=== PATIENT | female | born 1970 | race Caucasian/White ===

== ENCOUNTER 2018-10-21 21:22 | Observation (INO) ==
[2018-10-21] MEDS ORDERED: SODIUM CHLORIDE 0.9% 500 ML IV SCH (22:00)
[2018-10-21 22:15] LABS: Hematocrit (blood only) 43.7 % (37-47); Hemoglobin 15.1 g/dL (12.0-16.0); Mean Corpuscular Hgb Conc 34.6 g/dL (32-36); Mean Platelet Volume 11.1 fL (7.4-10.4); Platelet Count 424 K/uL (130-400); RDW Coefficient of Variation 14.1 % (11.5-14.5); RDW Standard Deviation 49.2 fL (36.4-46.3); Red Blood Count 4.55 M/uL (4.2-5.4); White Blood Count 15.28 K/uL (4.8-10.8)
--- NOTE | 2018-10-21 22:15 | Emergency Department Note ---
Entered by Brandon Bazan acting as a scribe for Shiv Fulton DO History of Present Illness General Chief complaint: Cardiac Assessment Stated complaint: HEART NOT POUNDING RIGHT Source: patient History of Present Illness Provider complaint: Fluttering Onset (ago): hour(s) 1 Location: chest Pain Consistency: + constant Relieved By: + none Exacerbated By: + none Associated symptoms: + denies other symptoms (problems eating/drinking); no chest pain and no shortness of breath Treatments prior to arrival: none The patient is a 48 year old female who presents to the Emergency Room in need of a cardiac assessment. The patient reports that she gets intermittent fluttering that lasts for 15 seconds and that this has been going on for years, ever since her past heart attack. The fluttering usually subsides, but it did not stop tonight which prompted her to come to the ED. She adds that she has a heart murmur. The patient states that the fluttering started about 1 hour ago. The patient denies chest pain, shortness of breath, and problems eating/drinking. The patient is not currently on a blood thinner and states that she does not use tobacco/alcohol. She adds that she has a past surgical history of a hysterectomy due to cervical cancer. Home Medications Home Medications Medication Instructions Recorded Confirmed Type aspirin [Aspir-81] 81 mg PO DAILY 10/22/18 10/22/18 History ibuprofen [Advil] 600 mg PO DIRECTED PRN 10/22/18 10/22/18 History metoprolol succinate 100 mg PO BID 10/22/18 10/22/18 History omeprazole 20 mg PO DAILY 10/22/18 10/22/18 History rosuvastatin [Crestor] 40 mg PO HS 10/22/18 10/22/18 History Allergies Allergy/AdvReac Type Severity Reaction Status Date / Time Penicillins Allergy Severe SOB, HIVES Verified 10/22/18 01:19 fentanyl Allergy Intermediate ITCHY HIVES Verified 10/22/18 01:19 morphine Allergy Intermediate ITCHY HIVES Verified 10/22/18 01:19 adhesive Allergy Mild LOCAL Verified 10/22/18 01:19 HIVE/RASH NITRO AdvReac Intermediate profuse Uncoded 10/22/18 01:19 vomiting increases heart rate Past Med/Surg History Medical History CAD (coronary artery disease) Social History Preferred Language: Kazakh Beliefs That Will Affect Care: None Current Living Situation: Spouse Other Information That Helps Us Care for You: No Feels Safe at Home: Yes Safety Concerns: Feels Safe At This Time Smoking Status: Never smoker Hx Alcohol Use: No Hx Substance Use: No Review of Systems See HPI for pertinent positives & negatives. and A total of 10 systems reviewed and were otherwise negative Physical Exam Vital Signs Vital Signs - 24 hr 10/21/18 21:41 10/21/18 23:03 10/21/18 23:14 Temperature 36.9 C Temperature Source Oral Sepsis Recent Fever Within 48 Hours No Sepsis New/Unexplained Change in Mental Status No Sepsis Action Taken by Nursing No Action Required Pulse Rate 172 H 100 H Pulse Rate [Right Finger] 97 H Pulse Rhythm [Right Finger] Regular Pulse Strength [Right Finger] Normal Respiratory Rate 20 98 H Respiratory Effort / Characteristics Non-Labored Spontaneous Non-Labored Spontaneous Respiratory Depth Normal Normal Respiratory Pattern Regular Blood Pressure 212/114 H 169/101 H Blood Pressure [Left Arm] Blood Pressure [Right Arm] 169/101 H Blood Pressure Mean 146 Blood Pressure Mean [Left Arm] Blood Pressure Mean [Right Arm] 123 Blood Pressure Position Sitting Blood Pressure Position [Left Arm] Blood Pressure Position [Right Arm] Pulse Oximetry 98 98 Oxygen Delivery Method Room Air Room Air 10/21/18 23:38 10/21/18 23:52 10/22/18 00:17 Temperature Temperature Source Sepsis Recent Fever Within 48 Hours Sepsis New/Unexplained Change in Mental Status Sepsis Action Taken by Nursing Pulse Rate 99 H 92 H Pulse Rate [Right Finger] 92 H Pulse Rhythm [Right Finger] Regular Pulse Strength [Right Finger] Normal Respiratory Rate 18 Respiratory Effort / Characteristics Non-Labored Spontaneous Respiratory Depth Normal Respiratory Pattern Blood Pressure 161/91 H 162/101 H Blood Pressure [Left Arm] Blood Pressure [Right Arm] 141/96 H Blood Pressure Mean Blood Pressure Mean [Left Arm] Blood Pressure Mean [Right Arm] 111 Blood Pressure Position Blood Pressure Position [Left Arm] Blood Pressure Position [Right Arm] Pulse Oximetry 98 Oxygen Delivery Method Room Air 10/22/18 01:00 10/22/18 02:25 10/22/18 03:00 Temperature 37.1 C Temperature Source Oral Sepsis Recent Fever Within 48 Hours Sepsis New/Unexplained Change in Mental Status Sepsis Action Taken by Nursing Pulse Rate Pulse Rate [Right Finger] 93 H 78 88 Pulse Rhythm [Right Finger] Regular Regular Regular Pulse Strength [Right Finger] Normal Normal Normal Respiratory Rate 18 18 18 Respiratory Effort / Characteristics Non-Labored Spontaneous Non-Labored Non-Labored Spontaneous Respiratory Depth Normal Normal Normal Respiratory Pattern Regular Regular Blood Pressure Blood Pressure [Left Arm] Blood Pressure [Right Arm] 156/81 H 181/107 H 161/101 H Blood Pressure Mean Blood Pressure Mean [Left Arm] Blood Pressure Mean [Right Arm] 106 131 121 Blood Pressure Position Blood Pressure Position [Left Arm] Blood Pressure Position [Right Arm] Pulse Oximetry 97 98 97 Oxygen Delivery Method Room Air Room Air Room Air 10/22/18 03:25 10/22/18 04:18 10/22/18 07:30 Temperature 37.1 C 36.7 C 36.8 C Temperature Source Oral Oral Oral Sepsis Recent Fever Within 48 Hours Sepsis New/Unexplained Change in Mental Status Sepsis Action Taken by Nursing Pulse Rate Pulse Rate [Right Finger] 92 H 90 85 Pulse Rhythm [Right Finger] Pulse Strength [Right Finger] Respiratory Rate 18 16 16 Respiratory Effort / Characteristics Non-Labored Spontaneous Respiratory Depth Normal Normal Respiratory Pattern Regular Blood Pressure Blood Pressure [Left Arm] Blood Pressure [Right Arm] 161/101 H 137/83 115/75 Blood Pressure Mean Blood Pressure Mean [Left Arm] Blood Pressure Mean [Right Arm] 121 101 88 Blood Pressure Position Blood Pressure Position [Left Arm] Blood Pressure Position [Right Arm] Lying Lying Pulse Oximetry 97 96 97 Oxygen Delivery Method Room Air Room Air 10/22/18 07:45 10/22/18 11:21 10/22/18 13:11 Temperature 36.8 C 36.8 C Temperature Source Oral Sepsis Recent Fever Within 48 Hours Sepsis New/Unexplained Change in Mental Status Sepsis Action Taken by Nursing Pulse Rate 84 Pulse Rate [Right Finger] 86 86 Pulse Rhythm [Right Finger] Pulse Strength [Right Finger] Respiratory Rate 18 18 Respiratory Effort / Characteristics Respiratory Depth Respiratory Pattern Blood Pressure Blood Pressure [Left Arm] 131/81 131/81 Blood Pressure [Right Arm] 115/75 Blood Pressure Mean Blood Pressure Mean [Left Arm] 97 Blood Pressure Mean [Right Arm] Blood Pressure Position Blood Pressure Position [Left Arm] Lying Blood Pressure Position [Right Arm] Pulse Oximetry 96 96 Oxygen Delivery Method Room Air GENERAL: Patient is awake alert in no acute distress patient is resting comfortably and showing no signs of anxiety EYES: The conjunctivae are clear. The pupils are round and reactive. EARS, NOSE, MOUTH AND THROAT: The nose is without any evidence of any deformity. Mucous membranes are moist tongue is midline NECK: The neck is nontender and supple. RESPIRATORY: Normal respiratory effort is noted there is no evidence of wheezing rhonchi or rales CARDIOVASCULAR: Tachycardic rate with regular rhythm was noted. A systolic murmur was noted on auscultation. GASTROINTESTINAL: The abdomen is soft. Bowel sounds are present in all quadr ants. Abdomen is nontender MUSCULOSKELETAL/EXTREMITIES: There is no evidence of gross deformity full range of motion is noted in the hips and shoulders SKIN: There is no obvious evidence of any rash. There are no petechiae, pallor or cyanosis noted. NEUROLOGIC: Patient is awake alert and oriented x3 strength is symmetric patellar reflexes are 2+ bilaterally Course 2206: Past medical records reviewed. The patient was evaluated in room D2B, and a complete history and physical examination were performed. 2318: I reviewed the patient's case with Dr. Razakelton Hospitalist. He will evaluate the patient for further management. Administered Medications Discontinued Medications Aspirin (Ecotrin Ectab) 81 mg PO DAILY [facility] Stop: 11/21/18 08:59 Last Admin: 10/22/18 09:44 Dose: 81 mg Documented by: [id number] Heparin Sodium/Dextrose (Heparin Sodium/Dextrose) Confirm Administered Dose 25,000 units IV .STK-MED ONE Stop: 10/22/18 02:11 Last Admin: 10/22/18 03:17 Dose: Not Given Documented by: [id number] Sodium Chloride (Nss) 500 mls @ 999 mls/hr IV .Q31M [facility] Stop: 10/21/18 22:30 Last Infusion: 10/21/18 23:04 Dose: 0 mls/hr Documented by: [id number] Admin: 10/21/18 22:07 Dose: 999 mls/hr Documented by: [id number] Heparin Sodium/Dextrose (Heparin Sodium/Dextrose) 25,000 units in 500 mls @ 24 mls/hr IV .[id number] [facility]; Protocol Stop: 11/21/18 02:14 Last Titration: 10/22/18 10:24 Dose: 0 units/hr, 0 mls/hr Documented by: [id number] Cosigned by: [id number] Admin: 10/22/18 02:17 Dose: 1,200 units/hr, 24 mls/hr Documented by: [id number] Cosigned by: [id number] Lactated Ringer's (Lr) 1,000 mls @ 60 mls/hr IV .[id number] ONE Stop: 10/22/18 19:54 Last Admin: 10/22/18 03:26 Dose: 60 mls/hr Documented by: [id number] Metoprolol Succinate (Toprol Xl) 25 mg PO NOW STA Stop: 10/22/18 01:55 Last Admin: 10/22/18 02:23 Dose: 25 mg Documented by: [id number] Metoprolol Succinate (Toprol Xl) 125 mg PO BID ROSELIA Stop: 11/21/18 08:59 Last Admin: 10/22/18 09:44 Dose: 125 mg Documented by: [id number] Metoprolol Tartrate (Lopressor) 5 mg IV Q5M PRN PRN Reason: Tachycardia Stop: 11/20/18 23:06 Last Admin: 10/21/18 23:52 Dose: 5 mg Documented by: [id number] Admin: 10/21/18 23:38 Dose: 5 mg Documented by: [id number] Admin: 10/21/18 23:14 Dose: 5 mg Documented by: [id number] Metoprolol Tartrate (Lopressor) 25 mg PO NOW STA Stop: 10/22/18 01:52 Last Admin: 10/22/18 02:24 Dose: 25 mg Documented by: [id number] Pantoprazole Sodium (Protonix) 40 mg PO DAILY ROSELIA Stop: 11/21/18 08:59 Last Admin: 10/22/18 09:49 Dose: Not Given Documented by: [id number] Perflutren Lipid Microsphere (Definity) 2 ml IV ONCE ONE Stop: 10/22/18 08:48 Last Admin: 10/22/18 08:48 Dose: 2 ml Documented by: [id number] Potassium Chloride (Klor-Con M20) 60 meq PO NOW STA Stop: 10/21/18 23:23 Last Admin: 10/21/18 23:38 Dose: 60 meq Documented by: [id number] Medical Decision Making Differential Diagnosis Differential diagnosis: Etiologies such as premature contractions, electrolyte abnormality, cardiac dysrhythmia, thyroid dysfunction, pulmonary embolism, infection, gastrointestinal, as well as others were entertained. Medical Records Attestation: I reviewed the patient's medical records. Home Medications Current Medication List: was personally reviewed by me Laboratory Data Attestation: I reviewed the patient's lab results. Result diagrams: 10/22/18 08:02 10/22/18 08:02 Lab Results 10/21/18 10/21/18 10/21/18 Range/Units 21:55 22:00 22:00 WBC (4.8-10.8) K/uL RBC (4.2-5.4) M/uL Hgb (12.0-16.0) g/dL Hct (37-47) % MCV (80-100) fL MCH (25-34) pg MCHC (32-36) g/dL RDW Std Deviation (36.4-46.3) fL RDW Coeff of Prosper (11.5-14.5) % Plt Count (130-400) K/uL MPV (7.4-10.4) fL Immature Gran % (Auto) % Neut % (Auto) % Lymph % (Auto) % [place] % (Auto) % Eos % (Auto) % Baso % (Auto) % Immature Gran # (Auto) (0.00-0.02) K/uL Neut # (Auto) (1.4-6.5) K/uL Lymph # (Auto) (1.2-3.4) K/uL [place] # (Auto) (0.11-0.59) K/uL Eos # (Auto) (0-0.5) K/uL Baso # (Auto) (0-0.2) K/uL PT 10.3 (9.0-12.0) Seconds INR 1.0 (0.9-1.1) APTT 26.2 (21.0-31.0) Seconds PTT Ratio 1.0 Sodium 140 (136-145) mmol/L Potassium 3.4 L (3.5-5.1) mmol/L Chloride 105 (98-107) mmol/L Carbon Dioxide 27 (21-32) mmol/L Anion Gap 9.0 (3-11) BUN 12 (7-18) mg/dl Creatinine 0.84 (0.6-1.2) mg/dl Est Cr Clr Drug Dosing 86.9 ml/min Est GFR ( Amer) 95.3 Est GFR (Non-Af Amer) 82.2 BUN/Creatinine Ratio 13.7 (10-20) Glucose 131 H (70-99) mg/dl Estimat Average Glucose mg/dl Hemoglobin A1c (4.5-5.6) % Lactate (0.4-2.0) mmol/L Calcium 9.4 (8.5-10.1) mg/dl Magnesium 2.0 (1.8-2.4) mg/dl Total Bilirubin 0.5 (0.2-1) mg/dl AST 34 (15-37) U/L ALT 55 (12-78) U/L Alkaline Phosphatase 134 H (45-117) U/L Troponin I < 0.015 (0-0.045) ng/ml Total Protein 7.8 (6.4-8.2) gm/dl Albumin 3.9 (3.4-5.0) gm/dl Globulin 3.9 (2.5-4.0) gm/dl Albumin/Globulin Ratio 1.0 (0.9-2) Procalcitonin (0-0.5) ng/ml TSH 9.340 H (0.300-4.500) uIu/ml Free T4 1.12 (0.8-1.6) ng/dl Total T3 (0.60-1.81) ng/ml Urine Color Yellow Urine Appearance Clear (Clear) Urine pH 6.0 (4.5-7.5) Ur Specific [place] 1.008 (1.000-1.030) Urine Protein Negative (Negative) Urine Glucose (UA) Negative (Negative) Urine Ketones Negative (Negative) Urine Blood Negative (Negative) Urine Nitrite Negative (Negative) Urine Bilirubin Negative (Negative) Urine Urobilinogen Negative (Negative) Ur Leukocyte Esterase Negative (Negative) 10/21/18 10/21/18 10/21/18 Range/Units 22:00 22:00 22:00 WBC 15.28 H (4.8-10.8) K/uL RBC 4.55 (4.2-5.4) M/uL Hgb 15.1 (12.0-16.0) g/dL Hct 43.7 (37-47) % MCV 96.0 (80-100) fL MCH 33.2 (25-34) pg MCHC 34.6 (32-36) g/dL RDW Std Deviation 49.2 H (36.4-46.3) fL RDW Coeff of Prosper 14.1 (11.5-14.5) % Plt Count 424 H (130-400) K/uL MPV 11.1 H (7.4-10.4) fL Immature Gran % (Auto) 0.2 % Neut % (Auto) 38.6 % Lymph % (Auto) 45.5 % [place] % (Auto) 12.6 % Eos % (Auto) 2.6 % Baso % (Auto) 0.5 % Immature Gran # (Auto) 0.03 H (0.00-0.02) K/uL Neut # (Auto) 5.88 (1.4-6.5) K/uL Lymph # (Auto) 6.96 H (1.2-3.4) K/uL [place] # (Auto) 1.93 H (0.11-0.59) K/uL Eos # (Auto) 0.40 (0-0.5) K/uL Baso # (Auto) 0.08 (0-0.2) K/uL PT (9.0-12.0) Seconds INR (0.9-1.1) APTT (21.0-31.0) Seconds PTT Ratio Sodium (136-145) mmol/L Potassium (3.5-5.1) mmol/L Chloride (98-107) mmol/L Carbon Dioxide (21-32) mmol/L Anion Gap (3-11) BUN (7-18) mg/dl Creatinine (0.6-1.2) mg/dl Est Cr Clr Drug Dosing ml/min Est GFR ( Amer) Est GFR (Non-Af Amer) BUN/Creatinine Ratio (10-20) Glucose (70-99) mg/dl Estimat Average Glucose mg/dl Hemoglobin A1c (4.5-5.6) % Lactate (0.4-2.0) mmol/L Calcium (8.5-10.1) mg/dl Magnesium Cancelled (1.8-2.4) mg/dl Total Bilirubin (0.2-1) mg/dl AST (15-37) U/L ALT (12-78) U/L Alkaline Phosphatase (45-117) U/L Troponin I (0-0.045) ng/ml Total Protein (6.4-8.2) gm/dl Albumin (3.4-5.0) gm/dl Globulin (2.5-4.0) gm/dl Albumin/Globulin Ratio (0.9-2) Procalcitonin < 0.05 (0-0.5) ng/ml TSH Cancelled (0.300-4.500) uIu/ml Free T4 (0.8-1.6) ng/dl Total T3 (0.60-1.81) ng/ml Urine Color Urine Appearance (Clear) Urine pH (4.5-7.5) Ur Specific [place] (1.000-1.030) Urine Protein (Negative) Urine Glucose (UA) (Negative) Urine Ketones (Negative) Urine Blood (Negative) Urine Nitrite (Negative) Urine Bilirubin (Negative) Urine Urobilinogen (Negative) Ur Leukocyte Esterase (Negative) 10/21/18 10/21/18 10/21/18 Range/Units 22:00 22:00 23:59 WBC (4.8-10.8) K/uL RBC (4.2-5.4) M/uL Hgb (12.0-16.0) g/dL Hct (37-47) % MCV (80-100) fL MCH (25-34) pg MCHC (32-36) g/dL RDW Std Deviation (36.4-46.3) fL RDW Coeff of Prosper (11.5-14.5) % Plt Count (130-400) K/uL MPV (7.4-10.4) fL Immature Gran % (Auto) % Neut % (Auto) % Lymph % (Auto) % [place] % (Auto) % Eos % (Auto) % Baso % (Auto) % Immature Gran # (Auto) (0.00-0.02) K/uL Neut # (Auto) (1.4-6.5) K/uL Lymph # (Auto) (1.2-3.4) K/uL [place] # (Auto) (0.11-0.59) K/uL Eos # (Auto) (0-0.5) K/uL Baso # (Auto) (0-0.2) K/uL PT (9.0-12.0) Seconds INR (0.9-1.1) APTT (21.0-31.0) Seconds PTT Ratio Sodium (136-145) mmol/L Potassium (3.5-5.1) mmol/L Chloride (98-107) mmol/L Carbon Dioxide (21-32) mmol/L Anion Gap (3-11) BUN (7-18) mg/dl Creatinine (0.6-1.2) mg/dl Est Cr Clr Drug Dosing ml/min Est GFR ( Amer) Est GFR (Non-Af Amer) BUN/Creatinine Ratio (10-20) Glucose (70-99) mg/dl Estimat Average Glucose 137 mg/dl Hemoglobin A1c 6.4 H (4.5-5.6) % Lactate 1.8 (0.4-2.0) mmol/L Calcium (8.5-10.1) mg/dl Magnesium (1.8-2.4) mg/dl Total Bilirubin (0.2-1) mg/dl AST (15-37) U/L ALT (12-78) U/L Alkaline Phosphatase (45-117) U/L Troponin I (0-0.045) ng/ml Total Protein (6.4-8.2) gm/dl Albumin (3.4-5.0) gm/dl Globulin (2.5-4.0) gm/dl Albumin/Globulin Ratio (0.9-2) Procalcitonin (0-0.5) ng/ml TSH (0.300-4.500) uIu/ml Free T4 (0.8-1.6) ng/dl Total T3 0.91 (0.60-1.81) ng/ml Urine Color Urine Appearance (Clear) Urine pH (4.5-7.5) Ur Specific [place] (1.000-1.030) Urine Protein (Negative) Urine Glucose (UA) (Negative) Urine Ketones (Negative) Urine Blood (Negative) Urine Nitrite (Negative) Urine Bilirubin (Negative) Urine Urobilinogen (Negative) Ur Leukocyte Esterase (Negative) 10/22/18 10/22/18 10/22/18 Range/Units 08:02 08:02 08:02 WBC 12.52 H (4.8-10.8) K/uL RBC 4.51 (4.2-5.4) M/uL Hgb 14.6 (12.0-16.0) g/dL Hct 43.4 (37-47) % MCV 96.2 (80-100) fL MCH 32.4 (25-34) pg MCHC 33.6 (32-36) g/dL RDW Std Deviation 49.9 H (36.4-46.3) fL RDW Coeff of Prosper 14.2 (11.5-14.5) % Plt Count 423 H (130-400) K/uL MPV 11.0 H (7.4-10.4) fL Immature Gran % (Auto) 0.2 % Neut % (Auto) 47.8 % Lymph % (Auto) 36.1 % [place] % (Auto) 13.1 % Eos % (Auto) 2.2 % Baso % (Auto) 0.6 % Immature Gran # (Auto) 0.03 H (0.00-0.02) K/uL Neut # (Auto) 5.99 (1.4-6.5) K/uL Lymph # (Auto) 4.52 H (1.2-3.4) K/uL [place] # (Auto) 1.64 H (0.11-0.59) K/uL Eos # (Auto) 0.27 (0-0.5) K/uL Baso # (Auto) 0.07 (0-0.2) K/uL PT (9.0-12.0) Seconds INR (0.9-1.1) APTT 52.2 H* (21.0-31.0) Seconds PTT Ratio 1.9 Sodium 141 (136-145) mmol/L Potassium 4.1 D (3.5-5.1) mmol/L Chloride 108 H (98-107) mmol/L Carbon Dioxide 27 (21-32) mmol/L Anion Gap 6.0 (3-11) BUN 10 (7-18) mg/dl Creatinine 0.67 (0.6-1.2) mg/dl Est Cr Clr Drug Dosing 108.6 ml/min Est GFR ( Amer) 120.5 Est GFR (Non-Af Amer) 103.9 BUN/Creatinine Ratio 15.1 (10-20) Glucose 100 H (70-99) mg/dl Estimat Average Glucose mg/dl Hemoglobin A1c (4.5-5.6) % Lactate (0.4-2.0) mmol/L Calcium 9.3 (8.5-10.1) mg/dl Magnesium (1.8-2.4) mg/dl Total Bilirubin (0.2-1) mg/dl AST (15-37) U/L ALT (12-78) U/L Alkaline Phosphatase (45-117) U/L Troponin I (0-0.045) ng/ml Total Protein (6.4-8.2) gm/dl Albumin (3.4-5.0) gm/dl Globulin (2.5-4.0) gm/dl Albumin/Globulin Ratio (0.9-2) Procalcitonin (0-0.5) ng/ml TSH (0.300-4.500) uIu/ml Free T4 (0.8-1.6) ng/dl Total T3 (0.60-1.81) ng/ml Urine Color Urine Appearance (Clear) Urine pH (4.5-7.5) Ur Specific [place] (1.000-1.030) Urine Protein (Negative) Urine Glucose (UA) (Negative) Urine Ketones (Negative) Urine Blood (Negative) Urine Nitrite (Negative) Urine Bilirubin (Negative) Urine Urobilinogen (Negative) Ur Leukocyte Esterase (Negative) Imaging Data Radiologist's Impression: Radiology results as stated below per my review and the radiologist's interpretation: XR chest 1V portable CLINICAL HISTORY: cardiac assessment COMPARISON STUDY: Chest radiograph August 21, 2008. FINDINGS: There are median sternotomy wires, mediastinal surgical clips and left upper quadrant abdominal surgical clips. No pneumothorax or pleural effusion is noted. There is no consolidation or evidence for pulmonary edema. Cardiomediastinal silhouette is stable. Appearance of the chest is unchanged. IMPRESSION: No acute cardiopulmonary findings. Electronically signed by: Blaine Bradley M.D. 10/21/2018 10:26 PM ECG Data Attestation: I personally reviewed and interpreted this ECG as follows: Indication: other (a fib) Rate (beats per minute): 153 Rhythm: atrial fibrillation (with rapid ventricular response ) Findings: + other (diffuse ST depressions noted); no PAC and no PVC Comparison ECG Date: from (06/15/13) Change: the following changes noted (all changes) Additional Comments: Repeat EKG: Sinus tachycardia, rate of 104 bpm, no ectopy, persistence of lateral T depression noted, changes are similar to 06/15/13 Blood Pressure Blood Pressure Findings: Elevated blood pressure Blood Pressure Disposition: further management by hospitalist RAMU Helms The patient is a 48-year-old female who presented to the emergency department for an evaluation of palpitations. The patient was found to be in rapid atrial fibrillation with diffuse ST segment depressions. The patient was found to be in normal sinus rhythm upon my evaluation. Repeat EKG did reveal normal sinus rhythm. The patient appears to have significant ST segment abnormalities with the increased rate. I discussed the patient's laboratory and radiographic studies with her. She was treated with IV fluids as well as IV Lopressor. She continued to be in normal sinus rhythm. I discussed her case with the on-call [facility] driving instructor group. At this time they have recommended that we strongly consider keeping the patient in the hospital for further management as well as possible echocardiogram. I discussed this case with the on-call [facility] hospitalist. They have agreed to evaluate the patient in the emergency department for further management and disposition. Impression & Plan Atrial fibrillation with rapid ventricular response, Heart palpitations Discharge Plan Visit Data *Final* Discharge Date/Time: 10/22/18 02:30 Chief Complaint: Cardiac Assessment Stated Complaint: HEART NOT POUNDING RIGHT ED Provider: Shiv Fulton Discharge Problem: Atrial fibrillation with rapid ventricular response, Heart palpitations Patient Disposition: Admitted As Inpatient Condition: Good Discharge Instructions Interventions: ED Discharge Assessment Last Done: 10/22/18 02:30 The scribe's documentation has been prepared under my direction and personally reviewed by me in its entirety. I confirm that the note above accurately reflects all work, treatment, procedures, and medical decision making performed by me.
[2018-10-21 22:25] LABS: Partial Thromboplastin Time 26.2 Seconds (21.0-31.0); Prothrombin Time 10.3 Seconds (9.0-12.0)
--- NOTE | 2018-10-21 22:27 | XRay Report ---
XR chest 1V portable CLINICAL HISTORY: cardiac assessment COMPARISON STUDY: Chest radiograph August 21, 2008. FINDINGS: There are median sternotomy wires, mediastinal surgical clips and left upper quadrant abdom inal surgical clips. No pneumothorax or pleural effusion is noted. There is no consolidation or evide nce for pulmonary edema. Cardiomediastinal silhouette is stable. Appearance of the chest is unchanged . IMPRESSION: No acute cardiopulmonary findings. Electronically signed by: Blaine Bradley M.D. 10/21/2018 10:26 PM
[2018-10-21 22:31] LABS: Alanine Aminotransferase 55 U/L (12-78); Albumin Level 3.9 gm/dl (3.4-5.0); Aspartate Aminotransferase 34 U/L (15-37); BUN Creatinine Ratio 13.7 (10-20); Blood Urea Nitrogen 12 mg/dl (7-18); Calcium 9.4 mg/dl (8.5-10.1); Carbon Dioxide 27 mmol/L (21-32); Chloride 105 mmol/L (98-107); Creatinine Clr Calc Pharmacy 86.9 ml/min; Est GFR (African American) 95.3; Est GFR (Non-African American) 82.2; Glucose 131 mg/dl (70-99); Potassium 3.4 mmol/L (3.5-5.1); Sodium 140 mmol/L (136-145)
[2018-10-21 22:39] LABS: Appearance Urine Clear (Clear); Bilirubin Urine Negative (Negative); Blood Urine Negative (Negative); Color Urine Yellow; Glucose Urine UA Negative (Negative); Ketones Urine Negative (Negative); Leukocyte Esterase Urine Negative (Negative); Nitrite Urine Negative (Negative); Protein Urine Negative (Negative); Specific Gravity Urine 1.008 (1.000-1.030); Urobilinogen Urine Negative (Negative)
[2018-10-21 22:42] LABS: Alkaline Phosphatase 134 U/L (45-117); Bilirubin,Total 0.5 mg/dl (0.2-1); Globulin 3.9 gm/dl (2.5-4.0); Total Protein 7.8 gm/dl (6.4-8.2); Troponin I < 0.015 ng/ml (0-0.045)
[2018-10-21 22:54] LABS: T4 Free Thyroxine 1.12 ng/dl (0.8-1.6)
[2018-10-21 23:11] LABS: Basophils # (auto) 0.08 K/uL (0-0.2); Basophils % (auto) 0.5 %; Eosinophils % (auto) 2.6 %; Immature Granulocytes # (auto) 0.03 K/uL (0.00-0.02); Immature Granulocytes % (auto) 0.2 %; Lymphocytes # (auto) 6.96 K/uL (1.2-3.4); Lymphocytes % (auto) 45.5 %; Monocytes # (auto) 1.93 K/uL (0.11-0.59); Monocytes % (auto) 12.6 %; Neutrophils # (auto) 5.88 K/uL (1.4-6.5); Neutrophils % (auto) 38.6 %
[2018-10-21] MEDS: METOPROLOL TARTRATE 1 MG/ML VIAL IV PRN ×3 (23:14→23:52)
[2018-10-21] MEDS ORDERED: POTASSIUM CHLORIDE 20 MEQ TABCR PO STA (23:22)
[2018-10-22] MEDS ORDERED: METOPROLOL TARTRATE 50 MG TAB PO STA (01:51)
--- NOTE | 2018-10-22 01:52 | History & Physical Report ---
Date of Service October 22, 2018 Assessment & Plan (1) Paroxysmal A-fib: New onset ? Duration unknown given intermittent palpitation episodes over the last 10 years Possibly related to uncontrolled BP from stress, recent antibiotic /steroid Rx for pneumonia, hypokalemia, anxiety Patient currently NSR. CAD status post CABG hx aortic stenosis/aortic regurgitation as per records Hodgkin's lymphoma status post splenectomy, chemotherapy, radiation Hyperglycemia likely steroid-induced rule out DM past tobacco abuse. OBS Medical telemetry Increase maintenance Toprol XL from 100 mg twice daily to 125 mg BID for now . Replace potassium Anxiolytic as needed TTE, Cardiology consult RE PAF IV heparin for thromboembolic prophylaxis for PAF of undetermined duration until patient seen by Cardiology Check hemoglobin A1c DVT prophylaxis. Heparin Full code History of Present Illness Chief Complaint: Palpitations Primary Care Provider: Devonte De Leon MD History obtained from patient and records. Medical history significant for CAD status post CABG, hypertension, hyperlipidemia, aortic stenosis/aortic regurgitation as per records, Hodgkin's lymphoma status post splenectomy, chemotherapy/radiation, past tobacco abuse. Patient seen at PCPs office 3 weeks ago for cough productive of yellow phlegm and chest congestion. Azithromycin and prednisone course prescribed for RLL pneumonia on CXR. Symptoms improved although patient worried about possible effect of steroid on her blood pressure and pulse. 10 years history of intermittent palpitations, short lived, usually lasting 15 seconds and then would go away. Occurrence every 3-4 months. Last episode was last month. Previous outpatient Holter monitor 2010 predominantly sinus rhythm as per records. Last night patient noted persistent chest fluttering symptoms lasting almost an hour. No chest pain, no S OB. Headache from sinus congestion as per patient Patient compliant with home medications. Usual stress at home. At the ER, patient noted to be in rapid A. fib, cardiac rate noted to be 170s. SBP noted to be 210s. Patient converted to NSR after IVF and IV Lopressor administration. 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 Allergies Allergy/AdvReac Type Severity Reaction Status Date / Time Penicillins Allergy Severe SOB, HIVES Verified 10/22/18 01:19 fentanyl Allergy Intermediate ITCHY HIVES Verified 10/22/18 01:19 morphine Allergy Intermediate ITCHY HIVES Verified 03/12/19 01:19 adhesive Allergy Mild LOCAL Verified 10/22/18 01:19 HIVE/RASH NITRO AdvReac Intermediate profuse Uncoded 10/22/18 01:19 vomiting increases heart rate Home Medications Home Medications Medication Instructions Recorded Confirmed Type aspirin [Aspir-81] 81 mg PO DAILY 10/22/18 10/22/18 History ibuprofen [Advil] 600 mg PO DIRECTED PRN 10/22/18 10/22/18 History metoprolol succinate 100 mg PO BID 10/22/18 10/22/18 History omeprazole 20 mg PO DAILY 10/22/18 10/22/18 History rosuvastatin [Crestor] 40 mg PO HS 10/22/18 10/22/18 History Past Med/Surg History Medical History CAD (coronary artery disease) Social History Preferred Language: Swedish Beliefs That Will Affect Care: None Current Living Situation: Spouse Other Information That Helps Us Care for You: No Feels Safe at Home: Yes Safety Concerns: Feels Safe At This Time Smoking Status: Never smoker Hx Alcohol Use: No Hx Substance Use: No Review of Systems As per HPI, all 10 systems reviewed, all other ROS negative Physical Exam Vital Signs (Past 24 Hours): Last Vital Signs Temp 36.9 C 10/21/18 21:41 Pulse 93 H 10/22/18 01:00 Resp 18 10/22/18 01:00 BP 156/81 H 10/22/18 01:00 Pulse Ox 97 10/22/18 01:00 Physical Exam: GENERAL: Comfortable, obese, slightly anxious, no respiratory distress SKIN: Normal color, warm HEENT: Bespectacled, pink palpebral conjunctivae, no ptosis, dry buccal mucosa NECK : Supple, short, no tenderness CHEST : CTA, no tenderness HEART : RRR, systolic murmur ABDOMEN: Some distention, nontender EXTREMITIES : No LE swelling/tenderness, no other conspicuous deformities noted NEUROLOGIC : Coherent, no facial asymmetry, no other gross focality Results & Data Laboratory Results Laboratory Results WBC 15.28 K/uL (4.8-10.8) H 10/21/18 22:00 RBC 4.55 M/uL (4.2-5.4) 10/21/18 22:00 Hgb 15.1 g/dL (12.0-16.0) 10/21/18 22:00 Hct 43.7 % (37-47) 10/21/18 22:00 MCV 96.0 fL (80-100) 10/21/18 22:00 MCH 33.2 pg (25-34) 10/21/18 22:00 MCHC 34.6 g/dL (32-36) 10/21/18 22:00 RDW Std Deviation 49.2 fL (36.4-46.3) H 10/21/18 22:00 RDW Coeff of [place]per 14.1 % (11.5-14.5) 10/21/18 22:00 Plt Count 424 K/uL (130-400) H 10/21/18 22:00 MPV 11.1 fL (7.4-10.4) H 10/21/18 22:00 Immature Gran % (Auto) 0.2 % 10/21/18 22:00 Neut % (Auto) 38.6 % 10/21/18 22:00 Lymph % (Auto) 45.5 % 10/21/18 22:00 Stewart % (Auto) 12.6 % 10/21/18 22:00 Eos % (Auto) 2.6 % 10/21/18 22:00 Baso % (Auto) 0.5 % 10/21/18 22:00 Immature Gran # (Auto) 0.03 K/uL (0.00-0.02) H 10/21/18 22:00 Neut # (Auto) 5.88 K/uL (1.4-6.5) 10/21/18 22:00 Lymph # (Auto) 6.96 K/uL (1.2-3.4) H 10/21/18 22:00 Stewart # (Auto) 1.93 K/uL (0.11-0.59) H 10/21/18 22:00 Eos # (Auto) 0.40 K/uL (0-0.5) 10/21/18 22:00 Baso # (Auto) 0.08 K/uL (0-0.2) 10/21/18 22:00 PT 10.3 Seconds (9.0-12.0) 10/21/18 22:00 INR 1.0 (0.9-1.1) 10/21/18 22:00 APTT 26.2 Seconds (21.0-31.0) 10/21/18 22:00 PTT Ratio 1.0 10/21/18 22:00 Sodium 140 mmol/L (136-145) 10/21/18 22:00 Potassium 3.4 mmol/L (3.5-5.1) L 10/21/18 22:00 Chloride 105 mmol/L (98-107) 10/21/18 22:00 Carbon Dioxide 27 mmol/L (21-32) 10/21/18 22:00 Anion Gap 9.0 (3-11) 10/21/18 22:00 BUN 12 mg/dl (7-18) 10/21/18 22:00 Creatinine 0.84 mg/dl (0.6-1.2) 10/21/18 22:00 Est Cr Clr Drug Dosing 86.9 ml/min 10/21/18 22:00 Est GFR ( Amer) 95.3 10/21/18 22:00 Est GFR (Non-Af Amer) 82.2 10/21/18 22:00 BUN/Creatinine Ratio 13.7 (10-20) 10/21/18 22:00 Glucose 131 mg/dl (70-99) H 10/21/18 22:00 Lactate 1.8 mmol/L (0.4-2.0) 10/21/18 23:59 Calcium 9.4 mg/dl (8.5-10.1) 10/21/18 22:00 Magnesium 2.0 mg/dl (1.8-2.4) 10/21/18 22:00 Total Bilirubin 0.5 mg/dl (0.2-1) 10/21/18 22:00 AST 34 U/L (15-37) 10/21/18 22:00 ALT 55 U/L (12-78) 10/21/18 22:00 Alkaline Phosphatase 134 U/L (45-117) H 10/21/18 22:00 Troponin I < 0.015 ng/ml (0-0.045) 10/21/18 22:00 Total Protein 7.8 gm/dl (6.4-8.2) 10/21/18 22:00 Albumin 3.9 gm/dl (3.4-5.0) 10/21/18 22:00 Globulin 3.9 gm/dl (2.5-4.0) 10/21/18 22:00 Albumin/Globulin Ratio 1.0 (0.9-2) 10/21/18 22:00 Procalcitonin < 0.05 ng/ml (0-0.5) 10/21/18 22:00 TSH 9.340 uIu/ml (0.300-4.500) H 10/21/18 22:00 Free T4 1.12 ng/dl (0.8-1.6) 10/21/18 22:00 Total T3 0.91 ng/ml (0.60-1.81) 10/21/18 22:00 Urine Color Yellow 10/21/18 21:55 Urine Appearance Clear (Clear) 10/21/18 21:55 Urine pH 6.0 (4.5-7.5) 10/21/18 21:55 Ur Specific [place] 1.008 (1.000-1.030) 10/21/18 21:55 Urine Protein Negative (Negative) 10/21/18 21:55 Urine Glucose (UA) Negative (Negative) 10/21/18 21:55 Urine Ketones Negative (Negative) 10/21/18 21:55 Urine Blood Negative (Negative) 10/21/18 21:55 Urine Nitrite Negative (Negative) 10/21/18 21:55 Urine Bilirubin Negative (Negative) 10/21/18 21:55 Urine Urobilinogen Negative (Negative) 10/21/18 21:55 Ur Leukocyte Esterase Negative (Negative) 10/21/18 21:55 Diagnostic Findings Chest x-ray showed no acute pathology EKG as per my interpretation : Rate 150, A. fib, LAD, LAFB, ST depression lateral leads
[2018-10-22] MEDS ORDERED: METOPROLOL SUCC 50MG EXT REL TAB PO STA (01:54)
[2018-10-22] MEDS ORDERED: HEPARIN 25000 UNIT/500 ML D5W IV ONE (02:10)
[2018-10-22] MEDS ORDERED: Heparin IV Standard *NO* Bolus IV ONE (02:15)
[2018-10-22] MEDS ORDERED: HEPARIN STANDARD DEXTROSE 25,000 UNITS/500 ML IV SCH (02:15)
[2018-10-22] MEDS ORDERED: TRAMADOL HCL 50 MG TABLET PO PRN (03:07)
[2018-10-22] MEDS ORDERED: PROCHLORPERAZINE 5 MG in SYRINGE 4 ML IV PRN (03:07)
[2018-10-22] MEDS ORDERED: ACETAMINOPHEN 325 MG TAB PO PRN (03:07)
[2018-10-22] MEDS ORDERED: LORazepam 0.5 MG/1 ML VIAL IV PRN (03:07)
[2018-10-22] MEDS ORDERED: LACTATED RINGER'S 1,000 ML IV ONE (03:15)
[2018-10-22 07:32] LABS: Estimated Average Glucose 137 mg/dl; Hemoglobin A1C 6.4 % (4.5-5.6)
[2018-10-22 08:25] LABS: Basophils # (auto) 0.07 K/uL (0-0.2); Basophils % (auto) 0.6 %; Eosinophils # (auto) 0.27 K/uL (0-0.5); Eosinophils % (auto) 2.2 %; Hematocrit (blood only) 43.4 % (37-47); Hemoglobin 14.6 g/dL (12.0-16.0); Immature Granulocytes # (auto) 0.03 K/uL (0.00-0.02); Immature Granulocytes % (auto) 0.2 %; Lymphocytes # (auto) 4.52 K/uL (1.2-3.4); Lymphocytes % (auto) 36.1 %; Mean Corpuscular Hgb Conc 33.6 g/dL (32-36); Mean Corpuscular Volume 96.2 fL (80-100); Monocytes # (auto) 1.64 K/uL (0.11-0.59); Monocytes % (auto) 13.1 %; Neutrophils # (auto) 5.99 K/uL (1.4-6.5); Neutrophils % (auto) 47.8 %; Platelet Count 423 K/uL (130-400); RDW Coefficient of Variation 14.2 % (11.5-14.5); RDW Standard Deviation 49.9 fL (36.4-46.3); Red Blood Count 4.51 M/uL (4.2-5.4); White Blood Count 12.52 K/uL (4.8-10.8)
[2018-10-22 08:43] LABS: Partial Thromboplastin Ratio 1.9
[2018-10-22] MEDS ORDERED: PERFLUTREN LIPID MICROSPHERE (DEFINITY) IV ONE (08:47)
[2018-10-22 08:49] LABS: BUN Creatinine Ratio 15.1 (10-20); Calcium 9.3 mg/dl (8.5-10.1); Creatinine Clr Calc Pharmacy 108.6 ml/min; Est GFR (African American) 120.5; Est GFR (Non-African American) 103.9; Potassium 4.1 mmol/L (3.5-5.1)
[2018-10-22] MEDS ORDERED: ASPIRIN 81 MG ECTAB PO SCH (09:00)
[2018-10-22] MEDS ORDERED: METOPROLOL SUCC 50MG EXT REL TAB PO SCH (09:00)
[2018-10-22] MEDS ORDERED: PANTOprazole 40 MG TAB PO SCH (09:00)
[2018-10-22 09:02] LABS: Partial Thromboplastin Time 52.2 Seconds (21.0-31.0)
--- NOTE | 2018-10-22 12:11 | Hospitalist Progress Note ---
Date of Service October 22, 2018 Assessment & Plan (1) Paroxysmal A-fib: Admitted with atrial fibrillation with rapid clinical response Reverted to sinus rhythm Denies any symptoms this morning Appreciate cardiology input and recommendation ECHO; normal left ventricular cavity size, no wall motion abnormality, EF of 55- 60%, grade 2 diastolic dysfunction and mild calcific aortic valve without stenosis Can be discharged home as per cyber systems administrator (2) Coronary artery disease: Denies any symptoms of chest pain and/or palpitation (3) Hodgkin disease: No acute disease process Status post splenectomy (4) Migraine: Denies any Subjective She is a 48-year-old female with significant past medical history of CAD status post CABG, history of course continues to be status post splenectomy and paroxysmal A. fib was admitted with atrial fibrillation with rapid ventricular response yesterday. 10/22 The patient was seen and examined in the telemetry unit She denies any symptoms except some weakness She has been in sinus rhythm with controlled rate Physical Exam Vital Signs (Past 24 Hours): Last Vital Signs Temp 36.8 C 10/22/18 11:21 Pulse 86 10/22/18 11:21 Resp 18 10/22/18 11:21 BP 131/81 10/22/18 11:21 Pulse Ox 96 10/22/18 11:21 Physical Exam: No apparent distress at rest Constitutional: WD/WN, vitals as above Eyes: PERRL, conjunctivae normal, anicteric sclerae ENMT: external ear and nose normal, oropharynx normal Neck: trachea midline, no thyromegaly Respiratory: normal respiratory effort, lungs clear to auscultation Cardiovascular: Rate/Rhythm: regular rate and regular rhythm Heart Sounds: normal S1, normal S2 and + murmur (2/6 ESM over precordium) Gastrointestinal (Abdomen): normal bowel sounds, soft, nontender, no hepatosplenomegaly Neurologic: PERRL, EOMI, accommodation nl, no face palsy, no dysarthria Results & Data Laboratory Results Short CBC 10/21/18 10/22/18 Range/Units 22:00 08:02 WBC 15.28 H 12.52 H (4.8-10.8) K/uL Hgb 15.1 14.6 (12.0-16.0) g/dL Hct 43.7 43.4 (37-47) % Plt Count 424 H 423 H (130-400) K/uL BMP 10/21/18 10/22/18 22:00 08:02 Sodium 140 141 Potassium 3.4 L 4.1 D Chloride 105 108 H Carbon Dioxide 27 27 BUN 12 10 Creatinine 0.84 0.67 Glucose 131 H 100 H Calcium 9.4 9.3 Cardiac Enzymes 10/21/18 Range/Units 22:00 Troponin I < 0.015 (0-0.045) ng/ml Liver Function 10/21/18 Range/Units 22:00 Total Bilirubin 0.5 (0.2-1) mg/dl AST 34 (15-37) U/L ALT 55 (12-78) U/L Alkaline Phosphatase 134 H (45-117) U/L Albumin 3.9 (3.4-5.0) gm/dl Urine 10/21/18 Range/Units 21:55 Urine Color Yellow Urine Appearance Clear (Clear) Urine pH 6.0 (4.5-7.5) Ur Specific [place] 1.008 (1.000-1.030) Urine Protein Negative (Negative) Urine Glucose (UA) Negative (Negative) Medications Administered Current Inpatient Medications Acetaminophen (Tylenol) 650 mg PO Q4H PRN PRN Reason: Pain or Fever Stop: 11/21/18 03:06 Aspirin (Ecotrin Ectab) 81 mg PO DAILY [facility] Stop: 11/21/18 08:59 Last Admin: 10/22/18 09:44 Dose: 81 mg Documented by: Lactated Ringer's (Lr) 1,000 mls @ 60 mls/hr IV .[id number] ONE Stop: 10/22/18 19:54 Last Admin: 10/22/18 03:26 Dose: 60 mls/hr Documented by: Lorazepam (Ativan) 0.5 mg in 1 mls @ 1 mls/min IV Q4H PRN PRN Reason: Anxiety/Agitation Stop: 11/21/18 03:06 Prochlorperazine 5 mg/ Syringe 5 mls @ 5 mls/min IV Q6H PRN PRN Reason: Nausea And Vomiting Stop: 11/21/18 03:06 Metoprolol Succinate (Toprol Xl) 125 mg PO BID [facility] Stop: 11/21/18 08:59 Last Admin: 10/22/18 09:44 Dose: 125 mg Documented by: Pantoprazole Sodium (Protonix) 40 mg PO DAILY [facility] Stop: 11/21/18 08:59 Last Admin: 10/22/18 09:49 Dose: Not Given Documented by: Rosuvastatin Calcium (Crestor) 40 mg PO HS [facility] Stop: 11/21/18 20:59 Tramadol HCl (Ultram) 25 - 50 mg PO Q4H PRN PRN Reason: Pain Stop: 11/21/18 03:06
--- NOTE | 2018-10-22 13:58 | Consultation Report ---
DATE OF CONSULTATION: 10/22/2018 CONSULTATION REQUESTED BY: Dr. Fulton. REASON FOR CONSULTATION: Paroxysmal atrial fibrillation. HISTORY OF PRESENT ILLNESS: Ms. Unger is a very pleasant 48-year-old woman who follows very closely with Dr. Tse of our cardiology clinic. She presented to [facility] in the evening of 10/21/2018 with a complaint of palpitations. The patient states that she has had fleeting palpitations for several years now; however, they are normally very fleeting in nature. This evening, though she was at home in her normal state of health when she again felt her heart racing. She states it felt as though her heart was beating out of her chest very, very rapidly and she became quite concerned and short of breath with this. She is already taking her normal medicines. She gave a time to resolve on its own. Unfortunately, it did not, so she came into the Emergency Department. Upon arrival, she was found to be in atrial fibrillation with rapid ventricular response, but she spontaneously converted on her own thereafter. Her evaluation was otherwise unremarkable; however, given her extensive cardiac history, I recommended admission to telemetry overnight for observation. Overnight, the patient has remained in sinus rhythm and states that she feels well. She has not had any recurrence of her palpitations and denies any chest pain, shortness of breath, lightheadedness, dizziness, or syncope. Again, she has not had any changes to her medical regimen as of late. She remains vigilant about taking her medications and she has not had any excess caffeine or alcohol. Review of telemetry monitoring overnight shows that she has remained in normal sinus rhythm. PAST SURGICAL HISTORY: 1. Coronary artery disease, status post CABG x3 with a IRIZARRY to the LAD, vein graft to the diagonal, and vein graft to OM in 2005. 2. Bone marrow biopsy. 3. Total abdominal hysterectomy. 4. Total splenectomy. 5. Tonsillectomy. MEDICAL ILLNESSES: 1. Hodgkin's lymphoma, status post chemo and radiation. 2. Accelerated atherosclerotic disease likely due to a combination of strong family history and radiation to the chest. 3. Aortic stenosis and regurgitation. 4. History of uterine cancer. FAMILY HISTORY: Noncontributory. SOCIAL HISTORY: Denies any alcohol, tobacco or recreational drug use. She is . She lives at home with her . 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 REVIEW OF SYSTEMS: As per HPI, all other review of systems reviewed and negative at this time. ALLERGIES: 1. MORPHINE AND FENTANYL, BOTH OF WHICH CAUSED HER TO ITCH. 2. PENICILLIN. MEDICATIONS AN OUTPATIENT: 1. Aspirin 81 mg daily. 2. Metoprolol succinate 100 mg b.i.d. 3. Crestor 40 mg daily. 4. Prilosec daily. PHYSICAL EXAMINATION: VITALS: Temperature 36.8, pulse 86, respiratory rate 12, blood pressure 131/81. GENERAL: Awake, alert, oriented x3, no acute distress. HEENT: Normocephalic, atraumatic. Pupils equal, round, and reactive to light and accommodation. Extraocular muscles intact. Anicteric sclerae. Moist mucous membranes. NECK: No JVD, no bruit. CARDIOVASCULAR: Regular. Positive S4. Normal S1 and S2. No S3. Slight 3/6 mid to late systolic ejection murmur greatest at the right sternal border second intercostal space with radiation to bilateral carotids. No rubs. PULMONARY: Clear to auscultation bilaterally. No rales, rhonchi, or wheezing. ABDOMEN: Bowel sounds x4, soft. No rebound, guarding, tenderness. No organomegaly. EXTREMITIES: No clubbing, cyanosis or edema. +2 pedal pulses bilaterally. SKIN: Warm and dry. TEST RESULTS: Initial EKG in the Emergency Department performed at 2146 shows atrial fibrillation with rapid ventricular response. Repeat EKG at 2159 shows normal sinus rhythm. A 2D echocardiogram was read as no significant change compared to previous study of 04/29/2018. Normal LV chamber size and wall thickness, normal LV systolic function, EF 55-60%, no segmental left ventricular wall motion abnormalities were noted, grade 2 diastolic dysfunction. There is moderate degree of posterior mitral annular calcification with extension of the calcification to include the posterior mitral valve leaflet, anterior mitral valve leaflet is mildly calcified. No significant mitral stenosis or regurgitation. Moderately calcified trileaflet aortic valve, mild regurgitation with borderline stenosis by Doppler. IMPRESSION: 1. Newly discovered paroxysmal atrial fibrillation, currently in normal sinus rhythm. 2. Coronary artery disease, stable. 3. Dyslipidemia, controlled. 4. History of Hodgkin's lymphoma, status post chemo and radiation. RECOMMENDATIONS: It was my pleasure to see Mrs. Unger in consultation today. The pathophysiology of atrial fibrillation along with the possible treatments were discussed with the patient at great lengths, and after lengthy discussion, the patient would prefer remain on metoprolol and aspirin for now and to be discharged home. For completeness sake, I will have her wear an outpatient ZIO patch monitor for a few days to make sure that she is not having any asymptomatic bouts of atrial fibrillation and she is already scheduled to see Dr. Tse on the of this month and will keep that scheduled appointment. Otherwise, no other changes will be made and it is okay to discharge the patient to home from a cardiac standpoint.
[2018-10-22] MEDS ORDERED: ROSUVASTATIN CALCIUM 20 MG TAB PO SCH (21:00)
--- NOTE | 2018-10-23 06:09 | Discharge Summary ---
Date of Service October 24, 2018 Admission HPI Per Admitting Provider History obtained from patient and records. Medical history significant for CAD status post CABG, hypertension, hyperlipidemia, aortic stenosis/aortic regurgitation as per records, Hodgkin's lymphoma status post splenectomy, chemotherapy/radiation, past tobacco abuse. Patient seen at PCPs office 3 weeks ago for cough productive of yellow phlegm and chest congestion. Azithromycin and prednisone course prescribed for RLL pneumonia on CXR. Symptoms improved although patient worried about possible effect of steroid on her blood pressure and pulse. 10 years history of intermittent palpitations, short lived, usually lasting 15 seconds and then would go away. Occurrence every 3-4 months. Last episode was last month. Previous outpatient Holter monitor 2009 predominantly sinus rhythm as per records. Last night patient noted persistent chest fluttering symptoms lasting almost an hour. No chest pain, no S OB. Headache from sinus congestion as per patient Patient compliant with home medications. Usual stress at home. At the ER, patient noted to be in rapid A. fib, cardiac rate noted to be 170s. SBP noted to be 210s. Patient converted to NSR after IVF and IV Lopressor administration. 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
--- NOTE | 2018-10-23 09:05 | Discharge Summary ---
Date of Service October 23, 2018 Admission HPI Per Admitting Provider History obtained from patient and records. Medical history significant for CAD status post CABG, hypertension, hyperlipidemia, aortic stenosis/aortic regurgitation as per records, Hodgkin's lymphoma status post splenectomy, chemotherapy/radiation, past tobacco abuse. Patient seen at PCPs office 3 weeks ago for cough productive of yellow phlegm and chest congestion. Azithromycin and prednisone course prescribed for RLL pneumonia on CXR. Symptoms improved although patient worried about possible effect of steroid on her blood pressure and pulse. 10 years history of intermittent palpitations, short lived, usually lasting 15 seconds and then would go away. Occurrence every 3-4 months. Last episode was last month. Previous outpatient Holter monitor 2009 predominantly sinus rhythm as per records. Last night patient noted persistent chest fluttering symptoms lasting almost an hour. No chest pain, no S OB. Headache from sinus congestion as per patient Patient compliant with home medications. Usual stress at home. At the ER, patient noted to be in rapid A. fib, cardiac rate noted to be 170s. SBP noted to be 210s. Patient converted to NSR after IVF and IV Lopressor administration. Principal Diagnosis Atrial fibrillation with RVR-reverted to sinus rhythm Discharge Exam Constitutional WD/WN, vitals as above Eyes PERRL, conjunctivae normal, anicteric sclerae ENMT external ear and nose normal, oropharynx normal Neck trachea midline, no thyromegaly Respiratory normal respiratory effort, lungs clear to auscultation Cardiovascular Rate/Rhythm: regular rate and regular rhythm Heart Sounds: normal S1, normal S2 and + murmur (2/6 ESM over precordium) Gastrointestinal (Abdomen) normal bowel sounds, soft, nontender, no hepatosplenomegaly Neurologic PERRL, EOMI, accommodation nl, no face palsy, no dysarthria Discharge Data Allergies Allergy/AdvReac Type Severity Reaction Status Date / Time Penicillins Allergy Severe SOB, HIVES Verified 10/22/18 01:19 fentanyl Allergy Intermediate ITCHY HIVES Verified 10/22/18 01:19 morphine Allergy Intermediate ITCHY HIVES Verified 10/22/18 01:19 adhesive Allergy Mild LOCAL Verified 10/22/18 01:19 HIVE/RASH NITRO AdvReac Intermediate profuse Uncoded 10/22/18 01:19 vomiting increases heart rate Consultations 10/21/18 23:12 ED Decision to Admit Stat 10/22/18 03:07 Consult Cardiology Routine Hospital Course (1) Paroxysmal A-fib: New onset ? Duration unknown given intermittent palpitation episodes over the last 10 years Possibly related to uncontrolled BP from stress, recent antibiotic /steroid Rx for pneumonia, hypokalemia, anxiety Patient currently NSR. CAD status post CABG hx aortic stenosis/aortic regurgitation as per records Hodgkin's lymphoma status post splenectomy, chemotherapy, radiation Hyperglycemia likely steroid-induced rule out DM past tobacco abuse. OBS Medical telemetry Increase maintenance Toprol XL from 100 mg twice daily to 125 mg BID for now . Replace potassium Anxiolytic as needed TTE, Cardiology consult RE PAF IV heparin for thromboembolic prophylaxis for PAF of undetermined duration until patient seen by Cardiology Check hemoglobin A1c DVT prophylaxis. Heparin Full code Total Time Total Time Spent Total Time Spent (In Minutes): 35 minutes Total Time Includes: Examination of the Patient, Discharge Planning, Medication Reconciliation and Communication With Other Providers Discharge Plan Discharge Items Patient Disposition: Home - Self-Care Reason For Visit: PAF Discharge Diagnosis: Atrial fibrillation with RVR-reverted to sinus rhythm Condition: Good Discharge Goals: Decrease discomfort, Improve function and Increase independence Activity: Resume your previous activity Non-emergency contact: Primary Care Provider Call non-emergency contact if: you have any medication questions and your symptoms worsen Follow-up/Referrals: Devonte De Leon MD [Primary Care Provider] - 10/25/18 12:35 pm (Please keep appointment with the medical research tech) Diet: Heart Healthy Addtl Provider Instructions: Please get the Holter monitor on the way home from Dr. Ivory office Prescriptions: Continued metoprolol succinate 200 mg Tablet Extended Release 24 Hr 100 mg PO BID RF: 0 aspirin [Aspir-81] 81 mg Tablet,Delayed Release (Dr/Ec) 81 mg PO DAILY RF: 0 ibuprofen [Advil] 200 mg Tablet 600 mg PO DIRECTED PRN (Reason: Pain) RF: 0 omeprazole 20 mg Capsule,Delayed Release(Dr/Ec) 20 mg PO DAILY RF: 0 rosuvastatin [Crestor] 40 mg Tablet 40 mg PO HS RF: 0 Stand-Alone Forms: Mung[facility]/Other Patient Handouts: Prediabetes, Diabetes Meal Planning Discharge Orders: Discharge Order (Routine); Ordered 10/22/18 Ordered By: Eugenio Lynch Admission Data Admit Date/Time: 10/22/18 01:54 Attending Provider: Eugenio Lynch Admit Provider: Hilario Aparicio Primary Care Provider: Devonte De Leon Other Providers: Hilario Aparicio ; Wilfred Ivory ; Kwesi Tse ; Matthias Helm ; Talha Mendez ; Robin Ortiz ; Asim Prado ; Anastasia Walker ; Isadora Conti Service: Telemetry Medical Other Interventions: Discharge Summary Assessment (RN) Last Done: 10/22/18 13:11 DC Date/Time DO NOT enter until pt leaves facility: 10/22/18 13:42
== END 2018-10-22 13:42 | disposition home or self-care (01) ==
LOC: 2N 21:22 → ED 21:22 → SUATTDRO 10-22 01:54 → 2N 10-22 02:30

== ENCOUNTER 2020-02-29 21:49 | Observation (INO) ==
[2020-02-29 22:34] LABS: Hematocrit (blood only) 43.7 % (37-47); Hemoglobin 14.9 g/dL (12.0-16.0); Mean Corpuscular Hemoglobin 32.8 pg (25-34); Mean Corpuscular Hgb Conc 34.1 g/dL (32-36); Mean Corpuscular Volume 96.3 fL (80-100); Mean Platelet Volume 11.4 fL (7.4-10.4); Platelet Count 411 K/uL (130-400); RDW Coefficient of Variation 13.5 % (11.5-14.5); RDW Standard Deviation 47.8 fL (36.4-46.3); Red Blood Count 4.54 M/uL (4.2-5.4); White Blood Count 18.53 K/uL (4.8-10.8)
[2020-02-29] MEDS ORDERED: cloNIDine HCL 0.1 MG TAB PO ONE (22:42)
[2020-02-29 22:48] LABS: Alanine Aminotransferase 41 U/L (12-78); Aspartate Aminotransferase 38 U/L (15-37); BUN Creatinine Ratio 12.4 (10-20); Blood Urea Nitrogen 13 mg/dl (7-18); Calcium 9.7 mg/dl (8.5-10.1); Carbon Dioxide 27 mmol/L (21-32); Chloride 106 mmol/L (98-107); Creatinine Clr Calc Pharmacy 65.6 ml/min; Est GFR (African American) 70.6; Est GFR (Non-African American) 60.9; Glucose 111 mg/dl (70-99); Potassium 3.8 mmol/L (3.5-5.1); Sodium 141 mmol/L (136-145)
[2020-02-29 22:50] LABS: Basophils # (auto) 0.09 K/uL (0-0.2); Basophils % (auto) 0.5 %; Eosinophils # (auto) 0.56 K/uL (0-0.5); Immature Granulocytes # (auto) 0.04 K/uL (0.00-0.02); Immature Granulocytes % (auto) 0.2 %; Lymphocytes # (auto) 8.03 K/uL (1.2-3.4); Lymphocytes % (auto) 43.3 %; Monocytes # (auto) 2.51 K/uL (0.11-0.59); Monocytes % (auto) 13.5 %; Neutrophils % (auto) 39.5 %; RBC Morphology Unremarkable
[2020-02-29 22:59] LABS: Alkaline Phosphatase 110 U/L (45-117); Bilirubin,Total 0.4 mg/dl (0.2-1); Troponin I < 0.015 ng/ml (0-0.045)
--- NOTE | 2020-03-01 00:10 | Emergency Department Note ---
History of Present Illness General Chief complaint: Hypertension Stated complaint: HYPERTENSION, 200/108 Time Seen by Provider: 02/29/20 21:57 Source: patient Mode of arrival: ambulatory Limitations: no limitations History of Present Illness This patient is a 49-year-old female who presents to the emergency department for evaluation of hypertension. The patient reports that over the past 1 week, she has been having episodes where she feels flushed and clammy and when she checks her blood pressure it has been elevated. She has had these episodes in the past, but states they are usually very brief and infrequent. She states that she has had 3 of these episodes in the past week and they have lasted longer than normal. She states that she becomes very flushed and clammy. She does not have chest pain with these episodes, but does report she had some chest pressure the week before the symptoms started. She states that these episodes have been lasting at least 1 hour. She reports that she developed symptoms tonight 2 hours prior to arrival. When she checked her blood pressure it was very elevated. She took her metoprolol and has had no improvement. Patient reports a posterior headache at this time and rates her discomfort a 5/10. The patient does report that she was recently started on levothyroxine and has taken this for the past 3 days. Patient reports a history of triple bypass at age 36. She has a history of Hodgkin's lymphoma and cervical cancer. She had one episode of atrial fibrillation in the past. She does not take any anticoagulants. She does have a strong family history of cardiac disease, although her prior UT was contributed to her radiation. Patient follows locally with Dr. Tse. She had a stress test last year and believes she has had an echocardiogram within the past year. Home Medications Home Medications Medication Instructions Recorded Confirmed Type aspirin [Aspir-81] 81 mg PO DAILY 10/22/18 02/29/20 History ibuprofen [Advil] 600 mg PO DIRECTED PRN 10/22/18 02/29/20 History metoprolol succinate 100 mg PO BID 10/22/18 02/29/20 History omeprazole 20 mg PO DAILY 10/22/18 02/29/20 History rosuvastatin [Crestor] 40 mg PO HS 10/22/18 02/29/20 History levothyroxine 25 mcg PO DAILY 02/29/20 02/29/20 History Allergies Allergy/AdvReac Type Severity Reaction Status Date / Time Penicillins Allergy Severe SOB, HIVES Verified 02/29/20 23:13 fentanyl Allergy Intermediate ITCHY HIVES Verified 02/29/20 23:13 morphine Allergy Intermediate ITCHY HIVES Verified 02/29/20 23:13 adhesive Allergy Mild LOCAL Verified 02/29/20 23:13 HIVE/RASH NITRO AdvReac Intermediate profuse Uncoded 02/29/20 23:13 vomiting increases heart rate Past Med/Surg History Medical History (Updated 03/01/20 @ 08:11 by Yary Trevino PA-C) CAD (coronary artery disease) Hodgkin disease (Resolved) Migraine (Acute) Paroxysmal A-fib Surgical History History of hysterectomy (Resolved) History of splenectomy (Resolved) Hx of CABG (Resolved) Social History Preferred Language: Palestinian Communication Ability: 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 Beliefs That Will Affect Care: None Current Living Situation: Spouse Other Information That Helps Us Care for You: No Feels Safe at Home: Yes Safety Concerns: Feels Safe At This Time Smoking Status: Former smoker Tobacco Type: cigarettes ; Do You Dip or Chew Tobacco: No ; Smoking End Date: 1998 ; Second Hand Exposure: No ; Tobacco Cessation Education Requested by Patient: No Hx Alcohol Use: No Hx Substance Use: No Review of Systems A total of 10 systems reviewed and were otherwise negative Physical Exam Vital Signs Vital Signs - 24 hr 02/29/20 21:51 02/29/20 22:02 02/29/20 22:05 Temperature 36.8 C Temperature Source Oral Pulse Rate 105 H 112 H 104 H Pulse Rate from SpO2 Sensor 104 H Respiratory Rate 20 16 20 Respiratory Effort / Characteristics Non-Labored Spontaneous Respiratory Depth Normal Blood Pressure 198/103 H 183/107 H Blood Pressure Mean 134 119 Pulse Oximetry 100 97 Oxygen Delivery Method Room Air Room Air Room Air Sepsis New/Unexplained Change in Mental Status N/A Sepsis Action Taken by Nursing No Action Required 02/29/20 22:10 02/29/20 22:20 02/29/20 22:30 Temperature Temperature Source Pulse Rate 91 H 89 90 Pulse Rate from SpO2 Sensor 92 H 88 90 Respiratory Rate 16 14 13 Respiratory Effort / Characteristics Respiratory Depth Blood Pressure Blood Pressure Mean Pulse Oximetry 98 98 98 Oxygen Delivery Method Room Air Room Air Room Air Sepsis New/Unexplained Change in Mental Status Sepsis Action Taken by Nursing 02/29/20 22:40 02/29/20 22:42 02/29/20 22:50 Temperature Temperature Source Pulse Rate 84 89 94 H Pulse Rate from SpO2 Sensor 83 89 95 H Respiratory Rate 13 12 12 Respiratory Effort / Characteristics Respiratory Depth Blood Pressure 170/100 H Blood Pressure Mean 127 Pulse Oximetry 96 97 98 Oxygen Delivery Method Room Air Room Air Room Air Sepsis New/Unexplained Change in Mental Status Sepsis Action Taken by Nursing 02/29/20 23:00 02/29/20 23:47 03/01/20 00:03 Temperature Temperature Source Pulse Rate 91 H 95 H 86 Pulse Rate from SpO2 Sensor 91 H 95 H 86 Respiratory Rate 12 20 13 Respiratory Effort / Characteristics Respiratory Depth Blood Pressure 186/88 H 155/85 H Blood Pressure Mean 119 100 Pulse Oximetry 99 99 97 Oxygen Delivery Method Room Air Sepsis New/Unexplained Change in Mental Status Sepsis Action Taken by Nursing 03/01/20 00:22 Temperature Temperature Source Pulse Rate 87 Pulse Rate from SpO2 Sensor 87 Respiratory Rate 14 Respiratory Effort / Characteristics Respiratory Depth Blood Pressure 154/88 H Blood Pressure Mean 114 Pulse Oximetry 98 Oxygen Delivery Method Sepsis New/Unexplained Change in Mental Status Sepsis Action Taken by Nursing VITALS: Vitals are noted on the nurse's note and reviewed by myself. GENERAL: This is a 49-year-old female, somewhat anxious., well-developed well- nourished. SKIN: The skin was without rashes. EARS: External auditory canals clear, tympanic membranes pearly alejo without erythema or effusion bilaterally. EYES: Pupils equal round and reactive to light and accommodation. NOSE: Patent, turbinates without inflammation or discharge. MOUTH: Mucous membranes moist. Tonsils are not enlarged. Pharynx without erythema or exudate. NECK: Supple without nuchal rigidity. No lymphadenopathy. HEART: Regular rate and rhythm without murmurs gallops or rubs. LUNGS: Clear to auscultation bilaterally without wheezes, rales or rhonchi. ABDOMEN: Positive bowel sounds x 4. Soft, nontender to palpation. MUSCULOSKELETAL: Full range of motion throughout. Strength 5/5 throughout. NEURO: Patient was alert and oriented to person place and time. No focal neurological deficits. Course Consultations Consultation #1: Dr. Markus Lopez hospitalist Administered Medications Lactated Ringer's (Lr) 1,000 mls @ 50 mls/hr IV .Q20H ONE Stop: 03/01/20 21:54 Last Admin: 03/01/20 02:25 Dose: 50 mls/hr Documented by: [id number] Levothyroxine Sodium (Synthroid) 25 mcg PO DAILYBB ROSELIA Stop: 03/31/20 06:29 Last Admin: 03/01/20 06:23 Dose: 25 mcg Documented by: [id number] Discontinued Medications Clonidine HCl (Catapres) 0.2 mg PO NOW ONE Stop: 02/29/20 22:43 Last Admin: 02/29/20 23:11 Dose: 0.2 mg Documented by: [id number] Lisinopril (Zestril) 2.5 mg PO ONE ONE Stop: 03/01/20 01:15 Last Admin: 03/01/20 01:34 Dose: 2.5 mg Documented by: [id number] Potassium Chloride (Klor-Con M20) 20 meq PO NOW STA Stop: 03/01/20 01:56 Last Admin: 03/01/20 02:25 Dose: 20 meq Documented by: [id number] Medical Decision Making Differential Diagnosis Differential diagnosis includes acute coronary syndrome, pulmonary embolism, pneumothorax, pericarditis, myocarditis, endocarditis, anxiety, musculoskeletal pain, GERD, costochondritis, pneumonia, among others. Medical Records Attestation: I reviewed the patient's medical records. Home Medications Current Medication List: was personally reviewed by me Laboratory Data Attestation: I reviewed the patient's lab results. Result diagrams: 03/01/20 05:52 03/01/20 05:52 Lab Results 02/29/20 02/29/20 02/29/20 Range/Units 22:08 22:08 22:08 WBC 18.53 H (4.8-10.8) K/uL RBC 4.54 (4.2-5.4) M/uL Hgb 14.9 (12.0-16.0) g/dL Hct 43.7 (37-47) % MCV 96.3 (80-100) fL MCH 32.8 (25-34) pg MCHC 34.1 (32-36) g/dL RDW Std Deviation 47.8 H (36.4-46.3) fL RDW Coeff of Prosper 13.5 (11.5-14.5) % Plt Count 411 H (130-400) K/uL MPV 11.4 H (7.4-10.4) fL Immature Gran % (Auto) 0.2 % Neut % (Auto) 39.5 % Lymph % (Auto) 43.3 % [place] % (Auto) 13.5 % Eos % (Auto) 3.0 % Baso % (Auto) 0.5 % Neut # (Auto) 7.30 H (1.4-6.5) K/uL Lymph # (Auto) 8.03 H (1.2-3.4) K/uL [place] # (Auto) 2.51 H (0.11-0.59) K/uL Eos # (Auto) 0.56 H (0-0.5) K/uL Baso # (Auto) 0.09 (0-0.2) K/uL Immature Gran # (Auto) 0.04 H (0.00-0.02) K/uL RBC Morphology Unremarkable APTT (21.0-31.0) Seconds PTT Ratio D-Dimer (0-500) ug/L FEU Sodium 141 (136-145) mmol/L Potassium 3.8 (3.5-5.1) mmol/L Chloride 106 (98-107) mmol/L Carbon Dioxide 27 (21-32) mmol/L Anion Gap 8.0 (3-11) BUN 13 (7-18) mg/dl Creatinine 1.07 (0.6-1.2) mg/dl Est Cr Clr Drug Dosing 65.6 ml/min Est GFR ( Amer) 70.6 Est GFR (Non-Af Amer) 60.9 BUN/Creatinine Ratio 12.4 (10-20) Glucose 111 H (70-99) mg/dl Calcium 9.7 (8.5-10.1) mg/dl Magnesium 2.1 (1.8-2.4) mg/dl Total Bilirubin 0.4 (0.2-1) mg/dl AST 38 H (15-37) U/L ALT 41 (12-78) U/L Alkaline Phosphatase 110 (45-117) U/L Troponin I < 0.015 (0-0.045) ng/ml Total Protein 8.0 (6.4-8.2) gm/dl Albumin 4.0 (3.4-5.0) gm/dl Globulin 4.0 (2.5-4.0) gm/dl Albumin/Globulin Ratio 1.0 (0.9-2) Procalcitonin 0.06 (0-0.5) ng/ml TSH 11.600 H (0.300-4.500) uIu/ml Specimen Hemolysis 02/29/20 02/29/20 Range/Units 22:08 22:08 WBC (4.8-10.8) K/uL RBC (4.2-5.4) M/uL Hgb (12.0-16.0) g/dL Hct (37-47) % MCV (80-100) fL MCH (25-34) pg MCHC (32-36) g/dL RDW Std Deviation (36.4-46.3) fL RDW Coeff of Prosper (11.5-14.5) % Plt Count (130-400) K/uL MPV (7.4-10.4) fL Immature Gran % (Auto) % Neut % (Auto) % Lymph % (Auto) % [place] % (Auto) % Eos % (Auto) % Baso % (Auto) % Neut # (Auto) (1.4-6.5) K/uL Lymph # (Auto) (1.2-3.4) K/uL [place] # (Auto) (0.11-0.59) K/uL Eos # (Auto) (0-0.5) K/uL Baso # (Auto) (0-0.2) K/uL Immature Gran # (Auto) (0.00-0.02) K/uL RBC Morphology APTT 29.7 (21.0-31.0) Seconds PTT Ratio 1.1 D-Dimer 370 (0-500) ug/L FEU Sodium (136-145) mmol/L Potassium (3.5-5.1) mmol/L Chloride (98-107) mmol/L Carbon Dioxide (21-32) mmol/L Anion Gap (3-11) BUN (7-18) mg/dl Creatinine (0.6-1.2) mg/dl Est Cr Clr Drug Dosing ml/min Est GFR ( Amer) Est GFR (Non-Af Amer) BUN/Creatinine Ratio (10-20) Glucose (70-99) mg/dl Calcium (8.5-10.1) mg/dl Magnesium (1.8-2.4) mg/dl Total Bilirubin (0.2-1) mg/dl AST (15-37) U/L ALT (12-78) U/L Alkaline Phosphatase (45-117) U/L Troponin I (0-0.045) ng/ml Total Protein (6.4-8.2) gm/dl Albumin (3.4-5.0) gm/dl Globulin (2.5-4.0) gm/dl Albumin/Globulin Ratio (0.9-2) Procalcitonin (0-0.5) ng/ml TSH (0.300-4.500) uIu/ml Specimen Hemolysis Imaging Data Attestation: I personally reviewed and interpreted this imaging study as follows: My Impression: CHEST 1 VIEW: Median sternotomy wires noted. No pulmonary consolidation or pneumothorax. No evidence of failure. Radiologist's Impression: CT HEAD: No acute findings. Negative head CT. Radiologist: Bartolo Walker MD ECG Data Attestation: I personally reviewed and interpreted this ECG as follows: Indication: + chest pain Rate (beats per minute): 97 Rhythm: + normal sinus ECG Intervals/blocks: + Normal QRS ECG [place]: + Left axis deviation ECG ST segments: + Nonspecific ST abnormalities Change: no significant change Blood Pressure Blood Pressure Findings: Normal blood pressure Blood Pressure Disposition: did not require urgent referral MDM Narrative The patient is a 49-year-old female with past medical history of UT and three- vessel CABG who presents today complaining of episodes of diaphoresis, flushing and hypertension. Patient does report that she had unusual symptoms with her previous UT and remembers having fatigue and flushing. Labs revealed a leukocytosis of 18,000, which is elevated, however patient does appear to have an elevated white blood cell count at baseline. TSH elevated 11.6. Troponin is not elevated. Chest x-ray unremarkable. CT scan of the head was performed and was unremarkable. Patient treated with clonidine with mild improvement of her blood pressure. Patient was still feeling symptomatic. Given the patient's extensive history and symptoms at this time, I do feel she would benefit from further evaluation by the hospitalist. Patient was agreeable with the plan of care. Continuous monitoring engineer: Order was placed for continuous monitoring engineer. Patient was placed on the monitoring engineer. Patient was noted to be in normal sinus rhythm at an initial rate of 112 bpm. Impression & Plan Hypertensive urgency Discharge Plan Visit Data *Final* Discharge Date/Time: 03/01/20 01:46 Chief Complaint: Hypertension Stated Complaint: HYPERTENSION, 200/108 ED Provider: Jason Nayak ED Midlevel Provider: Yary Trevino Discharge Problem: Hypertensive urgency Patient Disposition: Admitted As Inpatient Discharge Instructions Interventions: ED Discharge Assessment Last Done: 03/01/20 01:46
[2020-03-01 00:20] LABS: Magnesium 2.1 mg/dl (1.8-2.4)
[2020-03-01 01:09] LABS: Partial Thromboplastin Ratio 1.1; Partial Thromboplastin Time 29.7 Seconds (21.0-31.0)
[2020-03-01] MEDS ORDERED: lisinopriL 5 MG TAB PO ONE (01:14)
--- NOTE | 2020-03-01 01:15 | History & Physical Report ---
Date of Service March 01, 2020 Assessment & Plan (1) Heart palpitations: Multifactorial : Uncontrolled BP Anxiety ? Menopause symptoms contributory Rule out recurrent AF hx CAD status post CABG hx aortic stenosis/aortic regurgitation as per records Hodgkin's lymphoma status post splenectomy, chemotherapy, radiation hx cervical cancer status post surgery Hypothyroidism, recently started on thyroid replacement therapy Hyperglycemia possible prediabetes, hemoglobin A1c of 6.4 last October 2018 past tobacco abuse. OBS PCU Initiate lisinopril Continue current Toprol-XL BID Rx Anxiolytic PRN Initiate SSRI if patient agreeable for possible menopause symptoms Cardiology consult RE palpitations, uncontrolled HTN Update hemoglobin A1c DVT prophylaxis. DVT prophylaxis with Lovenox subcu Full code Text document was generated using [employer] voice recognition software. It may contain grammatical or spelling errors. Kindly contact undersigned for clarification of any documentation item in question. History of Present Illness Chief Complaint: Palpitations Primary Care Provider: Devonte De Leon MD History obtained from patient and records. Medical history significant for CAD status post CABG, PAF, hypertension, hyperlipidemia, aortic stenosis/aortic regurgitation as per records, Hodgkin's lymphoma status post splenectomy/chemotherapy/radiation, cervical cancer status post surgery, hypothyroidism, past tobacco abuse. Last confinement October 2018 for PAF. Spontaneous conversion to NSR. 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 The last week, patient had intermittent episodes (about 3 as per patient) of palpitations with shortness of breath, achy headache, clamminess lasting for about an hour, occurring even at rest. Blood pressure during episodes 170s. Patient compliant with medications. Denies unusual stress/inordinate caffeine intake. No cough/flulike symptoms/abdominal pain, dysuria symptoms. Patient initiated levothyroxine Rx for hypothyroidism a few days ago. Last night patient had recurrence of episode. SBP at home noted to be 200s. Patient brought by to ER. Patient currently comfortable. Medical History as above [facility] Gynecology visit last December 2019. Worsening menopause symptoms increased anxiety, sleeplessness, night sweats and hot flashes symptoms as per provider note. Consideration for SSRI Rx (patient not interested in hormonal treatment) as per note. 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 Allergies Allergy/AdvReac Type Severity Reaction Status Date / Time Penicillins Allergy Severe SOB, HIVES Verified 02/29/20 23:13 fentanyl Allergy Intermediate ITCHY HIVES Verified 02/29/20 23:13 morphine Allergy Intermediate ITCHY HIVES Verified 02/29/20 23:13 adhesive Allergy Mild LOCAL Verified 02/29/20 23:13 HIVE/RASH NITRO AdvReac Intermediate profuse Uncoded 02/29/20 23:13 vomiting increases heart rate Home Medications Home Medications Medication Instructions Recorded Confirmed Type aspirin [Aspir-81] 81 mg PO DAILY 10/22/18 02/29/20 History ibuprofen [Advil] 600 mg PO DIRECTED PRN 10/22/18 02/29/20 History metoprolol succinate 100 mg PO BID 10/22/18 02/29/20 History omeprazole 20 mg PO DAILY 10/22/18 02/29/20 History rosuvastatin [Crestor] 40 mg PO HS 10/22/18 02/29/20 History levothyroxine 25 mcg PO DAILY 02/29/20 02/29/20 History Past Med/Surg History Surgical History History of hysterectomy (Resolved) History of splenectomy (Resolved) Hx of CABG (Resolved) Social History Preferred Language: Indonesian Communication Ability: Effective 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 Beliefs That Will Affect Care: None Current Living Situation: Spouse Other Information That Helps Us Care for You: No Feels Safe at Home: Yes Safety Concerns: Feels Safe At This Time Smoking Status: Former smoker Tobacco Type: cigarettes ; Do You Dip or Chew Tobacco: No ; Smoking End Date: 1998 ; Second Hand Exposure: No ; Tobacco Cessation Education Requested by Patient: No Hx Alcohol Use: No Hx Substance Use: No Review of Systems Review of Systems: As per HPI, all 10 systems reviewed, all other ROS negative Physical Exam Physical Exam: GENERAL: Comfortable, slightly anxious, obese, no respiratory distress SKIN: Normal color, warm HEENT: Bespectacled, [place] palpebral conjunctivae, no ptosis, dry buccal mucosa NECK : Supple, no tenderness CHEST : CTA, no tenderness HEART : RRR, systolic murmur ABDOMEN: Some distention, nontender EXTREMITIES : Minimal LE swelling, no LE tenderness, no other conspicuous deformities noted NEUROLOGIC : Coherent, no facial asymmetry, no other gross focality Results & Data Results & Data ([facility]) Vital Signs (Past 12 Hours) Vital Signs Temp Pulse Resp BP Pulse Ox 03/01/20 00:22 87 14 154/88 H 98 03/01/20 00:03 86 13 155/85 H 97 02/29/20 23:47 95 H 20 186/88 H 99 02/29/20 23:00 91 H 12 99 02/29/20 22:50 94 H 12 98 02/29/20 22:42 89 12 170/100 H 97 02/29/20 22:40 84 13 96 02/29/20 22:30 90 13 98 02/29/20 22:20 89 14 98 02/29/20 22:10 91 H 16 98 02/29/20 22:05 104 H 20 183/107 H 97 02/29/20 22:02 112 H 16 02/29/20 21:51 36.8 C 105 H 20 198/103 H 100 Laboratory Results Laboratory Results WBC 18.53 K/uL (4.8-10.8) H 02/29/20 22:08 RBC 4.54 M/uL (4.2-5.4) 02/29/20 22:08 Hgb 14.9 g/dL (12.0-16.0) 02/29/20 22:08 Hct 43.7 % (37-47) 02/29/20 22:08 MCV 96.3 fL (80-100) 02/29/20 22:08 MCH 32.8 pg (25-34) 02/29/20 22:08 MCHC 34.1 g/dL (32-36) 02/29/20 22:08 RDW Std Deviation 47.8 fL (36.4-46.3) H 02/29/20 22:08 RDW Coeff of Prosper 13.5 % (11.5-14.5) 02/29/20 22:08 Plt Count 411 K/uL (130-400) H 02/29/20 22:08 MPV 11.4 fL (7.4-10.4) H 02/29/20 22:08 Immature Gran % (Auto) 0.2 % 02/29/20 22:08 Neut % (Auto) 39.5 % 02/29/20 22:08 Lymph % (Auto) 43.3 % 02/29/20 22:08 [place] % (Auto) 13.5 % 02/29/20 22:08 Eos % (Auto) 3.0 % 02/29/20 22:08 Baso % (Auto) 0.5 % 02/29/20 22:08 Neut # (Auto) 7.30 K/uL (1.4-6.5) H 02/29/20 22:08 Lymph # (Auto) 8.03 K/uL (1.2-3.4) H 02/29/20 22:08 [place] # (Auto) 2.51 K/uL (0.11-0.59) H 02/29/20 22:08 Eos # (Auto) 0.56 K/uL (0-0.5) H 02/29/20 22:08 Baso # (Auto) 0.09 K/uL (0-0.2) 02/29/20 22:08 Immature Gran # (Auto) 0.04 K/uL (0.00-0.02) H 02/29/20 22:08 RBC Morphology Unremarkable 02/29/20 22:08 APTT 29.7 Seconds (21.0-31.0) 02/29/20 22:08 PTT Ratio 1.1 02/29/20 22:08 Sodium 141 mmol/L (136-145) 02/29/20 22:08 Potassium 3.8 mmol/L (3.5-5.1) 02/29/20 22:08 Chloride 106 mmol/L (98-107) 02/29/20 22:08 Carbon Dioxide 27 mmol/L (21-32) 02/29/20 22:08 Anion Gap 8.0 (3-11) 02/29/20 22:08 BUN 13 mg/dl (7-18) 02/29/20 22:08 Creatinine 1.07 mg/dl (0.6-1.2) 02/29/20 22:08 Est Cr Clr Drug Dosing 65.6 ml/min 02/29/20 22:08 Est GFR ( Amer) 70.6 02/29/20 22:08 Est GFR (Non-Af Amer) 60.9 02/29/20 22:08 BUN/Creatinine Ratio 12.4 (10-20) 02/29/20 22:08 Glucose 111 mg/dl (70-99) H 02/29/20 22:08 Calcium 9.7 mg/dl (8.5-10.1) 02/29/20 22:08 Magnesium 2.1 mg/dl (1.8-2.4) 02/29/20 22:08 Total Bilirubin 0.4 mg/dl (0.2-1) 02/29/20 22:08 AST 38 U/L (15-37) H 02/29/20 22:08 ALT 41 U/L (12-78) 02/29/20 22:08 Alkaline Phosphatase 110 U/L (45-117) 02/29/20 22:08 Troponin I < 0.015 ng/ml (0-0.045) 02/29/20 22:08 Total Protein 8.0 gm/dl (6.4-8.2) 02/29/20 22:08 Albumin 4.0 gm/dl (3.4-5.0) 02/29/20 22:08 Globulin 4.0 gm/dl (2.5-4.0) 02/29/20 22:08 Albumin/Globulin Ratio 1.0 (0.9-2) 02/29/20 22:08 Procalcitonin 0.06 ng/ml (0-0.5) 02/29/20 22:08 TSH 11.600 uIu/ml (0.300-4.500) H 02/29/20 22:08 Specimen Hemolysis 02/29/20 22:[address] head initial read Negative head CT Chest x-ray as per my interpretation sternal wires, no congestion EKG as per my interpretation : Rate 95, NSR, LAD, LAFB, ST depression lateral leads
[2020-03-01 01:43] LABS: D Dimer 370 ug/L FEU (0-500)
[2020-03-01] MEDS ORDERED: TRAMADOL HCL 50 MG TABLET PO PRN (01:55)
[2020-03-01] MEDS ORDERED: PROMETHAZINE HCL 12.5 MG in SODIUM CHLORIDE 0.9% 50 ML IV PRN (01:55)
[2020-03-01] MEDS ORDERED: POTASSIUM CHLORIDE 20 MEQ TABCR PO STA (01:55)
[2020-03-01] MEDS ORDERED: LACTATED RINGER'S 1,000 ML IV ONE (01:55)
[2020-03-01] MEDS ORDERED: LORazepam 0.5 MG/1 ML VIAL IV PRN (01:55)
[2020-03-01] MEDS ORDERED: NITROGLYCERIN SL 0.4 MG/TAB TAB SL PRN (01:55)
[2020-03-01] MEDS ORDERED: ACETAMINOPHEN 325 MG TAB PO PRN (01:55)
[2020-03-01] MEDS: LEVOTHYROXINE SODIUM 25 MCG TABLET PO SCH ×2 (05:58→06:23)
[2020-03-01 06:35] LABS: Hematocrit (blood only) 44.7 % (37-47); Hemoglobin 14.5 g/dL (12.0-16.0); Mean Corpuscular Hemoglobin 31.3 pg (25-34); Mean Corpuscular Hgb Conc 32.4 g/dL (32-36); Mean Corpuscular Volume 96.3 fL (80-100); Platelet Count 408 K/uL (130-400); RDW Coefficient of Variation 13.8 % (11.5-14.5); RDW Standard Deviation 48.6 fL (36.4-46.3); Red Blood Count 4.64 M/uL (4.2-5.4); White Blood Count 13.69 K/uL (4.8-10.8)
--- NOTE | 2020-03-01 06:48 | CT Scan Report ---
CT head/brain wo con CLINICAL HISTORY: 49 years-old Female with headache, hypertension. Acute headache with hypertension TECHNIQUE: Multiple axial CT images of the head were obtained without contrast. A dose lowering tech nique was utilized adhering to the principles of ALARA. CT DOSE: 537.48 mGy.cm COMPARISON: Head CT 06/15/2013 FINDINGS: No acute intracranial hemorrhage, midline shift, intracranial mass, hydrocephalus, territorial ischem ia or abnormal extra-axial collection. The calvarium is intact. 8 mm cutaneous lesion of the left parietal scalp near the vertex. The parana sarah sinuses, mastoid air cells, and middle ear cavities are clear. IMPRESSION: No acute intracranial abnormality. ACT 112: Negative or not required by law. The above report was generated using voice recognition software. It may contain grammatical, syntax o r spelling errors. Electronically signed by: Jan Mora M.D. 03/01/2020 6:47 AM
[2020-03-01 07:15] LABS: BUN Creatinine Ratio 19.8 (10-20); Calcium 9.1 mg/dl (8.5-10.1); Creatinine Clr Calc Pharmacy 101.5 ml/min; Est GFR (African American) 118.5; Est GFR (Non-African American) 102.2; Potassium 3.9 mmol/L (3.5-5.1)
--- NOTE | 2020-03-01 07:37 | XRay Report ---
XR chest 1V portable CLINICAL HISTORY: hypertension COMPARISON STUDY: Chest radiograph August 21, 2008. FINDINGS: Lung volumes are normal. Lungs are clear. There is no pneumothorax or pleural effusion. Car diac size is normal. Mediastinal contours are normal. There is no evidence for pulmonary edema. Note is made of median sternotomy wires and mediastinal surgical clips. IMPRESSION: No acute cardiopulmonary findings. ACT 112: Negative or not required by law. Electronically signed by: Blaine Bradley M.D. 03/01/2020 7:36 AM
[2020-03-01 07:54] LABS: Basophils # (auto) 0.07 K/uL (0-0.2); Basophils % (auto) 0.5 %; Eosinophils # (auto) 0.32 K/uL (0-0.5); Eosinophils % (auto) 2.3 %; Howell-Jolly Bodies Occasional; Immature Granulocytes # (auto) 0.02 K/uL (0.00-0.02); Immature Granulocytes % (auto) 0.1 %; Lymphocytes # (auto) 5.57 K/uL (1.2-3.4); Lymphocytes % (auto) 40.7 %; Monocytes # (auto) 1.77 K/uL (0.11-0.59); Monocytes % (auto) 12.9 %; Neutrophils # (auto) 5.94 K/uL (1.4-6.5); Neutrophils % (auto) 43.5 %
[2020-03-01] MEDS: PANTOprazole 40 MG TAB PO SCH (08:19)
[2020-03-01] MEDS: ENOXAPARIN INJ 40 MG/0.4 ML SYR SQ SCH (08:19)
[2020-03-01] MEDS: METOPROLOL SUCC 50MG EXT REL TAB PO SCH ×2 (08:20→20:02)
[2020-03-01] MEDS: ASPIRIN 81 MG ECTAB PO SCH (08:20)
[2020-03-01 09:16] LABS: Estimated Average Glucose 123 mg/dl; Hemoglobin A1C 5.9 % (4.5-5.6)
--- NOTE | 2020-03-01 12:43 | Hospitalist Progress Note ---
Date of Service March 01, 2020 Assessment & Plan (1) Heart palpitations: Possible related to anxiety, hormonal changes like menopause EKG on admission showed NSR Troponin on admission negative Telemonitor showed no arrhythmia Last Echo showed normal LV chamber size and wall thickness. Normal LV systolic function without regional wall motion abnormalities. Calculated LV ejection Fraction = 64%. Grade 2 diastolic dysfunction. Moderately calcified, trileaflet aortic valve with mild aortic stenosis and mild aortic regurgitation. Moderate mitral annular calcifications with mildly calcified mitral leaflets without stenosis or regurgitation. Will need a repeat ECHO Cardiology consulted - waiting for input Continue monitor in tele Hypertension BP 193/103 on admission Starting on Lisinopril 2.5 mg daily BP stable Continue monitor BP Hypothyroidism TSH 11 Recently started on Levothyroxine couple days ago Check TSH in 4 to 6 weeks CAD s/p CABG Continue aspirin, statin and metoprolol Denies any symptoms Hx Paroxysmal A FIB On NSR and rate control with metoprolol Continue aspirin Hodgkin's lymphoma status post splenectomy, chemotherapy, radiation H cervical cancer status post surgery stable Hyperglycemia Hemoglobin A1c of 5.9 on 03/01/20 Continue diet and exercise Anxiety Will consider to add SSRI Psych consulted DVT px on Lovenox Code Status FULL CODE Admission and Anticipated Discharge Date Admission Date: March 01, 2020 Subjective Pt was seen and examined Lying in bed with no distress with at bedside Pt said that she feels ok She said that she has not had the episode of flushing and clammy since being in the hospital Pt said that she used to have the flushing and clammy feeling about once every other months, but now she is having them more often She said that she had hot flashes, but those episodes don't feel hot flashes Pt said that she has history of anxiety Currently denies any chest pain, palpitation, dizziness, SOB and palpitation Physical Exam Physical Exam: General- No acute distress Head- atraumatic Eyes- PERRL, EOMI, ENT- oropharynx clear Neck- supple, no JVD Lungs- clear to auscultation Heart- regular rhythm; +murmur Abdomen- normal bowel sounds, soft, nontender Extremities- no calf tenderness Neuro- alert, oriented x 3; PERRL, EOMI; no facial palsy; no dysarthria Skin- warm & dry Results & Data Results & Data ([facility]) Vital Signs (Past 12 Hours) Vital Signs Temp Pulse Pulse Resp BP BP Pulse Ox 03/01/20 11:58 36.7 C 77 20 117/62 98 03/01/20 09:00 75 03/01/20 07:33 36.7 C 78 20 116/61 99 03/01/20 04:12 36.5 C 75 16 124/54 L 97 03/01/20 02:50 87 03/01/20 02:03 37.1 C 76 18 163/91 H 97 03/01/20 01:34 86 16 128/80 97
--- NOTE | 2020-03-01 13:13 | Cardiology Consultation ---
Date of Consultation March 01, 2020 Assessment & Plan (1) Heart palpitations: (2) Paroxysmal A-fib: (3) Coronary artery disease: (4) Nausea: (5) Hypothyroid: (6) Anxiety: I had a lengthy discussion with the patient and her at the bedside today. At this point her symptoms do not appear to be primarily cardiac and she was counseled that I believe her symptoms are more likely secondary to a combination of anxiety and hypothyroidism. We will check an echocardiogram to evaluate for any new abnormalities, however, I will not make any changes to her medical regimen at this time. I do believe she would significantly benefit from medical therapy for her anxiety and I will ask our psychiatry colleagues to evaluate her. She states that she is now accepting of the fact that she may need an SSRI. We will continue to monitor on telemetry overnight but likely DC in the a.m. History of Present Illness Reason for Consultation: Palpitations Requesting Physician: Dr. Gifford Attending Physician: Jerrell Gifford MD History of Present Illness It was my pleasure to see Mrs. Unger in consultation today March 04, 2020. She is a very pleasant yet cardiovascular complex 49-year-old woman who normally follows with Dr. Tse of our cardiology practice. She presented to the emergency room on 02/29/2020 with complaints of increasing frequency of palpitations and elevated blood pressure. She states that for the last several weeks she is just not been feeling well. She states that she has had several episodes that significantly concern her. These episodes consist of feeling very warm and flushed, she becomes diaphoretic and develops an overall anxious feeling. During this time her heart will also race or pounding her chest. She states that the heart rate though is steady and in no way similar to her previous episodes of atrial fibrillation. She checks her blood pressure frequently at home as well and during these episodes she checks it and it steadily rises. Yesterday she had another episode at which point she describes as more severe than previous episodes and checked her blood pressure was significant elevated. Upon arrival to the emergency room she was very hypertensive but in sinus rhythm. She was admitted to telemetry with the a ddition of lisinopril for blood pressure control. She states that she still feels very anxious. She believes she is going through menopause and has discussed possible initiation of SSRI with her director learning services. However, she is very reluctant to start any medications whatsoever and she has not pursued this. She was recently diagnosed as hypothyroid as well and upon cardiology's recommendations she is started levothyroxine but it only half the recommended dose as an outpatient. She has been compliant with her metoprolol. Past cardiac history as per her most recent outpatient cardiology note: 1. Paroxysmal atrial fibrillation, no recent occurrence.[id number] score. Her score is 3 for risk factors of female sex, history of hypertension, and history of vascular disease. Patient prefers ongoing ASA therapy over anticoagulation at this time. She is aware of stroke risks. 2. Coronary heart disease, non ST segment elevation myocardial infarction 2005 with subsequent findings of severe multivessel coronary heart disease including 70% ostial left main, 100% proximal RCA, 80% mid circumflex, 70% ostial diagonal with subsequent CABG x3 including IRIZARRY to LAD, SVG to obtuse marginal and SVG to diagonal. Negative nuclear stress testing. 3. Aortic valve disease-mild aortic valve stenosis, moderate aortic valve regurgitation 4. Mitral annular calcification Allergies Allergy/AdvReac Type Severity Reaction Status Date / Time Penicillins Allergy Severe SOB, HIVES Verified 02/29/20 23:13 fentanyl Allergy Intermediate ITCHY HIVES Verified 02/29/20 23:13 morphine Allergy Intermediate ITCHY HIVES Verified 02/29/20 23:13 adhesive Allergy Mild LOCAL Verified 02/29/20 23:13 HIVE/RASH NITRO AdvReac Intermediate profuse Uncoded 02/29/20 23:13 vomiting increases heart rate Home Medications Home Medications Medication Instructions Recorded Confirmed Type aspirin [Aspir-81] 81 mg PO DAILY 10/22/18 02/29/20 History ibuprofen [Advil] 600 mg PO DIRECTED PRN 10/22/18 02/29/20 History metoprolol succinate 100 mg PO BID 10/22/18 02/29/20 History omeprazole 20 mg PO DAILY 10/22/18 02/29/20 History rosuvastatin [Crestor] 40 mg PO HS 10/22/18 02/29/20 History levothyroxine 25 mcg PO DAILY 02/29/20 02/29/20 History Patient History Medical History CAD (coronary artery disease) Hodgkin disease (Resolved) Migraine (Acute) Paroxysmal A-fib Surgical History History of hysterectomy (Resolved) History of splenectomy (Resolved) Hx of CABG (Resolved) Social History Preferred Language: Albanian Communication Ability: Effective Recreation Technician Required: No Beliefs That Will Affect Care: None Current Living Situation: Spouse Other Information That Helps Us Care for You: No Feels Safe at Home: Yes Safety Concerns: Feels Safe At This Time Smoking Status: Former smoker Tobacco Type: cigarettes ; Do You Dip or Chew Tobacco: No ; Smoking End Date: 1998 ; Second Hand Exposure: No ; Tobacco Cessation Education Requested by Patient: No Hx Alcohol Use: No Hx Substance Use: No Review of Systems Review of Systems: All systems reviewed & are unremarkable except as noted in HPI & below Physical Exam Physical Exam: General: Awake, alert and oriented x 3. No acute distress but rather anxious. HEENT: Normocephalic, atraumatic. Pupils equal, round and reactive to light and accommodation. Extraocular muscles are intact. Anicteric sclera. Moist mucous membranes. Neck: No JVD. No bruit. Cardiovascular: Regular. Positive S-4. Normal S-1 and S-2. No S-3. 3/6 mid to late systolic ejection murmur, greatest at the right sternal border, second intercostal space with radiation to the bilateral carotids. No rubs. Pulmonary: Clear to auscultation bilaterally. No rales, rhonchi, or wheezing. Abdomen: Bowel sounds x 4, soft. No rebound, guarding or tenderness. No organomegaly. Extremities: No clubbing, cyanosis or edema. +2 pedal pulses bilaterally. Skin: Warm and dry. Results & Data ([facility]) Vital Signs (Past 12 Hours) Vital Signs Temp Pulse Pulse Resp BP BP Pulse Ox 03/01/20 11:58 36.7 C 77 20 117/62 98 03/01/20 09:00 75 03/01/20 07:33 36.7 C 78 20 116/61 99 03/01/20 04:12 36.5 C 75 16 124/54 L 97 03/01/20 02:50 87 03/01/20 02:03 37.1 C 76 18 163/91 H 97 03/01/20 01:34 86 16 128/80 97
--- NOTE | 2020-03-01 15:05 | Electrocardiogram Report ---
Test Reason : Blood Pressure : / mmHG Vent. Rate : 097 BPM Atrial Rate : 097 BPM P-R Int : 182 ms QRS Dur : 090 ms QT Int : 374 ms P-R-T Axes : 059 -46 074 degrees QTc Int : 474 ms Normal sinus rhythm Left axis deviation Nonspecific ST abnormality Abnormal ECG When compared with ECG of 21-OCT-2018 22:06, No significant change was found Confirmed by Shiv Kim ([id number]) on 03/01/2020 3:05:14 PM Referred By: REFERRED SELF Confirmed By:Shiv Kim
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
[2020-03-01] MEDS ORDERED: SERTRALINE HCL 50 MG TABLET PO ONE (17:11)
[2020-03-01] MEDS ORDERED: ROSUVASTATIN CALCIUM 20 MG TAB PO SCH (21:00)
[2020-03-02] MEDS: LEVOTHYROXINE SODIUM 25 MCG TABLET PO SCH (06:10)
[2020-03-02] MEDS: ASPIRIN 81 MG ECTAB PO SCH (08:23)
[2020-03-02] MEDS: METOPROLOL SUCC 50MG EXT REL TAB PO SCH (08:24)
[2020-03-02] MEDS: ENOXAPARIN INJ 40 MG/0.4 ML SYR SQ SCH (08:25)
[2020-03-02] MEDS: PANTOprazole 40 MG TAB PO SCH (08:25)
[2020-03-02] MEDS ORDERED: SERTRALINE HCL 50 MG TABLET PO SCH (09:00)
--- NOTE | 2020-03-02 14:02 | Cardiology Progress Note ---
Date of Service March 02, 2020 Assessment & Plan (1) Heart palpitations: (2) Paroxysmal A-fib: (3) Coronary artery disease: (4) Nausea: (5) Hypothyroid: (6) Anxiety: I had a lengthy discussion with the patient and her at the bedside today. At this point her symptoms do not appear to be primarily cardiac and she was counseled that I believe her symptoms are more likely secondary to a combination of anxiety and hypothyroidism. Her cardiac work-up has been unremarkable and I appreciate input from our psychiatric colleagues. We will discontinue lisinopril and discharge home on previous dose of metoprolol. Okay to discharge to home from a cardiac standpoint. Subjective Patient seen and examined, chart reviewed. at bedside. Patient states that she is feeling okay today. No recurrences of palpitations and has been seen by psychiatry and agrees to starting a trial of Zoloft. Telemetry reviewed: Normal sinus rhythm without arrhythmias or significant ectopy. Review of Systems Review of Systems: All systems reviewed & are unremarkable except as noted in HPI & below Physical Exam Physical Exam: General: Awake, alert and oriented x 3. No acute distress. HEENT: Normocephalic, atraumatic. Pupils equal, round and reactive to light and accommodation. Extraocular muscles are intact. Anicteric sclera. Moist mucous membranes. Neck: No JVD. No bruit. Cardiovascular: Regular. Positive S-4. Normal S-1 and S-2. No S-3. No murmurs or rubs. Pulmonary: Clear to auscultation B/L. No rales, rhonchi or wheezing Abdomen: Bowel sounds x 4, soft. No rebound, guarding or tenderness. No organomegaly. Extremities: No clubbing, cyanosis or edema. +2 pedal pulses bilaterally. Skin: Warm and dry. Results & Data Vital Signs (Past 12 Hours) Vital Signs Temp Pulse Resp BP BP Pulse Ox 03/02/20 11:38 36.6 C 71 19 136/77 98 03/02/20 07:43 36.7 C 81 20 134/83 97 03/02/20 04:52 36.8 C 71 16 122/64 95
--- NOTE | 2020-03-02 14:51 | Hospitalist Progress Note ---
Date of Service March 02, 2020 Assessment & Plan (1) Heart palpitations: Possible related to anxiety, hormonal changes like menopause EKG on admission showed NSR Troponin on admission negative Telemonitor showed no arrhythmia Last Echo showed normal LV chamber size and wall thickness. Normal LV systolic function without regional wall motion abnormalities. Calculated LV ejection Fraction = 64%. Grade 2 diastolic dysfunction. Moderately calcified, trileaflet aortic valve with mild aortic stenosis and mild aortic regurgitation. Moderate mitral annular calcifications with mildly calcified mitral leaflets without stenosis or regurgitation. ECHO showed no LV wall motion abnormality. EF 60 to 65% Cardiology on board Ok from cardiology standpoint to discharge home today Hypertension Possible related to hospital setting BP 193/103 on admission Lisinopril 2.5 mg was started, but discontinued by cardio because pt does not want to start it yet BP stable Continue monitor BP outpatient Hypothyroidism TSH 11 Recently started on Levothyroxine couple days ago Check TSH in 4 to 6 weeks CAD s/p CABG Continue aspirin, statin and metoprolol Denies any symptoms Hx Paroxysmal A FIB On NSR and rate control with metoprolol Continue aspirin Hodgkin's lymphoma status post splenectomy, chemotherapy, radiation H cervical cancer status post surgery stable Hyperglycemia Hemoglobin A1c of 5.9 on 03/01/20 Continue diet and exercise Anxiety Starting on Zoloft 25mg, then increased to 50mg Psych consulted Follow up with psych outpatient DVT px on Lovenox Code Status FULL CODE Admission and Anticipated Discharge Date Admission Date: March 01, 2020 Subjective Pt was seen and examined Lying in bed with no distress Pt said that she feels ok Tolerated the Zoloft that was started yesterday Denies any chest pain, palpitation and SOB Physical Exam Physical Exam: General- No acute distress Head- atraumatic Eyes- PERRL, EOMI, ENT- oropharynx clear Neck- supple, no JVD Lungs- clear to auscultation Heart- regular rhythm; +murmur Abdomen- normal bowel sounds, soft, nontender Extremities- no calf tenderness Neuro- alert, oriented x 3; PERRL, EOMI; no facial palsy; no dysarthria Skin- warm & dry Results & Data Results & Data ([facility]) Vital Signs (Past 12 Hours) Vital Signs Temp Pulse Resp BP BP Pulse Ox 03/02/20 11:38 36.6 C 71 19 136/77 98 03/02/20 07:43 36.7 C 81 20 134/83 97 03/02/20 04:52 36.8 C 71 16 122/64 95
--- NOTE | 2020-03-05 19:35 | Discharge Summary ---
Date of Service March 02, 2020 Admission HPI Per Admitting Provider History obtained from patient and records. Medical history significant for CAD status post CABG, PAF, hypertension, hyperlipidemia, aortic stenosis/aortic regurgitation as per records, Hodgkin's lymphoma status post splenectomy/chemotherapy/radiation, cervical cancer status post surgery, hypothyroidism, past tobacco abuse. Last confinement October 2018 for PAF. Spontaneous conversion to NSR. 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 The last week, patient had intermittent episodes (about 3 as per patient) of palpitations with shortness of breath, achy headache, clamminess lasting for about an hour, occurring even at rest. Blood pressure during episodes 170s. Patient compliant with medications. Denies unusual stress/inordinate caffeine intake. No cough/flulike symptoms/abdominal pain, dysuria symptoms. Patient initiated levothyroxine Rx for hypothyroidism a few days ago. Last night patient had recurrence of episode. SBP at home noted to be 200s. Patient brought by to ER. Patient currently comfortable. Medical History as above [facility] Gynecology visit last December 2019. Worsening menopause symptoms increased anxiety, sleeplessness, night sweats and hot flashes symptoms as per provider note. Consideration for SSRI Rx (patient not interested in hormonal treatment) as per note. 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 Admission Exam Per Admitting Provider GENERAL: Comfortable, slightly anxious, obese, no respiratory distress SKIN: Normal color, warm HEENT: Bespectacled, [place] palpebral conjunctivae, no ptosis, dry buccal mucosa NECK : Supple, no tenderness CHEST : CTA, no tenderness HEART : RRR, systolic murmur ABDOMEN: Some distention, nontender EXTREMITIES : Minimal LE swelling, no LE tenderness, no other conspicuous deformities noted NEUROLOGIC : Coherent, no facial asymmetry, no other gross focality Principal Diagnosis Heart palpitations: Hypertension Hypothyroidism CAD s/p CABG Hx Paroxysmal A FIB Hodgkin's lymphoma status post splenectomy, chemotherapy, radiation H cervical cancer status post surgery Hyperglycemia Anxiety Discharge Exam General- No acute distress Head- atraumatic Eyes- PERRL, EOMI, ENT- oropharynx clear Neck- supple, no JVD Lungs- clear to auscultation Heart- regular rhythm; +murmur Abdomen- normal bowel sounds, soft, nontender Extremities- no calf tenderness Neuro- alert, oriented x 3; PERRL, EOMI; no facial palsy; no dysarthria Skin- warm & dry Discharge Data Allergies Allergy/AdvReac Type Severity Reaction Status Date / Time Penicillins Allergy Severe SOB, HIVES Verified 02/29/20 23:13 fentanyl Allergy Intermediate ITCHY HIVES Verified 02/29/20 23:13 morphine Allergy Intermediate ITCHY HIVES Verified 02/29/20 23:13 adhesive Allergy Mild LOCAL Verified 02/29/20 23:13 HIVE/RASH NITRO AdvReac Intermediate profuse Uncoded 02/29/20 23:13 vomiting increases heart rate Consultations 03/01/20 00:12 ED Decision to Admit Stat 03/01/20 01:55 Consult Cardiology Routine 03/01/20 11:00 Consult Psychiatry Routine Ordered Studies 02/29/20 22:21 CT head/brain wo con Urgent XR chest 1V portable CLINICAL HISTORY: hypertension COMPARISON STUDY: Chest radiograph August 21, 2008. FINDINGS: Lung volumes are normal. Lungs are clear. There is no pneumothorax or pleural effusion. Cardiac size is normal. Mediastinal contours are normal. There is no evidence for pulmonary edema. Note is made of median sternotomy wires and mediastinal surgical clips. IMPRESSION: No acute cardiopulmonary findings. ACT 112: Negative or not required by law. Electronically signed by: Blaine Bradley M.D. 03/01/2020 7:36 AM Dictated: 03/01/20734 Transcribed: 03/01/20734 CT head/brain wo con CLINICAL HISTORY: 49 years-old Female with headache, hypertension. Acute headache with hypertension TECHNIQUE: Multiple axial CT images of the head were obtained without contrast. A dose lowering technique was utilized adhering to the principles of ALARA. CT DOSE: 537.48 mGy.cm COMPARISON: Head CT 06/15/2013 FINDINGS: No acute intracranial hemorrhage, midline shift, intracranial mass, hydrocephalus, territorial ischemia or abnormal extra-axial collection. The calvarium is intact. 8 mm cutaneous lesion of the left parietal scalp near the vertex. The paranasal sinuses, mastoid air cells, and middle ear cavities are clear. IMPRESSION: No acute intracranial abnormality. ACT 112: Negative or not required by law. The above report was generated using voice recognition software. It may contain grammatical, syntax or spelling errors. Electronically signed by: Jan Mora M.D. 03/01/2020 6:47 AM Dictated: 03/01/20644 Transcribed: 03/01/20644 Hospital Course (1) Heart palpitations: Possible related to anxiety, hormonal changes like menopause EKG on admission showed NSR Troponin on admission negative Telemonitor showed no arrhythmia Last Echo showed normal LV chamber size and wall thickness. Normal LV systolic function without regional wall motion abnormalities. Calculated LV ejection Fraction = 64%. Grade 2 diastolic dysfunction. Moderately calcified, trileaflet aortic valve with mild aortic stenosis and mild aortic regurgitation. Moderate mitral annular calcifications with mildly calcified mitral leaflets without stenosis or regurgitation. ECHO showed no LV wall motion abnormality. EF 60 to 65% Cardiology on board Ok from cardiology standpoint to discharge home today Hypertension Possible related to hospital setting BP 193/103 on admission Lisinopril 2.5 mg was started, but discontinued by cardio because pt does not want to start it yet BP stable Continue monitor BP outpatient Hypothyroidism TSH 11 Recently started on Levothyroxine couple days ago Check TSH in 4 to 6 weeks CAD s/p CABG Continue aspirin, statin and metoprolol Denies any symptoms Hx Paroxysmal A FIB On NSR and rate control with metoprolol Continue aspirin Hodgkin's lymphoma status post splenectomy, chemotherapy, radiation H cervical cancer status post surgery stable Hyperglycemia Hemoglobin A1c of 5.9 on 03/01/20 Continue diet and exercise Anxiety Starting on Zoloft 25mg, then increased to 50mg Psych consulted Follow up with psych outpatient DVT px on Lovenox Code Status FULL CODE Total Time Total Time Spent Total Time Spent (In Minutes): 35 minutes Total Time Includes: Examination of the Patient, Discharge Planning, Medication Reconciliation, Communication With Other Providers and Other Discharge Plan Discharge Items Patient Disposition: Home - Self-Care Reason For Visit: PALPITATIONS Discharge Diagnosis: Heart palpitations: Hypertension Hypothyroidism Anxiety Activity: Resume your previous activity Non-emergency contact: Primary Care Provider and Radio Repairer Domestic Call non-emergency contact if: you have any medication questions Follow-up/Referrals: Devonte De Leon MD [Primary Care Provider] - Diet: Heart Healthy Addtl Attending Provider Instructions: Follow up with your primary care provider Dr. De Leon on 03/08 @ 11:20 AM Follow up with psychiatrist (your provider will refer you) Continue monitor your blood pressure and bring your blood pressure log at your next appointment with your physician Check TSH in 4 weeks Your provider or psychiatrist will titrate the Zoloft if needs Pending Studies at Discharge: No Stand-Alone Forms: My [facility], Smoking Cessation Medications and DC Order Prescriptions: New sertraline 50 mg Tablet 50 mg PO QAM Qty: 30 RF: 0 Continued levothyroxine 25 mcg tablet 25 mcg PO DAILY RF: 0 metoprolol succinate 200 mg Tablet Extended Release 24 Hr 100 mg PO BID RF: 0 aspirin [Aspir-81] 81 mg Tablet,Delayed Release (Dr/Ec) 81 mg PO DAILY RF: 0 ibuprofen [Advil] 200 mg Tablet 600 mg PO DIRECTED PRN (Reason: Pain) RF: 0 omeprazole 20 mg Capsule,Delayed Release(Dr/Ec) 20 mg PO DAILY RF: 0 rosuvastatin [Crestor] 40 mg Tablet 40 mg PO HS RF: 0 Discharge Orders: Discharge Order (Routine); Ordered 03/02/20 Ordered By: Jerrell Gifford Admission Data Admit Date/Time: 03/01/20 01:31 Attending Provider: Jerrell Gifford Admit Provider: Hilario Aparicio Primary Care Provider: Devonte De Leon Other Providers: Wilfred Ivory Other Interventions: Discharge Summary Assessment (RN) Last Done: 03/02/20 16:13 PSY Interdisciplinary Discharge Planning Last Done: 03/02/20 11:41 DC Date/Time DO NOT enter until pt leaves facility: 03/02/20 15:50
== END 2020-03-02 15:50 | disposition home or self-care (01) ==
LOC: ED 21:49 → 2E 21:49

== ENCOUNTER 2020-05-22 09:35 | Inpatient (IN) ==
[2020-05-22] MEDS ORDERED: OPTIRAY 320 125ml IV ONE (09:57)
--- NOTE | 2020-05-22 09:57 | Emergency Department Note ---
Impression & Plan Scotoma, Carotid artery disease, Elevated troponin ED Provider Note NAME: HOLLY ALFONSO AGE: 50 SEX: F : 1970 ARRIVES VIA: Walk-In INFORMANT: Patient, ED PROVIDER(S): Shiv Fulton DO CHIEF COMPLAINT: Visual problems HPI: The patient is a 50-year-old female who presented to the emergency department at the request of her primary care physician for an evaluation of visual problems. The patient states that last evening around 9 PM she started noticing visual difficulty in her right eye. She notices a "darkening" of the peripheral vision in her right eye. When she closes her eye this becomes more of a white spot. She denies having any headache nausea or vomiting. She does have a history of migraine in the past but experiences no headache at this time. She denies having any fevers. She has no head injury. The patient states that she has never had a stroke before but does have a history of coronary artery d isease as well as paroxysmal atrial fibrillation. The patient states that she called her primary care physician this morning and was referred to the emergency department for a stroke work-up. The patient states she is never had any problems with retinal bleeding in the past. She only takes aspirin. She does not take any other oral anticoagulants. The patient states her symptoms have been fixed essentially since last evening and do not appear to be worsening or improving. ROS: See above HPI for pertinent positives & negatives. A total of 10 systems reviewed and were otherwise negative. PAST MEDICAL HISTORY: See Below PAST SURGICAL HISTORY: See Below FAMILY HISTORY: See Below SOCIAL HISTORY: See Below HOME MEDICATIONS: See Below ALLERGIES: See Below VITALS: See Below PHYSICAL EXAMINATION: GENERAL: Patient is awake alert in no acute distress patient is resting comfortably and showing no signs of anxiety EYES: The conjunctivae are clear. The pupils are round and reactive. EARS, NOSE, MOUTH AND THROAT: The nose is without any evidence of any deformity. NECK: The neck is nontender and supple. RESPIRATORY: Normal respiratory effort is noted there is no evidence of wheezing rhonchi or rales CARDIOVASCULAR: Regular rate and rhythm was noted to auscultation. Systolic murmur was suggested. GASTROINTESTINAL: The abdomen is soft. Abdomen is nontender. MUSCULOSKELETAL/EXTREMITIES: There is no evidence of gross deformity full range of motion is noted in the hips and shoulders. SKIN: There is no obvious evidence of any rash. There are no petechiae, pallor or cyanosis noted. NEUROLOGIC: Patient is awake alert and oriented x3 strength is symmetric p atellar reflexes are 2+ bilaterally MEDICAL DECISION MAKING: The patient is a 50-year-old female who presented to the emergency department for an evaluation of decreased vision in the right eye. She describes a darkened area in her peripheral vision on the right eye. This could be consistent with a scotoma of central nervous system origin. She has a history of paroxysmal atrial fibrillation but does not take oral anticoagulation at this time. She called her family doctor and was referred to the emergency department for possible central nervous system abnormality. I discussed the patient's laboratory and radiographic studies with her. She was found to have signs of carotid artery disease which may be related to the patient's symptoms today but also the vertebral artery which may be occluded versus hypoplastic. She was given aspirin in the emergency department. She was also found to have an elevated troponin but at this time I feel her EKG is not significantly changed from previous. I discussed the patient's condition with the on-call [facility]. She may require further inpatient management and work-up to evaluate the cause of her symptoms. Triage Nursing notes reviewed. Prior medical records reviewed Vital Signs: reviewed and remarkable for no significant abnormalities Differential diagnosis: Infection, dehydration, metabolic abnormality, hypo/hyperglycemia, electrolyte disturbance, anemia, hypoxia, cardiac sources, intracerebral event, toxicologic, neurologic, as well as other pathologies. ER treatment provided: See below Diagnostics interpreted by me: ECG: EKG was obtained in the emergency department. My interpretation is normal sinus rhythm at 85 bpm. There is no ectopy. There is no acute ST segment abnormalities noted. High lateral T wave abnormalities were noted. This was compared to a tracing from February 182019. No significant changes were noted. Cardiac Monitoring: An order was placed for continuous cardiac monitoring. The monitor shows a rate of 82 bpm with sinus rhythm. Laboratory studies: As stated above and show below. Imaging studies: See below Consultation(s): 1130: I discussed this case with Ludy who is on-call for the [facility]. They will evaluate the patient in the emergency department for further management and disposition. Past Med/Surg History Medical History CAD (coronary artery disease) Hodgkin disease Migraine Paroxysmal A-fib Surgical History History of hysterectomy History of splenectomy Hx of CABG Social History Smoking Status: Former smoker Tobacco Type: Cigarettes Second Hand Exposure: No; Hx Alcohol Use: No Hx Substance Use: No Preferred Language: Amharic Communication Ability: Effective Advertisement Distributor Required: No Current Living Situation: Spouse Feels Safe at Home: Yes Assistive Devices: Glasses Allergies Allergies Allergy/AdvReac Type Severity Reaction Status Date / Time Penicillins Allergy Severe SOB, HIVES Verified 05/22/20 09:55 fentanyl Allergy Intermediate ITCHY HIVES Verified 05/22/20 09:55 morphine Allergy Intermediate ITCHY HIVES Verified 05/22/20 09:55 adhesive Allergy Mild LOCAL Verified 05/22/20 09:55 HIVE/RASH NITRO AdvReac Intermediate profuse Uncoded 05/22/20 09:55 vomiting increases heart rate Home Meds Home Medications Medication Instructions Recorded Confirmed ibuprofen [Advil] 600 mg PO DIRECTED PRN 10/22/18 05/22/20 metoprolol succinate 100 mg PO BID 10/22/18 05/22/20 omeprazole 20 mg PO DAILY 10/22/18 05/22/20 rosuvastatin [Crestor] 40 mg PO HS 10/22/18 05/22/20 levothyroxine 25 mcg PO DAILY 02/29/20 05/22/20 aspirin [Aspirin Low-Strength] 81 mg PO DAILY 05/22/20 05/22/20 sertraline 25 mg PO QAM 05/22/20 05/22/20 Results & Data (ED) Vital Signs Vital Signs - 24 hr 05/22/20 09:46 05/22/20 09:49 05/22/20 09:55 Temperature 36.4 C L Temperature Source Oral Pulse Rate 84 100 H 89 Pulse Rate from SpO2 Sensor 84 89 Respiratory Rate 9 L 84 H 10 L Respiratory Effort / Characteristics Non-Labored Respiratory Depth Normal Blood Pressure 184/107 H 184/107 H Blood Pressure Mean 113 132 Pulse Oximetry 98 20 L 99 Oxygen Delivery Method Room Air Sepsis Recent Fever Within 48 Hours No Sepsis New/Unexplained Change in Mental Status N/A Sepsis Action Taken by Nursing No Action Required 05/22/20 10:00 05/22/20 10:47 05/22/20 11:00 Temperature Temperature Source Pulse Rate 86 81 80 Pulse Rate from SpO2 Sensor 85 82 80 Respiratory Rate 13 9 L 11 L Respiratory Effort / Characteristics Respiratory Depth Blood Pressure 168/106 H 150/84 H 139/72 Blood Pressure Mean 131 105 92 Pulse Oximetry 98 96 93 Oxygen Delivery Method Sepsis Recent Fever Within 48 Hours Sepsis New/Unexplained Change in Mental Status Sepsis Action Taken by [facility] Medications Current Medication List: was personally reviewed by me Laboratory Data Attestation: I reviewed the patient's lab results. Result diagrams: 05/22/20 10:25 05/22/20 10:25 Lab Results 05/22/20 05/22/20 05/22/20 Range/Units 10:23 10:25 10:25 WBC 13.99 H (4.8-10.8) K/uL RBC 4.93 (4.2-5.4) M/uL Hgb 15.3 (12.0-16.0) g/dL POC Hgb 16.0 (12.0-16.0) g/dl Hct 47.8 H (37-47) % POC Hct 47 (37-47) % MCV 97.0 (80-100) fL MCH 31.0 (25-34) pg MCHC 32.0 (32-36) g/dL RDW Std Deviation 48.7 H (36.4-46.3) fL RDW Coeff of Prosper 13.8 (11.5-14.5) % Plt Count 403 H (130-400) K/uL MPV 10.9 H (7.4-10.4) fL Immature Gran % (Auto) 0.1 % Neut % (Auto) 53.1 % Lymph % (Auto) 31.6 % [place] % (Auto) 11.4 % Eos % (Auto) 3.2 % Baso % (Auto) 0.6 % Neut # (Auto) 7.43 H (1.4-6.5) K/uL Lymph # (Auto) 4.42 H (1.2-3.4) K/uL [place] # (Auto) 1.59 H (0.11-0.59) K/uL Eos # (Auto) 0.45 (0-0.5) K/uL Baso # (Auto) 0.08 (0-0.2) K/uL Immature Gran # (Auto) 0.02 (0.00-0.02) K/uL PT 10.6 (9.0-12.0) Seconds INR 1.0 (0.9-1.1) APTT 27.4 (21.0-31.0) Seconds PTT Ratio 1.0 POC Sodium 143 (135-144) mmol/L Sodium (136-145) mmol/L POC Potassium 4.0 (3.3-5.0) mmol/L Potassium (3.5-5.1) mmol/L POC Chloride 104 (101-112) mmol/L Chloride (98-107) mmol/L Carbon Dioxide (21-32) mmol/L POC Total CO2 27 (24-31) mmol/L Anion Gap (3-11) POC Anion Gap 17.0 (16-25) mmol/L POC BUN 12 (7-18) mg/dl BUN (7-18) mg/dl Creatinine (0.6-1.2) mg/dl POC Creatinine 0.6 (0.6-1.3) mg/dl Est Cr Clr Drug Dosing ml/min Est GFR ( Amer) Est GFR (Non-Af Amer) BUN/Creatinine Ratio (10-20) Glucose (70-99) mg/dl POC Glucose (other) 105 H (70-99) mg/dl Calcium (8.5-10.1) mg/dl POC Ioniz Calcium Ashly 1.31 (1.12-1.32) mmol/l Magnesium (1.8-2.4) mg/dl Total Bilirubin (0.2-1) mg/dl AST (15-37) U/L ALT (12-78) U/L Alkaline Phosphatase (45-117) U/L Troponin I (0-0.045) ng/ml Total Protein (6.4-8.2) gm/dl Albumin (3.4-5.0) gm/dl Globulin (2.5-4.0) gm/dl Albumin/Globulin Ratio (0.9-2) 10/10/20 Range/Units 10:25 WBC (4.8-10.8) K/uL RBC (4.2-5.4) M/uL Hgb (12.0-16.0) g/dL POC Hgb (12.0-16.0) g/dl Hct (37-47) % POC Hct (37-47) % MCV (80-100) fL MCH (25-34) pg MCHC (32-36) g/dL RDW Std Deviation (36.4-46.3) fL RDW Coeff of Prosper (11.5-14.5) % Plt Count (130-400) K/uL MPV (7.4-10.4) fL Immature Gran % (Auto) % Neut % (Auto) % Lymph % (Auto) % [place] % (Auto) % Eos % (Auto) % Baso % (Auto) % Neut # (Auto) (1.4-6.5) K/uL Lymph # (Auto) (1.2-3.4) K/uL [place] # (Auto) (0.11-0.59) K/uL Eos # (Auto) (0-0.5) K/uL Baso # (Auto) (0-0.2) K/uL Immature Gran # (Auto) (0.00-0.02) K/uL PT (9.0-12.0) Seconds INR (0.9-1.1) APTT (21.0-31.0) Seconds PTT Ratio POC Sodium (135-144) mmol/L Sodium 142 (136-145) mmol/L POC Potassium (3.3-5.0) mmol/L Potassium 3.9 (3.5-5.1) mmol/L POC Chloride (101-112) mmol/L Chloride 108 H (98-107) mmol/L Carbon Dioxide 30 (21-32) mmol/L POC Total CO2 (24-31) mmol/L Anion Gap 4.0 (3-11) POC Anion Gap (16-25) mmol/L POC BUN (7-18) mg/dl BUN 12 (7-18) mg/dl Creatinine 0.80 (0.6-1.2) mg/dl POC Creatinine (0.6-1.3) mg/dl Est Cr Clr Drug Dosing 87.0 ml/min Est GFR ( Amer) 99.6 Est GFR (Non-Af Amer) 86.0 BUN/Creatinine Ratio 15.3 (10-20) Glucose 102 H (70-99) mg/dl POC Glucose (other) (70-99) mg/dl Calcium 10.3 H (8.5-10.1) mg/dl POC Ioniz Calcium Ashly (1.12-1.32) mmol/l Magnesium 2.2 (1.8-2.4) mg/dl Total Bilirubin 0.5 (0.2-1) mg/dl AST 33 (15-37) U/L ALT 47 (12-78) U/L Alkaline Phosphatase 123 H (45-117) U/L Troponin I 0.100 H* (0-0.045) ng/ml Total Protein 8.1 (6.4-8.2) gm/dl Albumin 4.0 (3.4-5.0) gm/dl Globulin 4.1 H (2.5-4.0) gm/dl Albumin/Globulin Ratio 1.0 (0.9-2) Administered Medications Discontinued Medications Aspirin (Aspirin Chew 324 Mg) 324 mg PO NOW STA Stop: 05/22/20 11:12 Last Admin: 05/22/20 11:15 Dose: 324 mg Documented by: [id number] Ioversol (Optiray 320 125ml) 118 ml IV ONCE ONE Stop: 05/22/20 09:58 Last Admin: 05/22/20 09:58 Dose: 118 ml Documented by: [id number] Imaging Data Radiologist's Impression: Patient: HOLLY ALFONSO Admit Date: 05/22/20 MR#: [id number] Address1: [address] [place] [address] Acct ID:[id number] Address2: Date: 1970 [facility] Zip: [place] [address] Age: 50 Location: ED Sex: F Room/Bed: Att Phy: Diagnosis: VISION PROBLEMS Josephine Phy: Devonte De Leon MD(ERLIN) Service Date: 05/22/20 [facility] Phy: Interpreting Phy: Blaine Bradley MD Admit Phy: Ordering Phy: Shiv Fulton DO cc: ~ XR chest 1V portable CLINICAL HISTORY: Weakness. COMPARISON STUDY: Chest radiograph February 29, 2020. FINDINGS: There are median sternotomy wires and mediastinal surgical clips. There is no pneumothorax or pleural effusion. No consolidation is identified. There is mild reticulonodular interstitial thickening within the lungs. IMPRESSION: 1. No consolidation identified. 2. Nonspecific mild reticulonodular interstitial thickening within the lungs ACT 112: Negative or not required by law. Electronically signed by: Blaine Bradley M.D. 05/22/2020 11:35 AM Dictated: 05/22/20 1133 Transcribed: 05/22/20 1133 Patient: HOLLY ALFONSO Admit Date: 05/22/20 MR#: [id number] Address1: [place] [facility] Acct ID:[id number] Address2: Date: 1970 [facility] Zip: [place] [address] Age: 50 Location: ED Sex: F Room/Bed: Att Phy: Diagnosis: VISION PROBLEMS Josephine Phy: Devonte De Leon MD(ERLIN) Service Date: 05/22/20 Fam Phy: Interpreting Phy: Blaine Bradley MD Admit Phy: Ordering Phy: Shiv Fulton DO cc: ~ CT ANGIOGRAPHY OF THE NECK WITH CONTRAST CLINICAL HISTORY: Stroke evaluation. COMPARISON STUDY: No previous studies for comparison. Technique: CT angiography of the carotid and vertebral arteries was obtained using Optiray 320 IV and 3D reconstruction on an independent workstation. NASCET criteria was utilized. Automated exposure control was utilized for the study. A dose lowering technique was utilized adhering to the principles of ALARA. Findings: Paramediastinal opacity within visualized portions of the lung apices favors postradiation change. There is no cervical lymphadenopathy. There is no cervical spine fracture. Right vertebral artery is hypoplastic. There is moderate plaque within the proximal right internal carotid artery without significant stenosis. There is mild plaque within the proximal left internal c arotid artery without stenosis. There is no intraluminal thrombus. No dissection or aneurysm within the neck is noted. Left vertebral artery is dominant and patent. CTA of the head will be reported separately. IMPRESSION: 1. Moderate plaque within the proximal right internal carotid artery and mild plaque within the proximal left internal coronary artery without significant stenosis. 2. Hypoplastic right vertebral artery. Dominant, patent left vertebral artery. ACT 112: Negative or not required by law. Electronically signed by: Blaine Bradley M.D. 05/22/2020 10:48 AM Dictated: 05/22/20 1040 Transcribed: 05/22/20 1040 Patient: HOLLY ALFONSO Admit Date: 05/22/20 MR#: [id number] Address1: [address] [facility] Acct ID:[id number] Address2: Date: 1970 [facility] Zip: [place] [address] Age: 50 Location: ED Sex: F Room/Bed: Att Phy: Diagnosis: VISION PROBLEMS Josephine Phy: Devonte De Leon MD(ERLIN) Service Date: 05/22/20 [facility] Phy: Interpreting Phy: Blaine Bradley MD Admit Phy: Ordering Phy: Shiv Fulton DO cc: ~ CTA ANGIOGRAPHY OF THE HEAD CLINICAL HISTORY: Stroke evaluation COMPARISON STUDY: Head CT February 29, 2020. TECHNIQUE: Helical axial images of the head were obtained following uneventful intravenous administration of 118 cc of Optiray 320. Sagittal and coronal reconstructions were viewed as well as maximal intensity projections on an independent 3-D workstation. Automated exposure control was utilized for the study. A dose lowering technique was utilized adhering to the principles of ALARA. CT DOSE: 1052.94 mGy.cm FINDINGS: No acute intracranial hemorrhage, midline shift or mass effect is present. Ventricular system is normal. Basilar cisterns are patent. There are no extra axial collections. The bilateral M1, M2, A1 and A2 segments are patent. The right vertebral artery is hypoplastic. No flow is identified within the distal intracranial portion of the right vertebral artery. The basilar artery is patent. The bilateral posterior cerebral arteries are patent. No central vessel occlusion is noted. There is no intracranial aneurysm. No dissection within the intracranial vessels is noted. There is no significant plaque within the intracranial vessels. IMPRESSION: 1. No flow identified within the distal right vertebral artery which is hypoplastic. This finding is age-indeterminate but probably chronic. 2. No acute central vessel occlusion. ACT 112: Negative or not required by law. Electronically signed by: Blaine Bradley M.D. 05/22/2020 10:51 AM Dictated: 05/22/20 1048 Transcribed: 05/22/20 1048 Patient: HOLLY ALFONSO Admit Date: 05/22/20 MR#: [id number] Address[address]: [address] [place] Acct ID:[id number] Address2: Date: 1970 [facility] Zip: [place] [address] Age: 50 Location: ED Sex: F Room/Bed: Att Phy: Diagnosis: VISION PROBLEMS Josephine Phy: Devonte De Leon MD(ERLIN) Service Date: 05/22/20 [facility] Phy: Interpreting Phy: Blaine Bradley MD Admit Phy: Ordering Phy: Shiv Fulton, cc: ~ CT OF THE HEAD WITHOUT CONTRAST CLINICAL HISTORY: Stroke evaluation. COMPARISON STUDY: Head CT February 29, 2020. TECHNIQUE: Helical axial images of the head were obtained without IV contrast. Automated exposure control was utilized for the study. A dose lowering technique was utilized adhering to the principles of ALARA. FINDINGS: No acute intracranial hemorrhage, midline shift or mass effect is present. The ventricular system is unremarkable. The basilar cisterns are patent. No extra-axial collections are present. There are no findings to suggest acute dural sinus thrombosis or acute territorial infarct. No significant calvarial abnormalities are present. Visualized portions of the sinuses and mastoid air cells are clear. IMPRESSION: No acute intracranial findings. ACT 112: Negative or not required by law. Electronically signed by: Blaine Bradley M.D. 05/22/2020 10:40 AM Dictated: 05/22/20 [facility] Transcribed: 05/22/20 [facility] Blood Pressure Blood Pressure Findings: Normal blood pressure Discharge Plan Visit Data Chief Complaint: Visual Disturbance Stated Complaint: VISION PROBLEMS ED Provider: Shiv Fulton Discharge Problem: Scotoma, Carotid artery disease, Elevated troponin Patient Disposition: Being Evaluated by Hospitalist Condition: Good Forms Stand Alone Forms: My [facility] Prescriptions Prescriptions: No Action levothyroxine 25 mcg tablet 25 mcg PO DAILY RF: 0 aspirin [Aspirin Low-Strength] 81 mg Tablet,Chewable 81 mg PO DAILY RF: 0 sertraline 50 mg tablet 25 mg PO QAM RF: 0 metoprolol succinate 200 mg Tablet Extended Release 24 Hr 100 mg PO BID RF: 0 ibuprofen [Advil] 200 mg Tablet 600 mg PO DIRECTED PRN (Reason: Pain) RF: 0 omeprazole 20 mg Capsule,Delayed Release(Dr/Ec) 20 mg PO DAILY RF: 0 rosuvastatin [Crestor] 40 mg Tablet 40 mg PO HS RF: 0 Referrals Referrals: Devonte De Leon MD [Primary Care Provider] -
[2020-05-22 10:34] LABS: Basophils # (auto) 0.08 K/uL (0-0.2); Basophils % (auto) 0.6 %; Eosinophils # (auto) 0.45 K/uL (0-0.5); Eosinophils % (auto) 3.2 %; Hematocrit (blood only) 47.8 % (37-47); Hemoglobin 15.3 g/dL (12.0-16.0); Immature Granulocytes # (auto) 0.02 K/uL (0.00-0.02); Immature Granulocytes % (auto) 0.1 %; Lymphocytes # (auto) 4.42 K/uL (1.2-3.4); Lymphocytes % (auto) 31.6 %; Mean Platelet Volume 10.9 fL (7.4-10.4); Monocytes # (auto) 1.59 K/uL (0.11-0.59); Monocytes % (auto) 11.4 %; Neutrophils # (auto) 7.43 K/uL (1.4-6.5); Neutrophils % (auto) 53.1 %; Platelet Count 403 K/uL (130-400); RDW Coefficient of Variation 13.8 % (11.5-14.5); RDW Standard Deviation 48.7 fL (36.4-46.3); Red Blood Count 4.93 M/uL (4.2-5.4); White Blood Count 13.99 K/uL (4.8-10.8)
[2020-05-22 10:35] LABS: iSTAT Creatinine 0.6 mg/dl (0.6-1.3); iSTAT Ionized Calcium 1.31 mmol/l (1.12-1.32)
--- NOTE | 2020-05-22 10:41 | CT Scan Report ---
CT OF THE HEAD WITHOUT CONTRAST CLINICAL HISTORY: Stroke evaluation. COMPARISON STUDY: Head CT February 29, 2020. TECHNIQUE: Helical axial images of the head were obtained without IV contrast. Automated exposure con trol was utilized for the study. A dose lowering technique was utilized adhering to the principles o f ALARA. FINDINGS: No acute intracranial hemorrhage, midline shift or mass effect is present. The ventricular system is unremarkable. The basilar cisterns are patent. No extra-axial collections are present. Ther e are no findings to suggest acute dural sinus thrombosis or acute territorial infarct. No significan t calvarial abnormalities are present. Visualized portions of the sinuses and mastoid air cells are c lear. IMPRESSION: No acute intracranial findings. ACT 112: Negative or not required by law. Electronically signed by: Blaine Bradley M.D. 05/22/2020 10:40 AM
[2020-05-22 10:46] LABS: Partial Thromboplastin Time 27.4 Seconds (21.0-31.0); Prothrombin Time 10.6 Seconds (9.0-12.0)
--- NOTE | 2020-05-22 10:49 | CT Scan Report ---
CT ANGIOGRAPHY OF THE NECK WITH CONTRAST CLINICAL HISTORY: Stroke evaluation. COMPARISON STUDY: No previous studies for comparison. Technique: CT angiography of the carotid and vertebral arteries was obtained using [employer] 320 IV and 3D reconstruction on an independent workstation. NASCET criteria was utilized. Automated exposure c ontrol was utilized for the study. A dose lowering technique was utilized adhering to the principles of ALARA. Findings: Paramediastinal opacity within visualized portions of the lung apices favors postradiation change. There is no cervical lymphadenopathy. There is no cervical spine fracture. Right vertebral ar bo is hypoplastic. There is moderate plaque within the proximal right internal carotid artery witho ut significant stenosis. There is mild plaque within the proximal left internal carotid artery withou t stenosis. There is no intraluminal thrombus. No dissection or aneurysm within the neck is noted. Le ft vertebral artery is dominant and patent. CTA of the head will be reported separately. IMPRESSION: 1. Moderate plaque within the proximal right internal carotid artery and mild plaque within the proxi mal left internal coronary artery without significant stenosis. 2. Hypoplastic right vertebral artery. Dominant, patent left vertebral artery. ACT 112: Negative or not required by law. Electronically signed by: Blaine Bradley M.D. 05/22/2020 10:48 AM
[2020-05-22 10:51] LABS: BUN Creatinine Ratio 15.3 (10-20); Calcium 10.3 mg/dl (8.5-10.1); Est GFR (African American) 99.6; Magnesium 2.2 mg/dl (1.8-2.4); Potassium 3.9 mmol/L (3.5-5.1)
--- NOTE | 2020-05-22 10:52 | CT Scan Report ---
CTA ANGIOGRAPHY OF THE HEAD CLINICAL HISTORY: Stroke evaluation COMPARISON STUDY: Head CT February 29, 2020. TECHNIQUE: Helical axial images of the head were obtained following uneventful intravenous administr ation of 118 cc of Optiray 320. Sagittal and coronal reconstructions were viewed as well as maximal i ntensity projections on an independent 3-D workstation. Automated exposure control was utilized for the study. A dose lowering technique was utilized adhering to the principles of ALARA. CT DOSE: 1052.94 mGy.cm FINDINGS: No acute intracranial hemorrhage, midline shift or mass effect is present. Ventricular syst em is normal. Basilar cisterns are patent. There are no extra axial collections. The bilateral M1, M2 , A1 and A2 segments are patent. The right vertebral artery is hypoplastic. No flow is identified wit hin the distal intracranial portion of the right vertebral artery. The basilar artery is patent. The bilateral posterior cerebral arteries are patent. No central vessel occlusion is noted. There is no i ntracranial aneurysm. No dissection within the intracranial vessels is noted. There is no significant plaque within the intracranial vessels. IMPRESSION: 1. No flow identified within the distal right vertebral artery which is hypoplastic. This finding is age-indeterminate but probably chronic. 2. No acute central vessel occlusion. ACT 112: Negative or not required by law. Electronically signed by: Blaine Bradley M.D. 05/22/2020 10:51 AM
[2020-05-22 10:58] LABS: Bilirubin,Total 0.5 mg/dl (0.2-1); Globulin 4.1 gm/dl (2.5-4.0); Total Protein 8.1 gm/dl (6.4-8.2); Troponin I 0.1 ng/ml (0-0.045)
[2020-05-22] MEDS ORDERED: ASPIRIN CHEW 324 MG PO STA (11:11)
--- NOTE | 2020-05-22 11:36 | XRay Report ---
XR chest 1V portable CLINICAL HISTORY: Weakness. COMPARISON STUDY: Chest radiograph February 29, 2020. FINDINGS: There are median sternotomy wires and mediastinal surgical clips. There is no pneumothorax or pleural effusion. No consolidation is identified. There is mild reticulonodular interstitial thick ening within the lungs. IMPRESSION: 1. No consolidation identified. 2. Nonspecific mild reticulonodular interstitial thickening within the lungs ACT 112: Negative or not required by law. Electronically signed by: Blaine Bradley M.D. 05/22/2020 11:35 AM
--- NOTE | 2020-05-22 12:16 | Electrocardiogram Report ---
Test Reason : Blood Pressure : / mmHG Vent. Rate : 085 BPM Atrial Rate : 085 BPM P-R Int : 166 ms QRS Dur : 088 ms QT Int : 382 ms P-R-T Axes : 055 -43 076 degrees QTc Int : 454 ms Normal sinus rhythm Left axis deviation Nonspecific ST abnormality Abnormal ECG When compared with ECG of 29-FEB-2020 22:00, No significant change was found Confirmed by Shiv Kim ([id number]) on 05/22/2020 12:16:02 PM Referred By: REFERRED SELF Confirmed By:Shiv Kim
--- NOTE | 2020-05-22 12:16 | History & Physical Report ---
Date of Service May 22, 2020 Assessment & Plan (1) Visual changes: This is a 50-year-old female who has significant past medical history of CAD with history of CABG x3 in 2006, 1 document episode of PAF, mild aortic valve stenosis, HTN, history of Hodgkin's lymphoma, history of uterine CA who presents to ED secondary to right eye visual changes starting at 9 PM last evening. 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 Caraballo for hodgkins lymphoma, hx of uterine/cerivcal ca - they are monitoring monitor (4) Coronary artery disease: hx of cabg x 3 in 2005 no cp or ecg change mild elevation in trop, plan as above on ASA, statin, metoprolol as outpt Pt does have mild aortic valve stenosis per recent echo 02/2020, EF 60-65%, grade 1 diastolic dysfunction (5) Carotid artery disease: CTA neck reveal Moderate plaque within the proximal right internal carotid artery and mild plaque within the proximal left internal coronary artery without significant stenosis Already on high intensity statin, asa obtain fasting lipid panel neurology consulted (6) Paroxysmal A-fib: 1 time episode of PAF, no recurrence follows [facility] on ASA and metoprolol (7) HLD (hyperlipidemia): continue statin (8) Hypothyroid: continue levothyroxine (9) Anxiety: continue zoloft pt tearful 2/2 to current situation of hospitalization (10) GERD (gastroesophageal reflux disease): continue PPI (11) DVT prophylaxis: SCD/TEDS Disposition: admit to [facility] tele Follow up: PCP Dr. De Leon upon discharge Pt was seen and examined in collaboration with Dr. Reilly, please see addendum Starting 05/23/2020 pt will be under the care of Dr. Gonzalez History of Present Illness Chief Complaint: Right eye visual change starting at 9 PM last evening. Primary Care Provider: Devonte De Leon MD This is a 50-year-old female who has significant past medical history of CAD with history of CABG x3 in 2006, 1 document episode of PAF, mild aortic valve stenosis, HTN, history of Hodgkin's lymphoma, history of uterine CA who presents to ED secondary to right eye visual changes starting at 9 PM last evening. She states yesterday evening she was in her normal state of health when approximate ly 9 PM she developed sudden onset visual change to her right eye. She describes it as a black curtain on the top half and the lateral half of her right visual field. She denied any acute pain, redness, headache, diplopia, blurred vision, change in hearing, lightheadedness or dizziness associated with symptoms. She also denies any change in her overall visual acuity. She does have history of ocular migraine and thought maybe this was the start of that; however, it never progressed to that and she continues to have the same visual changes. Typically with her ocular migraine she will get a white halo-like appearance to her right eye. She otherwise denies any extremity weakness, dysarthria or difficulty swallowing. She denies any similar symptoms in the past. She denies any recent fever, chills, sweats, chest pain, palpitations, shortness of breath, shortness of breath with exertion, nausea, vomiting, abdominal pain, change in her bowel or urinary habits. She is overall very anxi ous and tearful over her current situation requiring hospital admission. Her is at bedside. In ED upon arrival patient was significantly hypertensive although very anxious. During my evaluation it was 140s over 80s. She was otherwise hemodynamically stable. Lab work notable for WBC 13.99k, H&H 16.0 and 47.8, platelet 403, BUN 12, creatinine 0.8, glucose 102, alkaline phosphatase 123, troponin 0.1, calcium 10.3. Head CT was unremarkable for acute abnormality. CTA of head neck revealed hypoplastic right vertebral artery as well as moderate plaque to the right internal carotid artery but no significant stenosis. CXR: Chest x-ray revealed nonspecific mild reticulonodular interstitial thickening within the lungs Allergies Allergy/AdvReac Type Severity Reaction Status Date / Time Penicillins Allergy Severe SOB, HIVES Verified 05/22/20 09:55 fentanyl Allergy Intermediate ITCHY HIVES Verified 05/22/20 09:55 morphine Allergy Intermediate ITCHY HIVES Verified 05/22/20 09:55 adhesive Allergy Mild LOCAL Verified 05/22/20 09:55 HIVE/RASH NITRO AdvReac Intermediate profuse Uncoded 05/22/20 09:55 vomiting increases heart rate Home Medications Home Medications Medication Instructions Recorded Confirmed Type ibuprofen [Advil] 600 mg PO DIRECTED PRN 10/22/18 05/22/20 History metoprolol succinate 100 mg PO BID 10/22/18 05/22/20 History omeprazole 20 mg PO DAILY 10/22/18 05/22/20 History rosuvastatin [Crestor] 40 mg PO HS 10/22/18 05/22/20 History levothyroxine 25 mcg PO DAILYBB 02/29/20 05/22/20 History aspirin [Aspirin Low-Strength] 81 mg PO DAILY 05/22/20 05/22/20 History sertraline 25 mg PO QPM 05/22/20 05/22/20 History Past Med/Surg History Medical History (Updated 05/22/20 @ 12:30 by Ludy Smith PA-C) CAD (coronary artery disease) GERD (gastroesophageal reflux disease) History of cervical cancer History of uterine cancer HLD (hyperlipidemia) Hodgkin disease IMPRESSION: 1. No consolidation identified. 2. Nonspecific mild reticulonodular interstitial thickening within the lungs Migraine Paroxysmal A-fib Surgical History (Updated 05/22/20 @ 12:28 by Ludy Smith PA-C) History of bone marrow biopsy History of hysterectomy History of pneumonectomy History of splenectomy History of tonsillectomy Hx of CABG x 3 2005 Family History Brother Coronary heart disease, Onset Age: 40 Father Coronary heart disease CABG Mother Breast cancer Hypertension Social History Smoking Status: Former smoker Tobacco Type: Cigarettes Second Hand Exposure: No; Hx Alcohol Use: No Hx Substance Use: No Preferred Language: Icelandic Communication Ability: Effective Supervisor Cellars Required: No Current Living Situation: Spouse Feels Safe at Home: Yes Assistive Devices: Glasses Review of Systems Review of Systems: All systems reviewed & are unremarkable except as noted in HPI & below Physical Exam Physical Exam: Constitutional: WD/WN, F, vitals as above, tearful, NAD, sitting up in bed, pleasant, conversing easily Head: Normocephalic, Atraumatic Eyes: PERRL, conjunctivae normal, no visual field deficit, anicteric sclerae ENMT: external ear and nose normal, oropharynx normal Neck: trachea midline, no thyromegaly normal visual inspection Respiratory: normal respiratory effort, lungs clear to auscultation, no wheeze, rales, rhonchi. Normal insp/exp effort, no accessory muscle use Cardiovascular: RRR, 2/6 JODY noted RUSB with radiation to cardiac apex, no edema Vessels: no JVD or carotid bruit Chest: normal inspection of chest Abdomen: normal bowel sounds, soft, nontender, no hepatosplenomegaly Musculoskeletal: no cyanosis or clubbing, extremities motor strength 5/5 Skin: no rashes, warm and dry normal turgor Neurologic: PERRL, EOMI, accommodation nl, no face palsy, no dysarthria CN's II-XI intact bilaterally and moves all extremities Psychiatric: A+Ox3, tearful, euthymic affect Lymphatic: no cervical or axillary lymphadenopathy : deferred Results & Data Results & Data ([facility]) Vital Signs (Past 12 Hours) Vital Signs Temp Pulse Resp BP Pulse Ox 05/22/20 11:00 80 11 L 139/72 93 05/22/20 10:47 81 9 L 150/84 H 96 05/22/20 10:00 86 13 168/106 H 98 05/22/20 09:55 89 10 L 99 05/22/20 09:49 36.4 C L 100 H 84 H 184/107 H 20 L 05/22/20 09:46 84 9 L 184/107 H 98 Laboratory Results Short CBC 05/22/20 Range/Units 10:25 WBC 13.99 H (4.8-10.8) K/uL Hgb 15.3 (12.0-16.0) g/dL Hct 47.8 H (37-47) % Plt Count 403 H (130-400) K/uL BMP 05/22/20 10:25 Sodium 142 Potassium 3.9 Chloride 108 H Carbon Dioxide 30 BUN 12 Creatinine 0.80 Glucose 102 H Calcium 10.3 H Cardiac Enzymes 05/22/20 Range/Units 10:25 Troponin I 0.100 H* (0-0.045) ng/ml Liver Function 05/22/20 Range/Units 10:25 Total Bilirubin 0.5 (0.2-1) mg/dl AST 33 (15-37) U/L ALT 47 (12-78) U/L Alkaline Phosphatase 123 H (45-117) U/L Albumin 4.0 (3.4-5.0) gm/dl Diagnostic Findings Echo 03/01/2020: Normal LVEF 66 5%, grade 1 diastolic dysfunction, tricuspid aortic valve with mild aortic stenosis. Moderate aortic regurg. Head CT: FINDINGS: No acute intracranial hemorrhage, midline shift or mass effect is present. The ventricular system is unremarkable. The basilar cisterns are patent. No extra-axial collections are present. There are no findings to suggest acute dural sinus thrombosis or acute territorial infarct. No significant calvarial abnormalities are present. Visualized portions of the sinuses and mastoid air cells are clear. IMPRESSION: No acute intracranial findings. Head CTA: IMPRESSION: 1. No flow identified within the distal right vertebral artery which is hypoplastic. This finding is age-indeterminate but probably chronic. 2. No acute central vessel occlusion. Neck CTA: IMPRESSION: 1. Moderate plaque within the proximal right internal carotid artery and mild plaque within the proximal left internal coronary artery without significant stenosis. 2. Hypoplastic right vertebral artery. Dominant, patent left vertebral artery. CXR: IMPRESSION: 1. No consolidation identified. 2. Nonspecific mild reticulonodular interstitial thickening within the lungs Medications Administered Discontinued Medications Aspirin (Aspirin Chew 324 Mg) 324 mg PO NOW STA Stop: 05/22/20 11:12 Last Admin: 05/22/20 11:15 Dose: 324 mg Documented by: [id number] Ioversol (Optiray 320 125ml) 118 ml IV ONCE ONE Stop: 05/22/20 09:58 Last Admin: 05/22/20 09:58 Dose: 118 ml Documented by: [id number] ECG Rate (beats per minute): 85 Rhythm: normal sinus Comparison ECG Date: from (02/29/20) Change: no significant change Code Status & VTE Plan Code Status Full code VTE Prophylaxis Plan VTE Prophylaxis will be ordered: Yes Supervising Physician Co-Signing Physician Notes Attending addendum: Patient seen and examined, care coordinated with Sherri Johnson PA-C. Is a 50-year-old female with past medical history of coronary artery disease, status post CABG, history of paroxysmal A. fib, hypertension hyperlipidemia Came to ER with symptoms of sudden onset of visual change on right, Around 9 PM last night patient experienced as if a curtain dropped down covering have of her right visual field, Denies of any headache, no eye pain, no weakness or paresthesia In the ER patient continues to have visual symptoms, CT head noncontrast no acute change, CTA of neck shows right carotid artery plaques Possible amaurosis fugax, High risk for acute CVA, patient's was on aspirin 81 mg daily started with Plavix, continue high intensity statin MRI of brain ordered, Neurology consult Allow permissive hypertension History of paroxysmal A. fib: On beta-ned, not on any anticoagulation except for aspirin 81 mg daily Monitoring telemetry, Added Plavix Ordered for echo, Patient will need zio patch for cardiac monitoring on discharge Mildly elevation of troponin: Possibly due to acute CVA, no complaint of chest pain, no shortness of breath no palpitation Cardiac monitoring, resting echo ordered CODE STATUS: Full code DVT prophylaxis: Subcu heparin Refer to further documentation by Ludy Johnson PA-C for discussion of other chronic issues Mary Reilly MD (1) Carotid artery disease Carotid artery disease type: unspecified Laterality: right Qualified Code(s): I77.9 - Disorder of arteries and arterioles, unspecified
[2020-05-22] MEDS ORDERED: LORazepam 0.5 MG/1 ML VIAL IV STA (12:57)
[2020-05-22] MEDS ORDERED: GADOBUTROL 65ML VIAL IV ONE (13:54)
--- NOTE | 2020-05-22 14:01 | Magnetic Resonance Report ---
MRI OF THE BRAIN WITHOUT AND WITH IV CONTRAST CLINICAL HISTORY: R eye hemianopsia COMPARISON STUDY: Head CT February 29, [address] and CTA of the head performed earlier today. TECHNIQUE: Utilizing a 1.5 Olivia magnet and dedicated coil, multiplanar, multiecho imaging of the br ain was performed pre and postcontrast administration. IV administration of 8.5 mL of Gadavist contr ast was uneventful. FINDINGS: There are no foci of restricted diffusion to suggest acute infarct. No acute intracranial h emorrhage, midline shift or mass effect is present. Brain volume is normal. Ventricular system is nor mal. Basilar cisterns are patent. Flow-voids for the major intracranial vessels are present. There is no intracranial mass or pathologic enhancement. A tubular branching enhancing focus within the right frontal lobe represents a developmental venous anomaly. A few punctate white matter T2 hyperintense foci are noted. No additional foci of parenchymal signal abnormality are present. There is no fluid w ithin the mastoid air cells or the sinuses. IMPRESSION: 1. No acute intracranial findings. 2. No intracranial mass or pathologic enhancement. 3. A few punctate white matter T2 are present as foci which are of doubtful significance. 4. Developmental venous anomaly within the right frontal lobe, a finding of no significance. ACT 112: Negative or not required by law. Electronically signed by: Blaine Bradley M.D. 05/22/2020 2:00 PM
[2020-05-22] MEDS ORDERED: SODIUM CHLORIDE 0.9% 1000ML 1,000 ML IV SCH (14:20)
[2020-05-22] MEDS ORDERED: ONDANSETRON INJ 2 MG/ML 2 ML VIAL IV PRN (14:20)
[2020-05-22] MEDS ORDERED: PHARMACIST DISCHARGE MED REC CONSULT PRN (14:20)
[2020-05-22] MEDS ORDERED: ACETAMINOPHEN 325 MG TAB PO PRN (14:20)
[2020-05-22] MEDS ORDERED: ALUMINUM/MAGNESIUM SUSP 30 ML UDC PO PRN (14:20)
[2020-05-22] MEDS ORDERED: MAGNESIUM HYDROXIDE SUSP 30 ML UDC PO PRN (14:20)
[2020-05-22] MEDS ORDERED: POLYETHYLENE (MIRALAX) 17 GM PACK PO PRN (14:20)
[2020-05-22] MEDS: CLOPIDOGREL BISULFATE 75 MG TAB PO SCH (15:41)
[2020-05-22] MEDS: SERTRALINE HCL 50 MG TABLET PO SCH (18:25)
--- NOTE | 2020-05-22 20:08 | Communication Note ---
Date of Service: May 22, 2020 Admission attending addendum: [facility] retina specialist Dr. Ravin Toney consulted, Case discussed over phone, Given patient's abrupt on onset of painless monocular/right sided vision loss, CTA of neck showing ipsilateral atherosclerotic plaque, Personal history of premature coronary artery disease, strong family history of coronary artery disease, Having central retinal artery occlusion versus venous artery occlusion highly likely In this scenario continue risk factor modification with aspirin Plavix, high intensity statin, checking hemoglobin A1c for underlying diabetes-at the current guideline, With history of paroxysmal A. fib, patient is currently in normal sinus rhythm Underlying A. fib/flutter needs to be ruled out-Zio patch on discharge Patient will be seen by Dr. Toney tomorrow for bedside ophthalmologic exam Will need to have a formal detail eye exam in the clinic once discharged Plan of care discussed with both control tower radio operator and neurology Mary Reilly MD
[2020-05-22] MEDS: ROSUVASTATIN CALCIUM 20 MG TAB PO SCH (20:52)
[2020-05-22] MEDS: METOPROLOL SUCC 50MG EXT REL TAB PO SCH (20:53)
[2020-05-23] MEDS: LEVOTHYROXINE SODIUM 25 MCG TABLET PO SCH (06:42)
[2020-05-23 07:28] LABS: Hematocrit (blood only) 43.5 % (37-47); Hemoglobin 14.2 g/dL (12.0-16.0); Mean Corpuscular Hemoglobin 31.6 pg (25-34); Mean Corpuscular Hgb Conc 32.6 g/dL (32-36); Mean Corpuscular Volume 96.9 fL (80-100); Mean Platelet Volume 10.8 fL (7.4-10.4); Platelet Count 370 K/uL (130-400); RDW Coefficient of Variation 13.8 % (11.5-14.5); Red Blood Count 4.49 M/uL (4.2-5.4); White Blood Count 12.11 K/uL (4.8-10.8)
[2020-05-23 08:00] LABS: BUN Creatinine Ratio 15.8 (10-20); Creatinine Clr Calc Pharmacy 93.8 ml/min; Est GFR (African American) 109.5; Est GFR (Non-African American) 94.5; Potassium 3.7 mmol/L (3.5-5.1)
[2020-05-23 08:07] LABS: Basophils # (auto) 0.07 K/uL (0-0.2); Basophils % (auto) 0.6 %; Eosinophils # (auto) 0.42 K/uL (0-0.5); Eosinophils % (auto) 3.5 %; Immature Granulocytes # (auto) 0.03 K/uL (0.00-0.02); Immature Granulocytes % (auto) 0.2 %; Lymphocytes # (auto) 5.08 K/uL (1.2-3.4); Lymphocytes % (auto) 41.9 %; Monocytes % (auto) 12.4 %; Neutrophils # (auto) 5.01 K/uL (1.4-6.5); Neutrophils % (auto) 41.4 %
[2020-05-23 08:10] LABS: Thyroid Stimulating Hormone 3.71 uIu/ml (0.300-4.500)
--- NOTE | 2020-05-23 08:11 | Ophthalmology Consultation ---
Date of Consultation May 23, 2020 Requested By: [facility] History of Present Illness: 50 year old female seen at bedside. Acute loss of partial peripheral vision OD Sunday evening. Denies jaw claudication/PLUMMER. Denies floaters/flashes. [place] like prior ocular migraine but did not go away. No change in deficit since. CC: acute loss of vision Vision: decreased peripheral Location (of CC): OD Quality/Severity: severe Duration: 2 days Timing: sudden Context: nonspecific Associated Signs/Symptoms: none Modifying Factors: none No other eye complaints. Mood and Affect: normal Past Ocular History: Right Eye: 1. glasses Left Eye: 1. glasses Medications: see EMR Relevant Past Medical History: see EMR [facility] sc Near Card OD: 20/25 OS: 20/25 IOP: 26 OD 28 OS by [place] VF: Superior and nasal deficite OD; full to count fingers OS Motility: full OU no RAPD OU External: The ocular adnexae are unremarkable. SLE: Lids/Lashes: wnl OU Conjunctiva/Sclera: quiet OU Cornea: clear OU Anterior Chamber: deep and quiet OU Iris: normal OU; no NVI OU Lens: trace NSC OU Dilated fundus exam OD: (pharm dilated with phenylephrine 2.5% and tropicamide 1%) vitreous: clear optic nerve: 0.2, no edema/pallor/NVD macula: wnl vessels: BRAO IT arcade w/ large HH plaque approx 1 DD from ON midperiphery: IT retinal whitening c/w BRAO periphery: no RT/RD Dilated fundus exam OS: vitreous: clear optic nerve: 0.2, no edema/pallor/NVD macula: wnl vessels: wnl midperiphery: wnl periphery: no RT/RD Assessment and Plan: 1. Branch Retinal Artery Occlusion OD -plaque in inferior temporal arcade -source of plaque carotid or cardiac -pt w/ CAD s/p CABG, also has cardiac valve dz -had carotid imaging 05/22/20 which showed moderate plaque right carotid -recommend cardiac imaging to r/o potential cardiac source Follow-Up: -4 weeks ophthalmology outpt clinic Ravin Toney DO Assessment & Plan (1) Branch retinal artery occlusion of right eye: Present on Admission?: Yes History of Present Illness Attending Physician: Naeem Gonzalez MD Allergies Allergy/AdvReac Type Severity Reaction Status Date / Time Penicillins Allergy Severe SOB, HIVES Verified 05/22/20 09:55 fentanyl Allergy Intermediate ITCHY HIVES Verified 05/22/20 09:55 morphine Allergy Intermediate ITCHY HIVES Verified 05/22/20 09:55 adhesive Allergy Mild LOCAL Verified 05/22/20 09:55 HIVE/RASH NITRO AdvReac Intermediate profuse Uncoded 05/22/20 09:55 vomiting increases heart rate Home Medications Home Medications Medication Instructions Recorded Confirmed Type ibuprofen [Advil] 600 mg PO DIRECTED PRN 10/22/18 05/22/20 History metoprolol succinate 100 mg PO BID 10/22/18 05/22/20 History omeprazole 20 mg PO DAILY 10/22/18 05/22/20 History rosuvastatin [Crestor] 40 mg PO HS 10/22/18 05/22/20 History levothyroxine 25 mcg PO DAILYBB 02/29/20 05/22/20 History aspirin [Aspirin Low-Strength] 81 mg PO DAILY 05/22/20 05/22/20 History sertraline 25 mg PO QPM 05/22/20 05/22/20 History Patient History Medical History (Updated 05/23/20 @ 08:42 by Samy Toney DO) CAD (coronary artery disease) GERD (gastroesophageal reflux disease) History of cervical cancer History of uterine cancer HLD (hyperlipidemia) Hodgkin disease IMPRESSION: 1. No consolidation identified. 2. Nonspecific mild reticulonodular interstitial thickening within the lungs Migraine Paroxysmal A-fib Surgical History (Updated 05/22/20 @ 12:28 by Ludy Smith PA-C) History of bone marrow biopsy History of hysterectomy History of pneumonectomy History of splenectomy History of tonsillectomy Hx of CABG x 3 2005 Family History Brother Coronary heart disease, Onset Age: 40 Father Coronary heart disease CABG Mother Breast cancer Hypertension Social History Smoking Status: Never smoker Tobacco Type: Cigarettes Second Hand Exposure: No; Hx Alcohol Use: No Hx Substance Use: No Preferred Language: Pashto Communication Ability: Effective Director Microbiology Required: No Beliefs That Will Affect Care: None Current Living Situation: Spouse Other Information That Helps Us Care for You: No Feels Safe at Home: Yes Assistive Devices: Glasses Results & Data ([facility]) Vital Signs (Past 12 Hours) Vital Signs Temp Pulse Resp BP BP Pulse Ox 05/23/20 07:00 36.7 C 76 18 109/68 98 05/23/20 04:00 36.7 C 77 18 107/67 97 05/22/20 23:05 37.3 C 77 18 120/69 98
[2020-05-23] MEDS: PANTOprazole 40 MG TAB PO SCH (08:52)
[2020-05-23] MEDS: CLOPIDOGREL BISULFATE 75 MG TAB PO SCH (08:52)
[2020-05-23] MEDS: METOPROLOL SUCC 50MG EXT REL TAB PO SCH ×2 (08:52→20:08)
[2020-05-23] MEDS: ASPIRIN 81 MG ECTAB PO SCH (08:52)
[2020-05-23] MEDS ORDERED: *Start* Heparin IV Low Dose SCH (09:38)
--- NOTE | 2020-05-23 09:44 | Hospitalist Progress Note ---
Date of Service May 23, 2020 Assessment & Plan Admission and Anticipated Discharge Date Admission Date: May 22, 2020 Subjective Discussed findings of ophthalmologic exam with Dr. Toney. Recommend further cardiac imaging regarding possible cardiac source/calcification. Discussed this with Dr. Tse, plan for SHAILA tomorrow, starting IV heparin now for history of A. fib. Patient will need COVID test for SHAILA. Also recommends to consult vascular surgery for internal carotid plaque. Dr. Melton notified, plans to see the patient tomorrow. Results & Data Results & Data ([facility]) Vital Signs (Past 12 Hours) Vital Signs Temp Pulse Pulse Resp BP BP Pulse Ox 05/23/20 07:30 71 05/23/20 07:00 36.7 C 76 18 109/68 98 05/23/20 04:00 36.7 C 77 18 107/67 97 05/22/20 23:05 37.3 C 77 18 120/69 98
[2020-05-23] MEDS ORDERED: HEPARIN IV BOLUS 4,000 UNITS in SYRINGE 0 ML IV ONE (10:00)
[2020-05-23] MEDS ORDERED: Heparin Adult LOW DOSE Wt-Based Dextrose 5% 25,000 units/500 mL IV SCH (10:00)
--- NOTE | 2020-05-23 10:37 | Hospitalist Progress Note ---
Date of Service May 23, 2020 Assessment & Plan (1) Visual changes: Branch retinal artery occlusion This is a 50-year-old female who has significant past medical history of CAD with history of CABG x3 in 2005, 1 document episode of PAF, mild aortic valve stenosis, HTN, history of Hodgkin's lymphoma, history of uterine CA who presents to ED secondary to right eye visual changes starting at 9 PM last evening prior to admission. Came to ER with symptoms of sudden onset of visual change on right, Around 9 PM last night patient experienced as if a curtain dropped down covering have of her right visual field, Denies of any headache, no eye pain, no weakness or paresthesia In the ER patient continues to have visual symptoms, CT head noncontrast no acute change, CTA of neck shows right carotid artery plaques High risk for acute CVA, patient's was on aspirin 81 mg daily started with Plavix, continue high intensity statin MRI of brain ordered Neurology consult fasting lipid panel, a1c visual acuity consult neurology PT/OT/ST echocardiogram pt has hx of ocular migraine - this is different, need to rule out embolic event vs other intracranial abnormality mild elevated H/H, ca+ - obtain ionized calcium, gentle IVF x 1 L 05/23/2020 Ophthalmology, Dr. Toney consulted, evaluated patient today, May 23, patient found to have Branch Retinal Artery Occlusion (BRAO) secondary to plaque in inferior temporal arcade, suspecting source of plaque likely to be cardiac or carotid Had a carotid imaging on May 22, on admission, which showed moderate plaque in the right carotid artery. Recommend cardiac imaging to rule out potential cardiac source and 4-week ophthalmology follow-up as outpatient. Patient had echocardiogram done on admission, May 22, discussed with cardiology, and it is appropriate to obtain SHAILA for more detailed exam, in addition patient has history of paroxysmal A. fib and therefore IV heparin will be started. Plavix which was just started, will be discontinued. Vascular surgery also notified regarding right carotid plaque. (2) Elevated troponin: no CP or ekG change may be in setting of [employer] event nonetheless will trend troponin, repeat ecg obtain echocardiogram (3) Leukocytosis: elevated wbc with relative lymphocytosis this is not new - follows oncology Dr. Caraballo for hodgkins lymphoma, hx of uterine/cerivcal ca - they are monitoring monitor (4) Coronary artery disease: hx of cabg x 3 in 2005 no cp or ecg change mild elevation in trop, plan as above on ASA, statin, metoprolol as outpt Pt does have mild aortic valve stenosis per recent echo 02/2020, EF 60-65%, grade 1 diastolic dysfunction (5) Carotid artery disease: CTA neck reveal Moderate plaque within the proximal right internal carotid artery and mild plaque within the proximal left internal coronary artery without significant stenosis Already on high intensity statin, asa Fasting lipid panel ordered Vascular surgery consulted neurology consulted (6) Paroxysmal A-fib: Known episode of PAF follows [facility]ology on ASA and metoprolol Discussed with Dr. Tse, recommend to start IV heparin (7) HLD (hyperlipidemia): continue statin (8) Hypothyroid: continue levothyroxine (9) Anxiety: continue zoloft (10) GERD (gastroesophageal reflux disease): continue PPI (11) DVT prophylaxis: SCD/TEDS, will start IV heparin Disposition: med tele Follow up: PCP Dr. De Leon upon discharge Follow-up with ophthalmology in 4 weeks recommended as well Admission and Anticipated Discharge Date Admission Date: May 23, 2020 Subjective Patient is currently lying in bed, in no acute distress. Denies any fevers, chills, chest pain, shortness of breath, abdominal pain, nausea or vomiting. Has vision deficit that she presented with to the hospital with. Seen by ophthalmology this morning. Results and further plan discussed in detail. Patient aware of plan for SHAILA tomorrow, and IV heparin starting now. Review of Systems Review of Systems: All systems reviewed & are unremarkable except as noted in HPI & below Constitutional: no fever and no chills Eyes: + blind spots (Right peripheral vision deficit) Respiratory: no cough and no dyspnea Cardiovascular: no chest pain and no palpitations Gastrointestinal: no abdominal pain, no nausea and no vomiting Physical Exam Physical Exam: Constitutional: WD/WN, F, vitals as above, in NAD, sitting up in bed, pleasant, conversing easily Head: Normocephalic, Atraumatic Eyes: EOMI, conjunctivae normal, anicteric sclerae, + right peripheral vision deficit ENMT: external ear and nose normal, oropharynx normal Neck: trachea midline, no thyromegaly normal visual inspection Respiratory: normal respiratory effort, lungs clear to auscultation, no wheeze, rales, rhonchi. Normal insp/exp effort, no accessory muscle use Cardiovascular: RRR, 2/6 JODY noted RUSB with radiation to cardiac apex, no edema Vessels: no JVD or carotid bruit Chest: normal inspection of chest Abdomen: normal bowel sounds, soft, nontender Musculoskeletal: no cyanosis or clubbing, extremities motor strength 5/5 Skin: no rashes, warm and dry normal turgor Neurologic: EOMI, no face palsy, no dysarthria, + right peripheral vision deficit, moves all extremities Psychiatric: A+Ox3, tearful, euthymic affect Results & Data Results & Data ([facility]) Vital Signs (Past 12 Hours) Vital Signs Temp Pulse Pulse Resp BP BP Pulse Ox 05/23/20 07:30 71 05/23/20 07:00 36.7 C 76 18 109/68 98 05/23/20 04:00 36.7 C 77 18 107/67 97 05/22/20 23:05 37.3 C 77 18 120/69 98 Laboratory Results 05/23/20 05/23/20 05/23/20 Range/Units 07:30 07:00 07:00 WBC (4.8-10.8) K/uL RBC (4.2-5.4) M/uL Hgb (12.0-16.0) g/dL POC Hgb (12.0-16.0) g/dl Hct (37-47) % POC Hct (37-47) % MCV (80-100) fL MCH (25-34) pg MCHC (32-36) g/dL RDW Std Deviation (36.4-46.3) fL RDW Coeff of Prosper (11.5-14.5) % Plt Count (130-400) K/uL MPV (7.4-10.4) fL Immature Gran % (Auto) % Neut % (Auto) % Lymph % (Auto) % Pike % (Auto) % Eos % (Auto) % Baso % (Auto) % Neut # (Auto) (1.4-6.5) K/uL Lymph # (Auto) (1.2-3.4) K/uL Pike # (Auto) (0.11-0.59) K/uL Eos # (Auto) (0-0.5) K/uL Baso # (Auto) (0-0.2) K/uL Immature Gran # (Auto) (0.00-0.02) K/uL ESR (0-21) mm/hr PT (9.0-12.0) Seconds INR (0.9-1.1) APTT (21.0-31.0) Seconds PTT Ratio POC Sodium (135-144) mmol/L Sodium 142 (136-145) mmol/L POC Potassium (3.3-5.0) mmol/L Potassium 3.7 (3.5-5.1) mmol/L POC Chloride (101-112) mmol/L Chloride 109 H (98-107) mmol/L Carbon Dioxide 28 (21-32) mmol/L POC Total CO2 (24-31) mmol/L Anion Gap 4.0 (3-11) POC Anion Gap (16-25) mmol/L POC BUN (7-18) mg/dl BUN 12 (7-18) mg/dl Creatinine 0.74 (0.6-1.2) mg/dl POC Creatinine (0.6-1.3) mg/dl Est Cr Clr Drug Dosing 93.8 ml/min Est GFR ( Amer) 109.5 Est GFR (Non-Af Amer) 94.5 BUN/Creatinine Ratio 15.8 (10-20) Glucose 91 (70-99) mg/dl POC Glucose 99 (70-99) mg/dl POC Glucose (other) (70-99) mg/dl Estimat Average Glucose Pending Hemoglobin A1c Pending Calcium 10.0 (8.5-10.1) mg/dl POC Ioniz Calcium Ashly (1.12-1.32) mmol/l Ionized Calcium (1.12-1.32) mmol/L Magnesium (1.8-2.4) mg/dl Total Bilirubin (0.2-1) mg/dl AST (15-37) U/L ALT (12-78) U/L Alkaline Phosphatase (45-117) U/L Troponin I (0-0.045) ng/ml C-Reactive Protein (0-0.29) mg/dl Total Protein (6.4-8.2) gm/dl Albumin (3.4-5.0) gm/dl Globulin (2.5-4.0) gm/dl Albumin/Globulin Ratio (0.9-2) Triglycerides 117 (0-150) mg/dl Cholesterol 148 (0-200) mg/dl LDL Cholesterol, Calc 72 mg/dl VLDL Cholesterol, Calc 23 mg/dl HDL Cholesterol 53 mg/dl Cholesterol/HDL Ratio 3 TSH 3.710 (0.300-4.500) uIu/ml 05/23/20 05/22/20 05/22/20 Range/Units 07:00 21:50 15:31 WBC 12.11 H (4.8-10.8) K/uL RBC 4.49 (4.2-5.4) M/uL Hgb 14.2 (12.0-16.0) g/dL POC Hgb (12.0-16.0) g/dl Hct 43.5 (37-47) % POC Hct (37-47) % MCV 96.9 (80-100) fL MCH 31.6 (25-34) pg MCHC 32.6 (32-36) g/dL RDW Std Deviation 49.0 H (36.4-46.3) fL RDW Coeff of Prosper 13.8 (11.5-14.5) % Plt Count 370 (130-400) K/uL MPV 10.8 H (7.4-10.4) fL Immature Gran % (Auto) 0.2 % Neut % (Auto) 41.4 % Lymph % (Auto) 41.9 % Pike % (Auto) 12.4 % Eos % (Auto) 3.5 % Baso % (Auto) 0.6 % Neut # (Auto) 5.01 (1.4-6.5) K/uL Lymph # (Auto) 5.08 H (1.2-3.4) K/uL Pike # (Auto) 1.50 H (0.11-0.59) K/uL Eos # (Auto) 0.42 (0-0.5) K/uL Baso # (Auto) 0.07 (0-0.2) K/uL Immature Gran # (Auto) 0.03 H (0.00-0.02) K/uL ESR (0-21) mm/hr PT (9.0-12.0) Seconds INR (0.9-1.1) APTT (21.0-31.0) Seconds PTT Ratio POC Sodium (135-144) mmol/L Sodium (136-145) mmol/L POC Potassium (3.3-5.0) mmol/L Potassium (3.5-5.1) mmol/L POC Chloride (101-112) mmol/L Chloride (98-107) mmol/L Carbon Dioxide (21-32) mmol/L POC Total CO2 (24-31) mmol/L Anion Gap (3-11) POC Anion Gap (16-25) mmol/L POC BUN (7-18) mg/dl BUN (7-18) mg/dl Creatinine (0.6-1.2) mg/dl POC Creatinine (0.6-1.3) mg/dl Est Cr Clr Drug Dosing ml/min Est GFR ( Amer) Est GFR (Non-Af Amer) BUN/Creatinine Ratio (10-20) Glucose (70-99) mg/dl POC Glucose (70-99) mg/dl POC Glucose (other) (70-99) mg/dl Estimat Average Glucose Hemoglobin A1c Calcium (8.5-10.1) mg/dl POC Ioniz Calcium Ashly (1.12-1.32) mmol/l Ionized Calcium (1.12-1.32) mmol/L Magnesium (1.8-2.4) mg/dl Total Bilirubin (0.2-1) mg/dl AST (15-37) U/L ALT (12-78) U/L Alkaline Phosphatase (45-117) U/L Troponin I 0.029 0.061 H* (0-0.045) ng/ml C-Reactive Protein (0-0.29) mg/dl Total Protein (6.4-8.2) gm/dl Albumin (3.4-5.0) gm/dl Globulin (2.5-4.0) gm/dl Albumin/Globulin Ratio (0.9-2) Triglycerides (0-150) mg/dl Cholesterol (0-200) mg/dl LDL Cholesterol, Calc mg/dl VLDL Cholesterol, Calc mg/dl HDL Cholesterol mg/dl Cholesterol/HDL Ratio TSH (0.300-4.500) uIu/ml 05/22/20 05/22/20 05/22/20 Range/Units 14:19 10:25 10:25 WBC (4.8-10.8) K/uL RBC (4.2-5.4) M/uL Hgb (12.0-16.0) g/dL POC Hgb (12.0-16.0) g/dl Hct (37-47) % POC Hct (37-47) % MCV (80-100) fL MCH (25-34) pg MCHC (32-36) g/dL RDW Std Deviation (36.4-46.3) fL RDW Coeff of Prosper (11.5-14.5) % Plt Count (130-400) K/uL MPV (7.4-10.4) fL Immature Gran % (Auto) % Neut % (Auto) % Lymph % (Auto) % Pike % (Auto) % Eos % (Auto) % Baso % (Auto) % Neut # (Auto) (1.4-6.5) K/uL Lymph # (Auto) (1.2-3.4) K/uL Pike # (Auto) (0.11-0.59) K/uL Eos # (Auto) (0-0.5) K/uL Baso # (Auto) (0-0.2) K/uL Immature Gran # (Auto) (0.00-0.02) K/uL ESR 18 (0-21) mm/hr PT (9.0-12.0) Seconds INR (0.9-1.1) APTT (21.0-31.0) Seconds PTT Ratio POC Sodium (135-144) mmol/L Sodium (136-145) mmol/L POC Potassium (3.3-5.0) mmol/L Potassium (3.5-5.1) mmol/L POC Chloride (101-112) mmol/L Chloride (98-107) mmol/L Carbon Dioxide (21-32) mmol/L POC Total CO2 (24-31) mmol/L Anion Gap (3-11) POC Anion Gap (16-25) mmol/L POC BUN (7-18) mg/dl BUN (7-18) mg/dl Creatinine (0.6-1.2) mg/dl POC Creatinine (0.6-1.3) mg/dl Est Cr Clr Drug Dosing ml/min Est GFR ( Amer) Est GFR (Non-Af Amer) BUN/Creatinine Ratio (10-20) Glucose (70-99) mg/dl POC Glucose (70-99) mg/dl POC Glucose (other) (70-99) mg/dl Estimat Average Glucose Hemoglobin A1c Calcium (8.5-10.1) mg/dl POC Ioniz Calcium Ashly (1.12-1.32) mmol/l Ionized Calcium 1.21 (1.12-1.32) mmol/L Magnesium (1.8-2.4) mg/dl Total Bilirubin (0.2-1) mg/dl AST (15-37) U/L ALT (12-78) U/L Alkaline Phosphatase (45-117) U/L Troponin I (0-0.045) ng/ml C-Reactive Protein 0.31 H (0-0.29) mg/dl Total Protein (6.4-8.2) gm/dl Albumin (3.4-5.0) gm/dl Globulin (2.5-4.0) gm/dl Albumin/Globulin Ratio (0.9-2) Triglycerides (0-150) mg/dl Cholesterol (0-200) mg/dl LDL Cholesterol, Calc mg/dl VLDL Cholesterol, Calc mg/dl HDL Cholesterol mg/dl Cholesterol/HDL Ratio TSH (0.300-4.500) uIu/ml 05/22/20 05/22/20 05/22/20 Range/Units 10:25 10:25 10:25 WBC 13.99 H (4.8-10.8) K/uL RBC 4.93 (4.2-5.4) M/uL Hgb 15.3 (12.0-16.0) g/dL POC Hgb (12.0-16.0) g/dl Hct 47.8 H (37-47) % POC Hct (37-47) % MCV 97.0 (80-100) fL MCH 31.0 (25-34) pg MCHC 32.0 (32-36) g/dL RDW Std Deviation 48.7 H (36.4-46.3) fL RDW Coeff of Prosper 13.8 (11.5-14.5) % Plt Count 403 H (130-400) K/uL MPV 10.9 H (7.4-10.4) fL Immature Gran % (Auto) 0.1 % Neut % (Auto) 53.1 % Lymph % (Auto) 31.6 % Pike % (Auto) 11.4 % Eos % (Auto) 3.2 % Baso % (Auto) 0.6 % Neut # (Auto) 7.43 H (1.4-6.5) K/uL Lymph # (Auto) 4.42 H (1.2-3.4) K/uL Pike # (Auto) 1.59 H (0.11-0.59) K/uL Eos # (Auto) 0.45 (0-0.5) K/uL Baso # (Auto) 0.08 (0-0.2) K/uL Immature Gran # (Auto) 0.02 (0.00-0.02) K/uL ESR (0-21) mm/hr PT 10.6 (9.0-12.0) Seconds INR 1.0 (0.9-1.1) APTT 27.4 (21.0-31.0) Seconds PTT Ratio 1.0 POC Sodium (135-144) mmol/L Sodium 142 (136-145) mmol/L POC Potassium (3.3-5.0) mmol/L Potassium 3.9 (3.5-5.1) mmol/L POC Chloride (101-112) mmol/L Chloride 108 H (98-107) mmol/L Carbon Dioxide 30 (21-32) mmol/L POC Total CO2 (24-31) mmol/L Anion Gap 4.0 (3-11) POC Anion Gap (16-25) mmol/L POC BUN (7-18) mg/dl BUN 12 (7-18) mg/dl Creatinine 0.80 (0.6-1.2) mg/dl POC Creatinine (0.6-1.3) mg/dl Est Cr Clr Drug Dosing 87.0 ml/min Est GFR ( Amer) 99.6 Est GFR (Non-Af Amer) 86.0 BUN/Creatinine Ratio 15.3 (10-20) Glucose 102 H (70-99) mg/dl POC Glucose (70-99) mg/dl POC Glucose (other) (70-99) mg/dl Estimat Average Glucose Hemoglobin A1c Calcium 10.3 H (8.5-10.1) mg/dl POC Ioniz Calcium Ashly (1.12-1.32) mmol/l Ionized Calcium (1.12-1.32) mmol/L Magnesium 2.2 (1.8-2.4) mg/dl Total Bilirubin 0.5 (0.2-1) mg/dl AST 33 (15-37) U/L ALT 47 (12-78) U/L Alkaline Phosphatase 123 H (45-117) U/L Troponin I 0.100 H* (0-0.045) ng/ml C-Reactive Protein (0-0.29) mg/dl Total Protein 8.1 (6.4-8.2) gm/dl Albumin 4.0 (3.4-5.0) gm/dl Globulin 4.1 H (2.5-4.0) gm/dl Albumin/Globulin Ratio 1.0 (0.9-2) Triglycerides (0-150) mg/dl Cholesterol (0-200) mg/dl LDL Cholesterol, Calc mg/dl VLDL Cholesterol, Calc mg/dl HDL Cholesterol mg/dl Cholesterol/HDL Ratio TSH (0.300-4.500) uIu/ml 10//20 Range/Units 10:23 WBC (4.8-10.8) K/uL RBC (4.2-5.4) M/uL Hgb (12.0-16.0) g/dL POC Hgb 16.0 (12.0-16.0) g/dl Hct (37-47) % POC Hct 47 (37-47) % MCV (80-100) fL MCH (25-34) pg MCHC (32-36) g/dL RDW Std Deviation (36.4-46.3) fL RDW Coeff of Prosper (11.5-14.5) % Plt Count (130-400) K/uL MPV (7.4-10.4) fL Immature Gran % (Auto) % Neut % (Auto) % Lymph % (Auto) % Pike % (Auto) % Eos % (Auto) % Baso % (Auto) % Neut # (Auto) (1.4-6.5) K/uL Lymph # (Auto) (1.2-3.4) K/uL Pike # (Auto) (0.11-0.59) K/uL Eos # (Auto) (0-0.5) K/uL Baso # (Auto) (0-0.2) K/uL Immature Gran # (Auto) (0.00-0.02) K/uL ESR (0-21) mm/hr PT (9.0-12.0) Seconds INR (0.9-1.1) APTT (21.0-31.0) Seconds PTT Ratio POC Sodium 143 (135-144) mmol/L Sodium (136-145) mmol/L POC Potassium 4.0 (3.3-5.0) mmol/L Potassium (3.5-5.1) mmol/L POC Chloride 104 (101-112) mmol/L Chloride (98-107) mmol/L Carbon Dioxide (21-32) mmol/L POC Total CO2 27 (24-31) mmol/L Anion Gap (3-11) POC Anion Gap 17.0 (16-25) mmol/L POC BUN 12 (7-18) mg/dl BUN (7-18) mg/dl Creatinine (0.6-1.2) mg/dl POC Creatinine 0.6 (0.6-1.3) mg/dl Est Cr Clr Drug Dosing ml/min Est GFR ( Amer) Est GFR (Non-Af Amer) BUN/Creatinine Ratio (10-20) Glucose (70-99) mg/dl POC Glucose (70-99) mg/dl POC Glucose (other) 105 H (70-99) mg/dl Estimat Average Glucose Hemoglobin A1c Calcium (8.5-10.1) mg/dl POC Ioniz Calcium Ashly 1.31 (1.12-1.32) mmol/l Ionized Calcium (1.12-1.32) mmol/L Magnesium (1.8-2.4) mg/dl Total Bilirubin (0.2-1) mg/dl AST (15-37) U/L ALT (12-78) U/L Alkaline Phosphatase (45-117) U/L Troponin I (0-0.045) ng/ml C-Reactive Protein (0-0.29) mg/dl Total Protein (6.4-8.2) gm/dl Albumin (3.4-5.0) gm/dl Globulin (2.5-4.0) gm/dl Albumin/Globulin Ratio (0.9-2) Triglycerides (0-150) mg/dl Cholesterol (0-200) mg/dl LDL Cholesterol, Calc mg/dl VLDL Cholesterol, Calc mg/dl HDL Cholesterol mg/dl Cholesterol/HDL Ratio TSH (0.300-4.500) uIu/ml Medications Administered Current Inpatient Medications Acetaminophen (Acetaminophen 325 Mg Tab) 650 mg PO Q4H PRN PRN Reason: Pain or Fever Stop: 06/21/20 14:19 Last Admin: 05/22/20 15:41 Dose: 650 mg Documented by: Al Hydrox/Mg Hydrox/Simethicone (Aluminum/Magnesium Susp 30 Ml Udc) 15 ml PO Q4H PRN PRN Reason: Dyspepsia Stop: 06/21/20 14:19 Aspirin (Aspirin 81 Mg Ectab) 81 mg PO DAILY [facility] Stop: 06/22/20 08:59 Last Admin: 05/23/20 08:52 Dose: 81 mg Documented by: Heparin Sodium/Dextrose (Heparin Sodium/Dextrose) 25,000 units in 500 mls @ 16 mls/hr IV .Q24H RSOELIA; Protocol Stop: 06/22/20 09:59 Levothyroxine Sodium (Levothyroxine Sodium 25 Mcg Tablet) 25 mcg PO DAILYBB [facility] Stop: 06/22/20 06:29 Last Admin: 05/23/20 06:42 Dose: 25 mcg Documented by: Magnesium Hydroxide (Magnesium Hydroxide Susp 30 Ml Udc) 30 ml PO Q12H PRN PRN Reason: Constipation Stop: 06/21/20 14:19 Metoprolol Succinate (Metoprolol Succ 50mg Ext Rel Tab) 100 mg PO BID [facility] Stop: 06/21/20 20:59 Last Admin: 05/23/20 08:52 Dose: 100 mg Documented by: Miscellaneous Information (Pharmacist Discharge Med Rec Consult) 1 ea N/A UD PRN PRN Reason: Consult Stop: 06/21/20 14:19 Ondansetron HCl (Ondansetron Inj 2 Mg/Ml 2 Ml Vial) 4 mg IV Q6H PRN PRN Reason: Nausea Stop: 06/21/20 14:19 Pantoprazole Sodium (Pantoprazole 40 Mg Tab) 40 mg PO DAILY [facility] Stop: 06/22/20 08:59 Last Admin: 05/23/20 08:52 Dose: 40 mg Documented by: Polyethylene Glycol (Polyethylene (Miralax) 17 Gm Pack) 17 gm PO DAILY PRN PRN Reason: Constipation Stop: 06/21/20 14:19 Rosuvastatin Calcium (Rosuvastatin Calcium 20 Mg Tab) 40 mg PO HS [facility] Stop: 11/09/20 20:59 Last Admin: 05/22/20 20:52 Dose: 40 mg Documented by: Sertraline HCl (Sertraline Hcl 50 Mg Tablet) 25 mg PO DAILY@1830 [facility] Stop: 06/21/20 18:29 Last Admin: 05/22/20 18:25 Dose: 25 mg Documented by: (1) Carotid artery disease Carotid artery disease type: unspecified Laterality: right Qualified Code(s): I77.9 - Disorder of arteries and arterioles, unspecified
[2020-05-23 11:11] LABS: Hematocrit (blood only) 43.2 % (37-47); Hemoglobin 14.4 g/dL (12.0-16.0); Mean Corpuscular Hemoglobin 31.9 pg (25-34); Mean Corpuscular Volume 95.8 fL (80-100); Mean Platelet Volume 11.1 fL (7.4-10.4); Platelet Count 361 K/uL (130-400); RDW Coefficient of Variation 13.6 % (11.5-14.5); RDW Standard Deviation 47.8 fL (36.4-46.3); Red Blood Count 4.51 M/uL (4.2-5.4); White Blood Count 12.83 K/uL (4.8-10.8)
[2020-05-23 11:17] LABS: Mean Corpuscular Hgb Conc 33.3 g/dL (32-36)
[2020-05-23 11:28] LABS: Basophils # (auto) 0.04 K/uL (0-0.2); Basophils % (auto) 0.3 %; Eosinophils # (auto) 0.29 K/uL (0-0.5); Eosinophils % (auto) 2.3 %; Immature Granulocytes # (auto) 0.04 K/uL (0.00-0.02); Immature Granulocytes % (auto) 0.3 %; Lymphocytes # (auto) 5.38 K/uL (1.2-3.4); Lymphocytes % (auto) 41.9 %; Monocytes # (auto) 1.42 K/uL (0.11-0.59); Monocytes % (auto) 11.1 %; Neutrophils # (auto) 5.66 K/uL (1.4-6.5); Neutrophils % (auto) 44.1 %
[2020-05-23 12:08] LABS: INR 1.1 (0.9-1.1); Prothrombin Time 11.9 Seconds (9.0-12.0)
[2020-05-23 12:10] LABS: Partial Thromboplastin Ratio > 5.0
[2020-05-23 12:11] LABS: Partial Thromboplastin Time > 139.0 Seconds (21.0-31.0)
--- NOTE | 2020-05-23 12:25 | Electrocardiogram Report ---
Test Reason : Blood Pressure : / mmHG Vent. Rate : 074 BPM Atrial Rate : 074 BPM P-R Int : 178 ms QRS Dur : 092 ms QT Int : 430 ms P-R-T Axes : 056 -40 065 degrees QTc Int : 477 ms Normal sinus rhythm Left axis deviation Abnormal ECG When compared with ECG of 22-MAY-2020 10:16, No significant change was found Confirmed by Shiv Kim ([id number]) on 05/23/2020 12:25:53 PM Referred By: REFERRED SELF Confirmed By:Shiv Kim
--- NOTE | 2020-05-23 13:12 | Cardiology Consultation ---
Date of Consultation May 23, 2020 Assessment & Plan (1) Branch retinal artery occlusion of right eye: The patient's event has taken place with her already on aspirin 81 mg daily as well as rosuvastatin 40 mg daily. Her LDL cholesterol as measured this morning was 72 mg/dL. I discussed her eye exam findings with Dr. Toney via secure provider to provider [place] [employer], and the retina findings on his exam suggest cholesterol plaque or calcific plaque with a more white and yellow appearance (suggestive of calcific) but certainly this finding suggests against thrombotic etiology. This is of course of importance because the patient has a history of a past documented episode of atrial fibrillation noted in 2018, without recurrence documented on to long-term groundwater monitoring technician was performed October, as an outpatient and again in October 2019. No atrial fibrillation has been detected on telemetry or EKG thus far this admission. As noted the patient has a history of radiation therapy, and calcific embolism from mitral annular calcification, or aortic valve calcification are possi bilities. She of course has nonobstructive right carotid plaque as noted, and could very well have atheromatous disease in her ascending aorta. The patient has tentatively been placed on aspirin and low-dose heparin pending further evaluation due to my concerns of her history of atrial fibrillation. Pending further assessment to include transesophageal echocardiogram, and may prove that antiplatelet therapy with aspirin plus clopidogrel is the preferred treatment for her. I would however like to proceed with ongoing telemetry monitoring, and transesophageal echocardiogram for investigation of the left atrial appendage to exclude thrombus, for visualization of her valves, and for visualization of the descending thoracic aorta. We will plan to make the patient n.p.o. after midnight, and consulting anesthesiology. COVID-19 SARS-CoV-2 RNA test was performed this morning and was negative. Case discussed with Dr. Domingo of neurology. History of Present Illness Attending Physician: Naeem Gonzalez MD History of Present Illness Herminia Unger is a 50 year old female seen in cardiology consultation per the request of Dr Gonzalez for the evaluation of cardiac source of embolism. The patient is well-known to the undersigned as I follow her as an outpatient. Her most recent outpatient visit had been in October, at which time stable cardiac signs and symptoms were noted. She has a history of aggressive early onset atherosclerotic coronary heart disease likely related to past Hodgkin's disease with mantle radiation. 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 In the evening 2 days ago she had onset of a right-sided visual deficit. It persisted throughout the day yesterday, prompting her to come to the emergency room. CT of the brain revealed no acute intracranial findings. MRI of the brain revealed no acute intracranial findings. CT angiogram of the neck vessels revealed moderate atherosclerotic plaque within the proximal right internal carotid artery and mild plaque within the proximal left internal carotid artery without significant stenosis. Patient was seen in consultation by ophthalmology today, with findings of a right branch retinal artery occlusion with exam suggestive of a Hollenhorst plaque which would suggest atherosclerotic embolism, rather than thrombus. Allergies Allergy/AdvReac Type Severity Reaction Status Date / Time Penicillins Allergy Severe SOB, HIVES Verified 05/22/20 09:55 fentanyl Allergy Intermediate ITCHY HIVES Verified 05/22/20 09:55 morphine Allergy Intermediate ITCHY HIVES Verified 05/22/20 09:55 adhesive Allergy Mild LOCAL Verified 05/22/20 09:55 HIVE/RASH nitroglycerin AdvReac Intermediate profuse Verified 05/23/20 09:58 vomiting increases heart rate Home Medications Home Medications Medication Instructions Recorded Confirmed Type ibuprofen [Advil] 600 mg PO DIRECTED PRN 10/22/18 05/22/20 History metoprolol succinate 100 mg PO BID 10/22/18 05/22/20 History omeprazole 20 mg PO DAILY 10/22/18 05/22/20 History rosuvastatin [Crestor] 40 mg PO HS 10/22/18 05/22/20 History levothyroxine 25 mcg PO DAILYBB 02/29/20 05/22/20 History aspirin [Aspirin Low-Strength] 81 mg PO DAILY 05/22/20 05/22/20 History sertraline 25 mg PO QPM 05/22/20 05/22/20 History Patient History Medical History CAD (coronary artery disease) GERD (gastroesophageal reflux disease) History of cervical cancer History of uterine cancer HLD (hyperlipidemia) Hodgkin disease IMPRESSION: 1. No consolidation identified. 2. 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 Beliefs That Will Affect Care: None marital status: Current Living Situation: Spouse Other Information That Helps Us Care for You: No Feels Safe at Home: Yes Assistive Devices: Glasses Review of Systems Review of Systems: All systems reviewed & are unremarkable except as noted in HPI & below Physical Exam Physical Exam: Temp Pulse Resp BP Pulse Ox 37.2 C 82 18 138/79 96 05/23/20 11:00 05/23/20 11:00 05/23/20 11:00 05/23/20 11:00 05/23/20 11:00 Constitutional: WD/WN, vitals as above Respiratory: normal respiratory effort, lungs clear to auscultation Cardiovascular: Rate/Rhythm: regular rate Heart Sounds: + murmur (1/6 systolic murmur) Vessels: + JVD Neurologic: PERRL, EOMI, accommodation nl, no face palsy, no dysarthria Results & Data ([facility]) Vital Signs (Past 12 Hours) Vital Signs Temp Pulse Pulse Resp BP BP Pulse Ox 05/23/20 11:00 37.2 C 82 18 138/79 96 05/23/20 07:30 71 05/23/20 07:00 36.7 C 76 18 109/68 98 05/23/20 04:00 36.7 C 77 18 107/67 97 Laboratory Results Cardiac Enzymes 05/22/20 05/22/20 Range/Units 15:31 21:50 Troponin I 0.061 H* 0.029 (0-0.045) ng/ml Coagulation 05/23/20 Range/Units 10:44 PT 11.9 (9.0-12.0) Seconds APTT > 139.0 H* (21.0-31.0) Seconds Lipids 05/23/20 Range/Units 07:00 Triglycerides 117 (0-150) mg/dl Cholesterol 148 (0-200) mg/dl HDL Cholesterol 53 mg/dl Cholesterol/HDL Ratio 3 CBC 05/23/20 05/23/20 Range/Units 07:00 10:44 WBC 12.11 H 12.83 H (4.8-10.8) K/uL RBC 4.49 4.51 (4.2-5.4) M/uL Hgb 14.2 14.4 (12.0-16.0) g/dL Hct 43.5 43.2 (37-47) % Plt Count 370 361 (130-400) K/uL Neut # (Auto) 5.01 5.66 (1.4-6.5) K/uL Lymph # (Auto) 5.08 H 5.38 H (1.2-3.4) K/uL Barry # (Auto) 1.50 H 1.42 H (0.11-0.59) K/uL Eos # (Auto) 0.42 0.29 (0-0.5) K/uL Baso # (Auto) 0.07 0.04 (0-0.2) K/uL Comprehensive Metabolic Panel 05/23/20 Range/Units 07:00 Sodium 142 (136-145) mmol/L Potassium 3.7 (3.5-5.1) mmol/L Chloride 109 H (98-107) mmol/L Carbon Dioxide 28 (21-32) mmol/L BUN 12 (7-18) mg/dl Creatinine 0.74 (0.6-1.2) mg/dl Glucose 91 (70-99) mg/dl Calcium 10.0 (8.5-10.1) mg/dl Intake and Output 05/22/20 05/23/20 05/23/20 22:59 06:59 14:59 Intake Total 500 / 1600 1100 / 1600 32.8 / 32.8 Output Total 150 / 150 Balance 350 / 1450 1100 / 1450 32.8 / 32.8 Intake: IV 1000 / 1000 32.8 / 32.8 HEPARIN SODIUM/DEXTROSE 25,000 32.8 / 32.8 units In 500 ml @ 800 UNITS/HR 16 mls/hr IV .Q24H ROSELIA Rx#: [id number] Nss 1000ML 1,000 ml @ 80 mls/hr 1000 / 1000 IV .[id number] ROSELIA Rx#:[id number] Oral 500 / 600 100 / 600 Output: Urine 150 / 150 Other: Weight 81.3 kg Weight Measurement Method Standing Scale Diagnostic Findings EKG performed 05/23/2020 and reviewed independently revealed sinus rhythm at 74 bpm, normal EKG EKG performed 05/22/2020, 10: 16 a.m. revealed normal sinus rhythm at 85 bpm mild nonspecific repolarization changes otherwise normal EKG Echocardiogram performed yesterday 05/22/2020 and reviewed independently revealed mild concentric left ventricular hypertrophy, normal LVEF, 55 to 60%, mild aortic valve calcification with mild aortic valve stenosis. Mild mitral vegetation, mild tricuspid regurgitation mild mitral annular calcification also noted.
--- NOTE | 2020-05-23 13:49 | Consultation Report ---
DATE: 05/23/2020 REASON FOR CONSULTATION: Binocular visual impairment. HISTORY OF PRESENT ILLNESS: The patient is a 50-year-old with accelerated atherosclerosis and hyperlipidemia. The patient is status post bypass surgery. She was in her usual state of health, Sunday evening was standing in the kitchen and noted a sudden obscuration of vision in the right eye, which crossed the midline in respect to the horizontal affecting nasal clay, more so than temporal. There were some minor brightness to this, but it was not typical for her scintillating visual phenomenon that she may have with an acephalgic migraine. She did not develop eye pain or headache and there were no other neurologic symptoms. She has not otherwise been ill. She has been having some physical therapy to her right shoulder where she is getting a TENS machine type treatment. She has not had any head or neck injury, chiropractic manipulation of the neck, chest pain, palpitation, shortness of breath. She has no personal history of DVT, PE. She has had Hodgkin's lymphoma twice and has had radiation in the neck and the chest. She has also had cervical cancer. The patient has a history of acephalgia migrainous phenomenon with scintillating visual phenomenon that is primarily in the right eye, lasting 10 minutes without any negative features and no following headache. Once or twice a month, she will get a throbbing unilateral headache without other neurologic symptoms. PAST MEDICAL HISTORY: As above, one episode of documented AFib, mild aortic valve stenosis, hypertension, Hodgkin's lymphoma, coronary artery disease, reflux. SURGICAL HISTORY: Bone marrow biopsy, hysterectomy pneumonectomy splenectomy, tonsillectomy, bypass surgery. FAMILY HISTORY: Strong family history of coronary artery disease. Mother with breast cancer, hypertension. SOCIAL HISTORY: Former smoker, does not drink alcohol. Works at [employer]. HOME MEDICATIONS: Ibuprofen, metoprolol, omeprazole, Crestor, levothyroxine, aspirin, sertraline. ALLERGIES: PENICILLIN, FENTANYL, MORPHINE, ADHESIVE AND NITROGLYCERIN. LABORATORY DATA: Her white count is 12.8, H and H 14/43, platelet count 361. PT, PTT are pending. Electrolytes unremarkable. Nonfasting glucose 102. LDL 72, HDL 53. TSH normal. CTA of the head, no flow within the distal right vert, which is hypoplastic, age indeterminate. No central vessel occlusion. CTA of the neck show post-radiation changes in the lung apices, moderate plaque within the proximal right internal carotid artery without significant stenosis. Mild plaque within the proximal left internal carotid artery. No intraluminal thrombus, dissection or aneurysm. MRI of the brain shows a few punctate white matter T2 signals of doubtful significance. A developmental venous anomaly in the right frontal lobe of no significance. Chest x-ray, nonspecific mild reticulonodular interstitial thickening within the lungs. PHYSICAL EXAMINATION: VITAL SIGNS: 138/79, 82, 37.2. O2 sat 96%. GENERAL: The patient is awake and alert. She is an excellent historian. There is normal speech and language. Her affect is appropriate. NECK: There are no carotid bruits noted. HEART: There is a systolic murmur heard best over the aortic area. ABDOMEN: Soft and nontender. EXTREMITIES: No calf swelling or tenderness is noted. Dorsalis pedis pulses are intact. NEUROLOGIC: Pupils are equal, round and reactive to light. In the right fundus, there is a Hollenhorst plaque, which is refractile at approximately 7 o'clock. Left optic nerves and retina are unremarkable. A field is impaired in the right eye superonasally. The left eye clay are normal. Motility is normal. There is normal facial sensation and facial symmetry. Speech and language, tongue is midline. Motor 5/5, no drift. Normal rapid alternating movements. Symmetric reflexes. Downgoing toes. Tepjbi-jl-ybml and yasp-tu-lmbi are normal. Gait is not tested. Sensation is intact to light touch in temperature and vibration. IMPRESSION: Branch retinal artery occlusion with apparent cholesterol plaque. This is likely an atherosclerotic event related to carotid or aortic arch. Cannot exclude atrial fibrillation, although the Hollenhorst plaque argues against that. PLAN: Dual antiplatelet therapy with aspirin and Plavix, attempt to lower HDL below 70. Echo and SHAILA, Zio patch as a followup. The patient has a risk for accelerated atherosclerosis of the cervical vasculature since she has had neck irradiation.. I would recommend a followup carotid ultrasound in 6 months and then a carotid ultrasound yearly if stable with referral to vascular surgery if the degree of stenosis is 70% or greater. We will follow with you. If pt is discharged before I see her tomorrow afternoon she should see us in followup in 3-4 weeks post-discharge. SIMON
--- NOTE | 2020-05-23 14:18 | Anesthesiology Consultation ---
Date of Service May 23, 2020 Assessment & Plan Chart Review Chart Review: Acceptable Risk for Surgery and Patient NOT seen in Pre Admission Testing Consults Requested none ASA ASA4 Proposed Anesthesia Anesthesia Type: MAC History Height/Weight Height: 5 ft 4 in Weight: 81.3 kg Allergies Allergy/AdvReac Type Severity Reaction Status Date / Time Penicillins Allergy Severe SOB, HIVES Verified 05/22/20 09:55 fentanyl Allergy Intermediate ITCHY HIVES Verified 05/22/20 09:55 morphine Allergy Intermediate ITCHY HIVES Verified 05/22/20 09:55 adhesive Allergy Mild LOCAL Verified 05/22/20 09:55 HIVE/RASH nitroglycerin AdvReac Intermediate profuse Verified 05/23/20 09:58 vomiting increases heart rate Medications Home Medications Medication Instructions Recorded Confirmed Last Taken ibuprofen [Advil] 600 mg PO DIRECTED PRN 10/22/18 05/22/20 Unknown metoprolol succinate 100 mg PO BID 10/22/18 05/22/20 05/22/20 omeprazole 20 mg PO DAILY 10/22/18 05/22/20 05/22/20 rosuvastatin [Crestor] 40 mg PO HS 10/22/18 05/22/20 05/21/20 levothyroxine 25 mcg PO DAILYBB 02/29/20 05/22/20 05/22/20 aspirin [Aspirin Low-Strength] 81 mg PO DAILY 05/22/20 05/22/20 05/22/20 sertraline 25 mg PO QPM 05/22/20 05/22/20 05/22/20 Active Medications Generic Name Dose Route Start Last Admin Trade Name Freq PRN Reason Stop Dose Admin Acetaminophen 650 mg 05/22/20 14:20 05/22/20 15:41 Acetaminophen 325 Mg Tab PO 06/21/20 14:19 650 mg Q4H PRN Administration Pain or Fever Aspirin 81 mg 05/23/20 09:00 05/23/20 08:52 Aspirin 81 Mg Ectab PO 06/22/20 08:59 81 mg DAILY ROSELIA Administration Heparin Sodium/Dextrose 25,000 units in 500 mls @ 0 mls/hr 05/23/20 10:00 05/23/20 12:37 Heparin Sodium/Dextrose IV 06/22/20 09:59 0 units/hr .Q0M ROSELIA 0 mls/hr Titration Protocol 0 UNITS/HR Levothyroxine Sodium 25 mcg 05/23/20 06:30 05/23/20 06:42 Levothyroxine Sodium 25 Mcg Tablet PO 06/22/20 06:29 25 mcg DAILYBB ROSELIA Administration Metoprolol Succinate 100 mg 05/22/20 21:00 05/23/20 08:52 Metoprolol Succ 50mg Ext Rel Tab PO 06/21/20 20:59 100 mg BID ROSELIA Administration Pantoprazole Sodium 40 mg 05/23/20 09:00 05/23/20 08:52 Pantoprazole 40 Mg Tab PO 06/22/20 08:59 40 mg DAILY ROSELIA Administration Rosuvastatin Calcium 40 mg 05/22/20 21:00 05/22/20 20:52 Rosuvastatin Calcium 20 Mg Tab PO 06/21/20 20:59 40 mg HS ROSELIA Administration Sertraline HCl 25 mg 05/22/20 18:30 05/22/20 18:25 Sertraline Hcl 50 Mg Tablet PO 06/21/20 18:29 25 mg DAILY@1830 ROSELIA Administration Past Medical History Medical History (Updated 05/23/20 @ 14:18 by Jackson Light MD) Aortic stenosis, moderate CAD (coronary artery disease) GERD (gastroesophageal reflux disease) History of cervical cancer History of uterine cancer HLD (hyperlipidemia) Hodgkin disease IMPRESSION: 1. No consolidation identified. 2. Nonspecific mild reticulonodular interstitial thickening within the lungs Migraine Paroxysmal A-fib Exercise / Class Metabolic Activity III < 4 Walking/Shop/Light housework Past Family History Family History Brother Coronary heart disease, Onset Age: 40 Father Coronary heart disease CABG Mother Breast cancer Hypertension Past Surgical History Surgical History History of bone marrow biopsy History of hysterectomy History of pneumonectomy History of splenectomy History of tonsillectomy Hx of CABG x 3 2005 Past Anesthesia History No Hx of Anesthesia Complications and No Family Hx of Anesthesia Complications History of PONV No Hx of PONV and No Hx of Motion Sickness Social History Smoking Status: Never smoker tobacco type: cigarettes Hx Alcohol Use: No Hx Substance Use: No Physical Exam Vital Signs Last Vital Signs Temp 37.2 C 05/23/20 11:00 Pulse 82 05/23/20 11:00 Resp 18 05/23/20 11:00 BP 138/79 05/23/20 11:00 Pulse Ox 96 05/23/20 11:00 Testing Laboratory Results 05/23/20 10:44 05/23/20 07:00 PT 11.9 Seconds (9.0-12.0) 05/23/20 10:44 INR 1.1 (0.9-1.1) 05/23/20 10:44 APTT > 139.0 Seconds (21.0-31.0) H* 05/23/20 10:44 05/23/20 05/23/20 11:37 07:30 POC Glucose 102 H 99 Electrocardiogram Date: 05/23/20 Findings: + NSR @ (at 74;LAD) Chest X-Ray Date: 05/22/20 Findings: + NAD Echocardiogram Date: 05/22/20 EF: 55% LV Function: normal RWMA: + none Other Findings: + LVH (mild) Valvular Disease: + (moderate), + AI (mild) and + MR (mild) TR-mild
[2020-05-23 14:22] LABS: Partial Thromboplastin Ratio 1.3; Partial Thromboplastin Time 36.5 Seconds (21.0-31.0)
[2020-05-23] MEDS: SERTRALINE HCL 50 MG TABLET PO SCH (18:21)
[2020-05-23] MEDS: ROSUVASTATIN CALCIUM 20 MG TAB PO SCH (20:08)
[2020-05-23 20:50] LABS: Partial Thromboplastin Ratio 1.4
[2020-05-24 01:32] LABS: Partial Thromboplastin Ratio 1.5; Partial Thromboplastin Time 43.2 Seconds (21.0-31.0)
[2020-05-24] MEDS ORDERED: HEPARIN IV BOLUS 3,000 UNITS in SYRINGE 0 ML IV ONE (01:34)
[2020-05-24] MEDS: LEVOTHYROXINE SODIUM 25 MCG TABLET PO SCH (05:48)
[2020-05-24 06:01] LABS: Estimated Average Glucose 126 mg/dl
[2020-05-24 07:06] LABS: Hematocrit (blood only) 46.4 % (37-47); Hemoglobin 15.5 g/dL (12.0-16.0); Mean Corpuscular Hgb Conc 33.4 g/dL (32-36); Mean Corpuscular Volume 95.7 fL (80-100); Mean Platelet Volume 10.8 fL (7.4-10.4); Platelet Count 355 K/uL (130-400); RDW Coefficient of Variation 13.6 % (11.5-14.5); RDW Standard Deviation 47.1 fL (36.4-46.3); Red Blood Count 4.85 M/uL (4.2-5.4); White Blood Count 14.59 K/uL (4.8-10.8)
[2020-05-24] MEDS ORDERED: CANNULA ONE (07:20)
[2020-05-24 07:25] LABS: Partial Thromboplastin Ratio 2.5
--- NOTE | 2020-05-24 07:26 | History & Physical Bridge Note ---
Date of Service May 24, 2020 History & Physical Bridge Note I have examined the patient, reviewed the History & Physical and in the interval since the performance of the History & Physical I have noted the following changes of clinical significance: no changes noted. COVID-19 test obtained yesterday was negative. Pt with negative subjective question screen for COVID-19 symptoms and is afebrile. Informed consent for SHAILA obtained. Pt elects to proceed.
[2020-05-24 07:37] LABS: Basophils # (auto) 0.08 K/uL (0-0.2); Basophils % (auto) 0.5 %; Eosinophils # (auto) 0.53 K/uL (0-0.5); Eosinophils % (auto) 3.6 %; Howell-Jolly Bodies Occasional; Immature Granulocytes # (auto) 0.04 K/uL (0.00-0.02); Immature Granulocytes % (auto) 0.3 %; Lymphocytes # (auto) 5.72 K/uL (1.2-3.4); Lymphocytes % (auto) 39.2 %; Monocytes # (auto) 1.75 K/uL (0.11-0.59); Neutrophils # (auto) 6.47 K/uL (1.4-6.5); Neutrophils % (auto) 44.4 %
[2020-05-24 07:38] LABS: BUN Creatinine Ratio 16.7 (10-20); Calcium 9.9 mg/dl (8.5-10.1); Creatinine Clr Calc Pharmacy 88.5 ml/min; Est GFR (African American) 102.7; Est GFR (Non-African American) 88.6; Magnesium 2.4 mg/dl (1.8-2.4); Phosphorus 3.6 mg/dl (2.5-4.9); Potassium 3.9 mmol/L (3.5-5.1)
[2020-05-24] MEDS ORDERED: LIDOCAINE HCL 2% 2 ML VIAL/AMP(20MG/ML) INFIL ONE (07:46)
[2020-05-24] MEDS ORDERED: PROPOFOL IV EMULSION 10 MG/ML 20 ML VIAL IV ONE (07:46)
[2020-05-24] MEDS ORDERED: ATROPINE SULFATE 0.1 MG/ML 10ML SYR IV PRN (07:54)
[2020-05-24] MEDS ORDERED: ePHEDrine sulfate 50 MG/ML AMP IV PRN (07:54)
--- NOTE | 2020-05-24 08:25 | Post Operative Brief Note ---
Cardiology Brief Post Op Date of Surgery May 24, 2020 Pre & Post Diagnosis Operation Date: 05/24/20 07:15 preoperative diagnosis: Branch vessel retinal artery occlusion, assess for cardiac source of embolism Post operative diagnosis: mild Aortic valve calcification, mild ascending aorta atherosclerosis Procedure SHAILA: After informed consent was obtained and a time out was performed , the patient was sedated with the assistance of the anesthesia team receiving 160 mg of IV propofol and 60 mg of IV lidocaine. The aortic valve was mildly calcified (non mobile) without vegetation, mild aortic valve stenosis. Mild nonmobile mitral calcification is present. Mild nonmobile atherosclerosis is noted in the ascending thoracic aorta. Power Mule Operator Kwesi Tse DO Watch Repair Person Sisi Jason Estimated Blood Loss 0 Findings Consistent with Post-Op Diagnosis
--- NOTE | 2020-05-24 08:40 | Anesthesiology Progress Note ---
Date of Service May 24, 2020 Anesthesia Post Procedure Vital Signs Vital Signs: Temp Pulse Pulse Pulse Resp BP BP 05/24/20 08:30 84 20 148/81 H 05/24/20 08:20 85 20 144/81 H 05/24/20 07:32 81 20 163/81 H 05/24/20 07:00 74 05/24/20 04:00 36.9 C 77 18 134/77 05/24/20 01:32 62 05/23/20 23:59 36.9 C 80 18 134/79 05/23/20 19:00 37.0 C 75 18 130/79 05/23/20 15:27 77 05/23/20 15:00 37.0 C 77 96 H 130/78 05/23/20 11:00 37.2 C 82 18 138/79 Pulse Ox 05/24/20 08:30 94 05/24/20 08:20 96 05/24/20 07:32 98 05/24/20 07:00 05/24/20 04:00 96 05/24/20 01:32 05/23/20 23:59 94 05/23/20 19:00 94 05/23/20 15:27 05/23/20 15:00 96 05/23/20 11:00 96 Transfer of Care Handoff Completed per policy Notes Mental Status: alert / awake / arousable and participated in evaluation Patient Amnestic to Procedure: Yes Nausea / Vomiting: adequately controlled Pain: adequately controlled Airway Patency, RR, SpO2: stable & adequate BP & HR: stable & adequate Hydration State: stable & adequate Anesthetic Complications: no major complications apparent and Pt Satisfied with anesthetic care
[2020-05-24] MEDS ORDERED: CLOPIDOGREL BISULFATE 75 MG TAB PO SCH (09:00)
--- NOTE | 2020-05-24 09:04 | Communication Note ---
Date of Service: May 24, 2020 Patient having SHAILA. If SHAILA neg for source of embolization, would recommend a right CEA this week. Will be in office rest of today. Will see patient in am and if surgery needed will plan on Sunday.
--- NOTE | 2020-05-24 09:21 | Hospitalist Progress Note ---
Date of Service May 24, 2020 Assessment & Plan (1) Visual changes: Branch retinal artery occlusion This is a 50-year-old female who has significant past medical history of CAD with history of CABG x3 in 2006, 1 document episode of PAF, mild aortic valve stenosis, HTN, history of Hodgkin's lymphoma, history of uterine CA who presents to ED secondary to right eye visual changes starting at 9 PM last evening prior to admission. Came to ER with symptoms of sudden onset of visual change on right, Around 9 PM last night patient experienced as if a curtain dropped down covering have of her right visual field, Denies of any headache, no eye pain, no weakness or paresthesia In the ER patient continues to have visual symptoms, CT head noncontrast no acute change, CTA of neck shows right carotid artery plaques High risk for acute CVA, patient's was on aspirin 81 mg daily started with Plavix, continue high intensity statin MRI of brain ordered Neurology consult fasting lipid panel, a1c visual acuity consult neurology PT/OT/ST echocardiogram pt has hx of ocular migraine - this is different, need to rule out embolic event vs other intracranial abnormality mild elevated H/H, ca+ - obtain ionized calcium, gentle IVF x 1 L 05/23/2020 Ophthalmology, Dr. Toney consulted, evaluated patient today, May 23, patient found to have Branch Retinal Artery Occlusion (BRAO) secondary to plaque in inferior temporal arcade, suspecting source of plaque likely to be cardiac or carotid Had a carotid imaging on May 22, on admission, which showed moderate plaque in the right carotid artery. Recommend cardiac imaging to rule out potential cardiac source and 4-week ophthalmology follow-up as outpatient. Patient had echocardiogram done on admission, May 22, discussed with cardiology, and it is appropriate to obtain SHAILA for more detailed exam, in addition patient has history of paroxysmal A. fib and therefore IV heparin will be started. Plavix which was just started, will be discontinued. Vascular surgery also notified regarding right carotid plaque. SHAILA obtained this morning, May 24,by Dr. Tse, findings similar to TTE. Mild aortic valve calcium, mild aortic plaque. No left atrial appendage thrombus. No PFO. Sinus rhythm. Carotid ultrasound was also obtained, and does not show significant stenosis. Plan is aspirin 81, Plavix, statin, outpatient vascular surgery with [facility]. Discussed in detail with neurology as well who is in agreement. Patient prefers to follow-up with [facility] vascular surgery. Vascular surgery was contacted and appointment will be scheduled for the patient. 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 Caraballo for hodgkins lymphoma, hx of uterine/cerivcal ca - they are monitoring monitor (4) Coronary artery disease: hx of cabg x 3 in 2005 no cp or ecg change mild elevation in trop, plan as above on ASA, statin, metoprolol as outpt Pt does have mild aortic valve stenosis per recent echo 02/2020, EF 60-65%, grade 1 diastolic dysfunction (5) Carotid artery disease: CTA neck reveal Moderate plaque within the proximal right internal carotid artery and mild plaque within the proximal left internal coronary artery without significant stenosis Already on high intensity statin, asa Fasting lipid panel ordered Vascular surgery consulted neurology consulted (6) Paroxysmal A-fib: Known episode of PAF follows [facility] cardiology on ASA and metoprolol Discussed with Dr. Tse, recommend to start IV heparin Patient will be discharged on aspirin Plavix, statin, Plavix is a new medication (7) HLD (hyperlipidemia): continue statin (8) Hypothyroid: continue levothyroxine (9) Anxiety: continue zoloft (10) GERD (gastroesophageal reflux disease): continue PPI (11) DVT prophylaxis: SCD/TEDS, will start IV heparin Disposition: med tele Follow up: PCP Dr. De Leon upon discharge Follow-up with ophthalmology in 4 weeks recommended as well Vascular surgery in [place], in couple of weeks Admission and Anticipated Discharge Date Admission Date: May 23, 2020 Subjective Patient underwent SHAILA with Dr. Tse this morning. Results discussed in detail with neurology and vascular surgery. Patient wishes to follow-up with [facility] vascular surgery. Vascular surgery contacted and appointment will be scheduled for her. Denies any chest pain, shortness of breath, fevers chills, abdominal pain, nausea or vomiting. She just feels tired after the procedure and have a little sore throat. Review of Systems Review of Systems: All systems reviewed & are unremarkable except as noted in HPI & below Constitutional: no fever and no chills Eyes: + blind spots (Right peripheral vision deficit) Respiratory: no cough and no dyspnea Cardiovascular: no chest pain and no palpitations Gastrointestinal: no abdominal pain, no nausea and no vomiting Physical Exam Physical Exam: Constitutional: WD/WN, F, vitals as above, in NAD, sitting up in bed, pleasant, conversing easily Head: Normocephalic, Atraumatic Eyes: EOMI, conjunctivae normal, anicteric sclerae, + right peripheral vision deficit ENMT: external ear and nose normal, oropharynx normal Neck: trachea midline, no thyromegaly normal visual inspection Respiratory: normal respiratory effort, lungs clear to auscultation, no wheeze, rales, rhonchi. Normal insp/exp effort, no accessory muscle use Cardiovascular: RRR, 2/6 JODY noted RUSB with radiation to cardiac apex, no edema Vessels: no JVD or carotid bruit Chest: normal inspection of chest Abdomen: normal bowel sounds, soft, nontender Musculoskeletal: no cyanosis or clubbing, extremities motor strength 5/5 Skin: no rashes, warm and dry normal turgor Neurologic: EOMI, no face palsy, no dysarthria, + right peripheral vision deficit, moves all extremities Psychiatric: A+Ox3, tearful, euthymic affect Results & Data Results & Data ([facility]) Vital Signs (Past 12 Hours) Vital Signs Temp Pulse Pulse Pulse Resp BP BP 05/24/20 08:54 37.3 C 85 18 131/76 05/24/20 08:49 66 05/24/20 08:30 84 20 148/81 H 05/24/20 08:20 85 20 144/81 H 05/24/20 07:32 81 20 163/81 H 05/24/20 07:00 74 05/24/20 04:00 36.9 C 77 18 134/77 05/24/20 01:32 62 05/23/20 23:59 36.9 C 80 18 134/79 Pulse Ox 05/24/20 08:54 95 05/24/20 08:49 05/24/20 08:30 94 05/24/20 08:20 96 05/24/20 07:32 98 05/24/20 07:00 05/24/20 04:00 96 05/24/20 01:32 05/23/20 23:59 94 Laboratory Results 05/24/20 05/24/20 05/24/20 Range/Units 06:50 06:50 06:50 WBC 14.59 H (4.8-10.8) K/uL RBC 4.85 (4.2-5.4) M/uL Hgb 15.5 (12.0-16.0) g/dL Hct 46.4 (37-47) % MCV 95.7 (80-100) fL MCH 32.0 (25-34) pg MCHC 33.4 (32-36) g/dL RDW Std Deviation 47.1 H (36.4-46.3) fL RDW Coeff of Prosper 13.6 (11.5-14.5) % Plt Count 355 (130-400) K/uL MPV 10.8 H (7.4-10.4) fL Immature Gran % (Auto) 0.3 % Neut % (Auto) 44.4 % Lymph % (Auto) 39.2 % Morris % (Auto) 12.0 % Eos % (Auto) 3.6 % Baso % (Auto) 0.5 % Neut # (Auto) 6.47 (1.4-6.5) K/uL Lymph # (Auto) 5.72 H (1.2-3.4) K/uL Morris # (Auto) 1.75 H (0.11-0.59) K/uL Eos # (Auto) 0.53 H (0-0.5) K/uL Baso # (Auto) 0.08 (0-0.2) K/uL Immature Gran # (Auto) 0.04 H (0.00-0.02) K/uL Blood Smear Review [place] Bodies Occasional PT (9.0-12.0) Seconds INR (0.9-1.1) APTT 70.0 H* (21.0-31.0) Seconds PTT Ratio 2.5 Sodium 140 (136-145) mmol/L Potassium 3.9 (3.5-5.1) mmol/L Chloride 108 H (98-107) mmol/L Carbon Dioxide 28 (21-32) mmol/L Anion Gap 4.0 (3-11) BUN 13 (7-18) mg/dl Creatinine 0.78 (0.6-1.2) mg/dl Est Cr Clr Drug Dosing 88.5 ml/min Est GFR ( Amer) 102.7 Est GFR (Non-Af Amer) 88.6 BUN/Creatinine Ratio 16.7 (10-20) Glucose 97 (70-99) mg/dl POC Glucose (70-99) mg/dl Estimat Average Glucose mg/dl Hemoglobin A1c (4.5-5.6) % Calcium 9.9 (8.5-10.1) mg/dl Phosphorus 3.6 (2.5-4.9) mg/dl Magnesium 2.4 (1.8-2.4) mg/dl COVID-19 Eval Order SARS-CoV-2, RNA, NAAT (NEGATIVE) 05/24/20 05/23/20 05/23/20 Range/Units 01:17 Unknown Unknown WBC (4.8-10.8) K/uL RBC (4.2-5.4) M/uL Hgb (12.0-16.0) g/dL Hct (37-47) % MCV (80-100) fL MCH (25-34) pg MCHC (32-36) g/dL RDW Std Deviation (36.4-46.3) fL RDW Coeff of [place]per (11.5-14.5) % Plt Count (130-400) K/uL MPV (7.4-10.4) fL Immature Gran % (Auto) % Neut % (Auto) % Lymph % (Auto) % Morris % (Auto) % Eos % (Auto) % Baso % (Auto) % Neut # (Auto) (1.4-6.5) K/uL Lymph # (Auto) (1.2-3.4) K/uL [place] # (Auto) (0.11-0.59) K/uL Eos # (Auto) (0-0.5) K/uL Baso # (Auto) (0-0.2) K/uL Immature Gran # (Auto) (0.00-0.02) K/uL Blood Smear Review [place] Bodies PT (9.0-12.0) Seconds INR (0.9-1.1) APTT 43.2 H (21.0-31.0) Seconds PTT Ratio 1.5 Sodium (136-145) mmol/L Potassium (3.5-5.1) mmol/L Chloride (98-107) mmol/L Carbon Dioxide (21-32) mmol/L Anion Gap (3-11) BUN (7-18) mg/dl Creatinine (0.6-1.2) mg/dl Est Cr Clr Drug Dosing ml/min Est GFR ( Amer) Est GFR (Non-Af Amer) BUN/Creatinine Ratio (10-20) Glucose (70-99) mg/dl POC Glucose (70-99) mg/dl Estimat Average Glucose mg/dl Hemoglobin A1c (4.5-5.6) % Calcium (8.5-10.1) mg/dl Phosphorus (2.5-4.9) mg/dl Magnesium (1.8-2.4) mg/dl COVID-19 Eval [facility] SARS-CoV-2, RNA, NAAT NEGATIVE (NEGATIVE) 05/23/20 05/23/20 05/23/20 Range/Units 20:46 20:25 16:31 WBC (4.8-10.8) K/uL RBC (4.2-5.4) M/uL Hgb (12.0-16.0) g/dL Hct (37-47) % MCV (80-100) fL MCH (25-34) pg MCHC (32-36) g/dL RDW Std Deviation (36.4-46.3) fL RDW Coeff of [place]per (11.5-14.5) % Plt Count (130-400) K/uL MPV (7.4-10.4) fL Immature Gran % (Auto) % Neut % (Auto) % Lymph % (Auto) % Morris % (Auto) % Eos % (Auto) % Baso % (Auto) % Neut # (Auto) (1.4-6.5) K/uL Lymph # (Auto) (1.2-3.4) K/uL [place] # (Auto) (0.11-0.59) K/uL Eos # (Auto) (0-0.5) K/uL Baso # (Auto) (0-0.2) K/uL Immature Gran # (Auto) (0.00-0.02) K/uL Blood Smear Review [place] Bodies PT (9.0-12.0) Seconds INR (0.9-1.1) APTT 40.0 H (21.0-31.0) Seconds PTT Ratio 1.4 Sodium (136-145) mmol/L Potassium (3.5-5.1) mmol/L Chloride (98-107) mmol/L Carbon Dioxide (21-32) mmol/L Anion Gap (3-11) BUN (7-18) mg/dl Creatinine (0.6-1.2) mg/dl Est Cr Clr Drug Dosing ml/min Est GFR ( Amer) Est GFR (Non-Af Amer) BUN/Creatinine Ratio (-20) Glucose (70-99) mg/dl POC Glucose 117 H 120 H (70-99) mg/dl Estimat Average Glucose mg/dl Hemoglobin A1c (4.5-5.6) % Calcium (8.5-10.1) mg/dl Phosphorus (2.5-4.9) mg/dl Magnesium (1.8-2.4) mg/dl COVID-19 Eval Order SARS-CoV-2, RNA, NAAT (NEGATIVE) 05/23/20 05/23/20 05/23/20 Range/Units 13:53 11:37 10:44 WBC (4.8-10.8) K/uL RBC (4.2-5.4) M/uL Hgb (12.0-16.0) g/dL Hct (37-47) % MCV (80-100) fL MCH (25-34) pg MCHC (32-36) g/dL RDW Std Deviation (36.4-46.3) fL RDW Coeff of [place]per (11.5-14.5) % Plt Count (130-400) K/uL MPV (7.4-10.4) fL Immature Gran % (Auto) % Neut % (Auto) % Lymph % (Auto) % Morris % (Auto) % Eos % (Auto) % Baso % (Auto) % Neut # (Auto) (1.4-6.5) K/uL Lymph # (Auto) (1.2-3.4) K/uL [place] # (Auto) (0.11-0.59) K/uL Eos # (Auto) (0-0.5) K/uL Baso # (Auto) (0-0.2) K/uL Immature Gran # (Auto) (0.00-0.02) K/uL Blood Smear Review [place] Bodies PT 11.9 (9.0-12.0) Seconds INR 1.1 (0.9-1.1) APTT 36.5 H > 139.0 H* (21.0-31.0) Seconds PTT Ratio 1.3 > 5.0 Sodium (136-145) mmol/L Potassium (3.5-5.1) mmol/L Chloride (98-107) mmol/L Carbon Dioxide (21-32) mmol/L Anion Gap (3-11) BUN (7-18) mg/dl Creatinine (0.6-1.2) mg/dl Est Cr Clr Drug Dosing ml/min Est GFR ( Amer) Est GFR (Non-Af Amer) BUN/Creatinine Ratio (10-20) Glucose (70-99) mg/dl POC Glucose 102 H (70-99) mg/dl Estimat Average Glucose mg/dl Hemoglobin A1c (4.5-5.6) % Calcium (8.5-10.1) mg/dl Phosphorus (2.5-4.9) mg/dl Magnesium (1.8-2.4) mg/dl COVID-19 Eval Order SARS-CoV-2, RNA, NAAT (NEGATIVE) 05/23/20 05/23/20 Range/Units 10:44 07:00 WBC 12.83 H (4.8-10.8) K/uL RBC 4.51 (4.2-5.4) M/uL Hgb 14.4 (12.0-16.0) g/dL Hct 43.2 (37-47) % MCV 95.8 (80-100) fL MCH 31.9 (25-34) pg MCHC 33.3 (32-36) g/dL RDW Std Deviation 47.8 H (36.4-46.3) fL RDW Coeff of Prosper 13.6 (11.5-14.5) % Plt Count 361 (130-400) K/uL MPV 11.1 H (7.4-10.4) fL Immature Gran % (Auto) 0.3 % Neut % (Auto) 44.1 % Lymph % (Auto) 41.9 % Morris % (Auto) 11.1 % Eos % (Auto) 2.3 % Baso % (Auto) 0.3 % Neut # (Auto) 5.66 (1.4-6.5) K/uL Lymph # (Auto) 5.38 H (1.2-3.4) K/uL [place] # (Auto) 1.42 H (0.11-0.59) K/uL Eos # (Auto) 0.29 (0-0.5) K/uL Baso # (Auto) 0.04 (0-0.2) K/uL Immature Gran # (Auto) 0.04 H (0.00-0.02) K/uL Blood Smear Review [place] Bodies PT (9.0-12.0) Seconds INR (0.9-1.1) APTT (21.0-31.0) Seconds PTT Ratio Sodium (136-145) mmol/L Potassium (3.5-5.1) mmol/L Chloride (98-107) mmol/L Carbon Dioxide (21-32) mmol/L Anion Gap (3-11) BUN (7-18) mg/dl Creatinine (0.6-1.2) mg/dl Est Cr Clr Drug Dosing ml/min Est GFR ( Amer) Est GFR (Non-Af Amer) BUN/Creatinine Ratio (10-20) Glucose (70-99) mg/dl POC Glucose (70-99) mg/dl Estimat Average Glucose 126 mg/dl Hemoglobin A1c 6.0 H (4.5-5.6) % Calcium (8.5-10.1) mg/dl Phosphorus (2.5-4.9) mg/dl Magnesium (1.8-2.4) mg/dl COVID-19 Eval Order SARS-CoV-2, RNA, NAAT (NEGATIVE) Medications Administered Current Inpatient Medications Acetaminophen (Acetaminophen 325 Mg Tab) 650 mg PO Q4H PRN PRN Reason: Pain or Fever Stop: 06/21/20 14:19 Last Admin: 05/22/20 15:41 Dose: 650 mg Documented by: Al Hydrox/Mg Hydrox/Simethicone (Aluminum/Magnesium Susp 30 Ml Udc) 15 ml PO Q4H PRN PRN Reason: Dyspepsia Stop: 06/21/20 14:19 Aspirin (Aspirin 81 Mg Ectab) 81 mg PO DAILY ROSELIA Stop: 06/22/20 08:59 Last Admin: 05/23/20 08:52 Dose: 81 mg Documented by: Atropine Sulfate (Atropine Sulfate 0.1 Mg/Ml 10ml Syr) 0.5 mg IV Q1M PRN PRN Reason: PACU Use-HR<40 &/or Bradycardi Stop: 05/24/20 15:54 Clopidogrel Bisulfate (Clopidogrel Bisulfate 75 Mg Tab) 75 mg PO QAM [facility] Stop: 06/23/20 08:59 Ephedrine Sulfate (Ephedrine Sulfate 50 Mg/Ml Amp) 5 mg IV Q5M PRN PRN Reason: PACU Use Only-SBP<90 mmHg Stop: 05/24/20 15:54 Levothyroxine Sodium (Levothyroxine Sodium 25 Mcg Tablet) 25 mcg PO DAILYBB [facility] Stop: 06/22/20 06:29 Last Admin: 05/24/20 05:48 Dose: 25 mcg Documented by: Magnesium Hydroxide (Magnesium Hydroxide Susp 30 Ml Udc) 30 ml PO Q12H PRN PRN Reason: Constipation Stop: 06/21/20 14:19 Metoprolol Succinate (Metoprolol Succ 50mg Ext Rel Tab) 100 mg PO BID [facility] Stop: 06/21/20 20:59 Last Admin: 05/23/20 20:08 Dose: 100 mg Documented by: Miscellaneous Information (Pharmacist Discharge Med Rec Consult) 1 ea N/A UD PRN PRN Reason: Consult Stop: 06/21/20 14:19 Ondansetron HCl (Ondansetron Inj 2 Mg/Ml 2 Ml Vial) 4 mg IV Q6H PRN PRN Reason: Nausea Stop: 06/21/20 14:19 Pantoprazole Sodium (Pantoprazole 40 Mg Tab) 40 mg PO DAILY [facility] Stop: 06/22/20 08:59 Last Admin: 05/23/20 08:52 Dose: 40 mg Documented by: Polyethylene Glycol (Polyethylene (Miralax) 17 Gm Pack) 17 gm PO DAILY PRN PRN Reason: Constipation Stop: 06/21/20 14:19 Rosuvastatin Calcium (Rosuvastatin Calcium 20 Mg Tab) 40 mg PO HS [facility] Stop: 06/21/20 20:59 Last Admin: 05/23/20 20:08 Dose: 40 mg Documented by: Sertraline HCl (Sertraline Hcl 50 Mg Tablet) 25 mg PO DAILY@1830 [facility] Stop: 06/21/20 18:29 Last Admin: 05/23/20 18:21 Dose: 25 mg Documented by: (1) Carotid artery disease Carotid artery disease type: unspecified Laterality: right Qualified Code(s): I77.9 - Disorder of arteries and arterioles, unspecified
--- NOTE | 2020-05-24 09:24 | Cardiology Progress Note ---
Date of Service May 24, 2020 Assessment & Plan (1) Branch retinal artery occlusion of right eye: SHAILA with findings of mild small mobile calcification of aortic valve, mildly mobile ascending aorta atherosclerosis, mild mitral annular calcification (not mobile). The left atrial appendage is well visualized without evidence of left atrial appendage thrombus. The interatrial septum was patent without evidence of PFO or atrial septal defect. Given findings of carotid plaque, aortic valve calcification, atherosclerotic plaque in the ascending aorta, favor treatment with dual antiplatelet therapy rather than anticoagulation. Heparin therefore has been discontinued. Clopidogrel reinitiated. Continue aspirin 81 mg daily. Continue statin therapy. Admission and Anticipated Discharge Date Admission Date: May 23, 2020 Subjective Patient seen prior to, during, and post SHAILA. No complaint other than ongoing right visual deficit. Physical Exam Physical Exam: Temp Pulse Resp BP Pulse Ox 37.3 C 85 18 131/76 95 05/24/20 08:54 05/24/20 08:54 05/24/20 08:54 05/24/20 08:54 05/24/20 08:54 Constitutional: WD/WN, vitals as above Respiratory: normal respiratory effort, lungs clear to auscultation Cardiovascular: Rate/Rhythm: regular rhythm Heart Sounds: + murmur (I/ SM) Vessels: no JVD Extremities: no edema Gastrointestinal (Abdomen): normal bowel sounds, soft, nontender, no hepatosplenomegaly Neurologic: PERRL, EOMI, accommodation nl, no face palsy, no dysarthria Results & Data ([facility]) Vital Signs (Past 12 Hours) Vital Signs Temp Pulse Pulse Pulse Resp BP BP 05/24/20 08:54 37.3 C 85 18 131/76 05/24/20 08:49 66 05/24/20 08:30 84 20 148/81 H 05/24/20 08:20 85 20 144/81 H 05/24/20 07:32 81 20 163/81 H 05/24/20 07:00 74 05/24/20 04:00 36.9 C 77 18 134/77 05/24/20 01:32 62 05/23/20 23:59 36.9 C 80 18 134/79 Pulse Ox 05/24/20 08:54 95 05/24/20 08:49 05/24/20 08:30 94 05/24/20 08:20 96 05/24/20 07:32 98 10/12/20 07:00 05/24/20 04:00 96 05/24/20 01:32 05/23/20 23:59 94 Laboratory Results Coagulation 05/23/20 05/23/20 05/23/20 Range/Units 10:44 13:53 20:25 PT 11.9 (9.0-12.0) Seconds APTT > 139.0 H* 36.5 H 40.0 H (21.0-31.0) Seconds 05/24/20 05/24/20 Range/Units 01:17 06:50 PT (9.0-12.0) Seconds APTT 43.2 H 70.0 H* (21.0-31.0) Seconds CBC 05/23/20 05/24/20 Range/Units 10:44 06:50 WBC 12.83 H 14.59 H (4.8-10.8) K/uL RBC 4.51 4.85 (4.2-5.4) M/uL Hgb 14.4 15.5 (12.0-16.0) g/dL Hct 43.2 46.4 (37-47) % Plt Count 361 355 (130-400) K/uL Neut # (Auto) 5.66 6.47 (1.4-6.5) K/uL Lymph # (Auto) 5.38 H 5.72 H (1.2-3.4) K/uL [place] # (Auto) 1.42 H 1.75 H (0.11-0.59) K/uL Eos # (Auto) 0.29 0.53 H (0-0.5) K/uL Baso # (Auto) 0.04 0.08 (0-0.2) K/uL Comprehensive Metabolic Panel 05/24/20 Range/Units 06:50 Sodium 140 (136-145) mmol/L Potassium 3.9 (3.5-5.1) mmol/L Chloride 108 H (98-107) mmol/L Carbon Dioxide 28 (21-32) mmol/L BUN 13 (7-18) mg/dl Creatinine 0.78 (0.6-1.2) mg/dl Glucose 97 (70-99) mg/dl Calcium 9.9 (8.5-10.1) mg/dl Intake and Output 05/23/20 05/24/20 05/24/20 22:59 06:59 14:59 Intake Total 275 / 1072.267 404.467 / 1072.267 97.750 / 97.750 Balance 275 / 1072.267 404.467 / 1072.267 97.750 / 97.750 Intake: IV 179.467 / 212.267 97.750 / 97.750 HEPARIN SODIUM/DEXTROSE 25,000 179.467 / 212.267 97.750 / 97.750 units In 500 ml @ 850 UNITS/HR 17 mls/hr IV .Q24H [facility] Rx#: [id number] Oral 275 / 860 225 / 860 Other: Weight 80.3 kg 80.3 kg Weight Measurement Method Standing Scale Patient Weight 05/25/20 06:59 Weight 80.3 kg
[2020-05-24] MEDS: ASPIRIN 81 MG ECTAB PO SCH (10:10)
[2020-05-24] MEDS: PANTOprazole 40 MG TAB PO SCH (10:10)
[2020-05-24] MEDS: METOPROLOL SUCC 50MG EXT REL TAB PO SCH (10:11)
--- NOTE | 2020-05-24 11:52 | Ultrasound Report ---
ULTRASOUND OF THE CAROTID ARTERIES CLINICAL HISTORY: Carotid stenosis COMPARISON STUDY: CT angiography dated 05/22/2020 TECHNIQUE: Real-time, grayscale, and color Doppler sonography of the carotid arteries was performed. Imaging reviewed in the transverse and longitudinal planes. NASCET criteria was utilized for stenosis calcification. FINDINGS: There is mild to moderate atherosclerotic plaque present . The peak systolic velocity within the right internal carotid artery is 88 cm/sec. The systolic velocity ratio of right internal to common carotid artery is 1.1. The peak systolic velocity within the left internal carotid artery is 64 cm/sec. The systolic velocity ratio left internal to common carotid artery is 0.7. Antegrade flow is seen in the vertebral arteries. The external carotid arteries are patent. Blood pressure in the right arm measured 163 mm/Hg. Blood pressure in the left arm measured 199 mm/H g. IMPRESSION: No evidence of hemodynamically significant carotid stenosis. ACT 112: Negative or not required by law. Electronically signed by: Dax Bridges M.D. 05/24/2020 11:51 AM
[2020-05-24] MEDS ORDERED: STROKE PATIENT DISCHARGE STA (12:48)
--- NOTE | 2020-05-24 12:51 | Discharge Summary ---
Date of Service May 24, 2020 Admission HPI Per Admitting Provider This is a 50-year-old female who has significant past medical history of CAD with history of CABG x3 in 2006, 1 document episode of PAF, mild aortic valve stenosis, HTN, history of Hodgkin's lymphoma, history of uterine CA who presents to ED secondary to right eye visual changes starting at 9 PM last evening. She states yesterday evening she was in her normal state of health when approximately 9 PM she developed sudden onset visual change to her right eye. She describes it as a black curtain on the top half and the lateral half of her right visual field. She denied any acute pain, redness, headache, diplopia, blurred vision, change in hearing, lightheadedness or dizziness associated with symptoms. She also denies any change in her overall visual acuity. She does have history of ocular migraine and thought maybe this was the start of that; however, it never progressed to that and she continues to have the same visual changes. Typically with her ocular migraine she will get a white halo-like appearance to her right eye. She otherwise denies any extremity weakness, dysarthria or difficulty swallowing. She denies any similar symptoms in the past. She denies any recent fever, chills, sweats, chest pain, palpitations, shortness of breath, shortness of breath with exertion, nausea, vomiting, abdominal pain, change in her bowel or urinary habits. She is overall very anxious and tearful over her current situation requiring hospital admission. Her is at bedside. In ED upon arrival patient was significantly hypertensive although very anxious. During my evaluation it was 140s over 80s. She was otherwise hemodynamically stable. Lab work notable for WBC 13.99k, H&H 16.0 and 47.8, platelet 403, BUN 12, creatinine 0.8, glucose 102, alkaline phosphatase 123, troponin 0.1, calcium [address] was unremarkable for acute abnormality. CTA of head neck revealed hypoplastic right vertebral artery as well as moderate plaque to the right internal carotid artery but no significant stenosis. CXR: Chest x-ray revealed nonspecific mild reticulonodular interstitial thickening within the lungs Admission Exam Per Admitting Provider Constitutional: WD/WN, F, vitals as above, tearful, NAD, sitting up in bed, pleasant, conversing easily Head: Normocephalic, Atraumatic Eyes: PERRL, conjunctivae normal, no visual field deficit, anicteric sclerae ENMT: external ear and nose normal, oropharynx normal Neck: trachea midline, no thyromegaly normal visual inspection Respiratory: normal respiratory effort, lungs clear to auscultation, no wheeze, rales, rhonchi. Normal insp/exp effort, no accessory muscle use Cardiovascular: RRR, 2/6 JODY noted RUSB with radiation to cardiac apex, no edema Vessels: no JVD or carotid bruit Chest: normal inspection of chest Abdomen: normal bowel sounds, soft, nontender, no hepatosplenomegaly Musculoskeletal: no cyanosis or clubbing, extremities motor strength 5/5 Skin: no rashes, warm and dry normal turgor Neurologic: PERRL, EOMI, accommodation nl, no face palsy, no dysarthria CN's II-XI intact bilaterally and moves all extremities Psychiatric: A+Ox3, tearful, euthymic affect Lymphatic: no cervical or axillary lymphadenopathy : deferred Principal Diagnosis Branch retinal artery occlusion, right eye Discharge Exam Constitutional: WD/WN, F, vitals as above, in NAD, sitting up in bed, pleasant, conversing easily Head: Normocephalic, Atraumatic Eyes: EOMI, conjunctivae normal, anicteric sclerae, + right peripheral vision deficit ENMT: external ear and nose normal, oropharynx normal Neck: trachea midline, no thyromegaly normal visual inspection Respiratory: normal respiratory effort, lungs clear to auscultation, no wheeze, rales, rhonchi. Normal insp/exp effort, no accessory muscle use Cardiovascular: RRR, 2/6 JODY noted RUSB with radiation to cardiac apex, no edema Vessels: no JVD or carotid bruit Chest: normal inspection of chest Abdomen: normal bowel sounds, soft, nontender Musculoskeletal: no cyanosis or clubbing, extremities motor strength 5/5 Skin: no rashes, warm and dry normal turgor Neurologic: EOMI, no face palsy, no dysarthria, + right peripheral vision deficit, moves all extremities Psychiatric: A+Ox3, tearful, euthymic affect Discharge Data Allergies Allergy/AdvReac Type Severity Reaction Status Date / Time Penicillins Allergy Severe SOB, HIVES Verified 05/22/20 09:55 fentanyl Allergy Intermediate ITCHY HIVES Verified 05/22/20 09:55 morphine Allergy Intermediate ITCHY HIVES Verified 05/22/20 09:55 adhesive Allergy Mild LOCAL Verified 05/22/20 09:55 HIVE/RASH nitroglycerin AdvReac Intermediate profuse Verified 05/23/20 09:58 vomiting increases heart rate Consultations 05/22/20 11:28 ED Decision to Admit Stat 05/22/20 12:11 Consult Neurology Routine 05/22/20 14:20 Consult Case Management - Discharge Planning Routine 05/22/20 19:23 Consult Ophthalmology Routine 05/23/20 09:20 Consult Vascular Surgery Routine 05/23/20 09:35 Consult Cardiology Routine 05/23/20 13:40 Consult Anesthesiology Routine Procedures Performed Operation Date: 05/24/20 07:15 Actual Procedures p Echo Transesophageal - Kwesi Tse DO Ordered Studies 05/22/20 09:52 CT angio head w con Stat IMPRESSION: 1. No flow identified within the distal right vertebral artery which is hypoplastic. This finding is age-indeterminate but probably chronic. 2. No acute central vessel occlusion. CT angio neck with con Stat IMPRESSION: 1. Moderate plaque within the proximal right internal carotid artery and mild plaque within the proximal left internal coronary artery without significant stenosis. 2. Hypoplastic right vertebral artery. Dominant, patent left vertebral artery. CT head/brain wo con Stat IMPRESSION: No acute intracranial findings. 05/22/20 12:06 MR brain wo/w con Stat IMPRESSION: 1. No acute intracranial findings. 2. No intracranial mass or pathologic enhancement. 3. A few punctate white matter T2 are present as foci which are of doubtful significance. 4. Developmental venous anomaly within the right frontal lobe, a finding of no significance. 05/24/20 09:59 US carotid doppler BI Urgent FINDINGS: There is mild to moderate atherosclerotic plaque present . The peak systolic velocity within the right internal carotid artery is 88 cm/sec. The systolic velocity ratio of right internal to common carotid artery is 1.1. The peak systolic velocity within the left internal carotid artery is 64 cm/sec. The systolic velocity ratio left internal to common carotid artery is 0.7. Antegrade flow is seen in the vertebral arteries. The external carotid arteries are patent. Blood pressure in the right arm measured 163 mm/Hg. Blood pressure in the left arm measured 199 mm/Hg. IMPRESSION: No evidence of hemodynamically significant carotid stenosis. Hospital Course (1) Visual changes: Branch retinal artery occlusion This is a 50-year-old female who has significant past medical history of CAD with history of CABG x3 in 2006, 1 document episode of PAF, mild aortic valve stenosis, HTN, history of Hodgkin's lymphoma, history of uterine CA who presents to ED secondary to right eye visual changes starting at 9 PM last evening prior to admission. Came to ER with symptoms of sudden onset of visual change on right, Around 9 PM last night patient experienced as if a curtain dropped down covering have of her right visual field, Denies of any headache, no eye pain, no weakness or paresthesia In the ER patient continues to have visual symptoms, CT head noncontrast no acute change, CTA of neck shows right carotid artery plaques High risk for acute CVA, patient's was on aspirin 81 mg daily started with Plavix, continue high intensity statin MRI of brain ordered Neurology consult fasting lipid panel, a1c visual acuity consult neurology PT/OT/ST echocardiogram pt has hx of ocular migraine - this is different, need to rule out embolic event vs other intracranial abnormality mild elevated H/H, ca+ - obtain ionized calcium, gentle IVF x 1 L 05/23/2020 Ophthalmology, Dr. Toney consulted, evaluated patient today, May 23, patient found to have Branch Retinal Artery Occlusion (BRAO) secondary to plaque in inferior temporal arcade, suspecting source of plaque likely to be cardiac or carotid Had a carotid imaging on May 22, on admission, which showed moderate plaque in the right carotid artery. Recommend cardiac imaging to rule out potential cardiac source and 4-week ophthalmology follow-up as outpatient. Patient had echocardiogram done on admission, May 22, discussed with cardiology, and it is appropriate to obtain SHAILA for more detailed exam, in addition patient has history of paroxysmal A. fib and therefore IV heparin will be started. Plavix which was just started, will be discontinued. Vascular surgery also notified regarding right carotid plaque. 05/24/2020 SHAILA obtained this morning, May 24,by Dr. Tse, findings similar to TTE. Mild aortic valve calcium, mild aortic plaque. No left atrial appendage thrombus. No PFO. Sinus rhythm. Carotid ultrasound was also obtained, and does not show significant stenosis. Plan is aspirin 81, Plavix, statin, outpatient vascular surgery with [facility]. Discussed in detail with neurology as well who is in agreement. Patient prefers to follow-up with [facility] vascular surgery. Vascular surgery was contacted and appointment will be scheduled for the patient. Update: Reviewed images by Dr. Melton, vascular surgeon at [facility], concerning for acute thrombus/hemorrhagic plaque, and recommending surgery. Patient still prefers to go home and follow-up with [facility] vascular surgery. Vascular surgery at [facility] was contacted and are aware about possibility of more acute intervention. They will be contacting the patient. 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 Caraballo for hodgkins lymphoma, hx of uterine/cerivcal ca - they are monitoring monitor (4) Coronary artery disease: hx of cabg x 3 in 2005 no cp or ecg change mild elevation in trop, plan as above on ASA, statin, metoprolol as outpt Pt does have mild aortic valve stenosis per recent echo 02/2020, EF 60-65%, grade 1 diastolic dysfunction (5) Carotid artery disease: CTA neck reveal Moderate plaque within the proximal right internal carotid artery and mild plaque within the proximal left internal coronary artery without significant stenosis Already on high intensity statin, asa Fasting lipid panel ordered Vascular surgery consulted neurology consulted (6) Paroxysmal A-fib: Known episode of PAF follows [facility] cardiology on ASA and metoprolol Discussed with Dr. Tse, recommend to start IV heparin Patient will be discharged on aspirin Plavix, statin, Plavix is a new medication (7) HLD (hyperlipidemia): continue statin (8) Hypothyroid: continue levothyroxine (9) Anxiety: continue zoloft (10) GERD (gastroesophageal reflux disease): continue PPI (11) DVT prophylaxis: Follow up: PCP Dr. De Leon upon discharge Follow-up with ophthalmology in 4 weeks recommended as well Vascular surgery in [place], in couple of weeks Total Time Total Time Spent Total Time Spent (In Minutes): 45 Total Time Includes: Examination of the Patient, Discharge Planning, Medication Reconciliation and Communication With Other Providers Discharge Plan Discharge Items Patient Disposition: Home - Self-Care Reason For Visit: VISUL CHANGES,ELEVATED TROPONIN Discharge Diagnosis: Branch retinal artery occlusion, right eye Condition on Discharge: Fair Activity: Per Instructions section Non-emergency contact: Primary Care Provider, Surgeon and Neurologist Call non-emergency contact if: you have any medication questions and your symptoms worsen Follow-up/Referrals: Devonte De Leon MD [Primary Care Provider] - (Date & Time 05/26/2020 11:20 AM Provider Devonte De Leon MD Department Family Practice [facility] ) Diet: Heart Healthy [facility] Attending Provider Instructions: Follow-up with your primary care doctor on May 26. The appointment is already scheduled for you. Start taking Plavix, this is a new medication for you. In addition, take aspirin and statin (Crestor) as you did previously. You will need to follow-up with vascular surgery, you will be contacted about the appointment shortly. You will also need to follow-up with ophthalmology in about 4 weeks. You will be contacted about the appointment. Addtl Chief Marketing Officer Provider Instructions: Risk Factors for Stroke: You can reduce your chances of stroke by working with your medical provider to adopt a healthy lifestyle. Some specific ways to lower your chance of stroke are: * If you are a smoker, now is the time to stop smoking cigarettes * If you are diabetic, improve the control of your blood sugars * Avoid excessive amounts of alcohol * Control high blood pressure * Lose weight if you are overweight * Be sure to lead an active lifestyle * Eat a healthy diet low in salt, cholesterol and fat You should know about other risk factors for stroke that you are unable to control. These include: * Age 55 years or older * Male gender * Certain racial groups: , or / * Family History of Stroke, Mini stroke or Heart Attack * Sickle Cell Disease Follow Up: It is important for you to keep your follow up appointments with your medical provider. Who to Call and When: Medical Emergencies: Call 911 immediately if you experience any of the following warning signs and symptoms of Stroke: * Sudden numbness or weakness of the face, arm or leg, especially on one side of the body * Sudden confusion, trouble speaking or understanding * Sudden trouble seeing in one or both eyes * Sudden trouble walking, dizziness, loss of balance or coordination * Sudden severe headache with no cause Do not delay calling 911 if you experience any warning signs or symptoms of a stroke. Delay in seeking medical attention may affect what treatments can be given to you. . Pending Studies at Discharge: No Stand-Alone Forms: Work/School Release (ED), My [facility], Smoking Cessation Medications and DC Order Prescriptions: New clopidogrel 75 mg Tablet 75 mg PO QAM 30 Days Qty: 30 RF: 0 Continued levothyroxine 25 mcg tablet 25 mcg PO DAILYBB RF: 0 aspirin [Aspirin Low-Strength] 81 mg Tablet,Chewable 81 mg PO DAILY RF: 0 sertraline 50 mg tablet 25 mg PO QPM RF: 0 metoprolol succinate 200 mg Tablet Extended Release 24 Hr 100 mg PO BID RF: 0 ibuprofen [Advil] 200 mg Tablet 600 mg PO DIRECTED PRN (Reason: Pain) RF: 0 omeprazole 20 mg Capsule,Delayed Release(Dr/Ec) 20 mg PO DAILY RF: 0 rosuvastatin [Crestor] 40 mg Tablet 40 mg PO HS RF: 0 Discharge Orders: Discharge Order (Routine); Ordered 05/24/20 Ordered By: Naeem Coulter/Other Patient Handouts: A1C Admission Data Admit Date/Time: 05/23/20 09:40 Attending Provider: Naeem Gonzalez Admit Provider: Mary Reilly Primary Care Provider: Devonte De Leon Other Providers: Isadora Domingo ; Mary Reilly ; Samy Toney ; Connor Melton ; Kwesi Tse ; Jackson Light
--- NOTE | 2020-05-24 13:29 | Pharmacy Report ---
Pharmacist Stroke Counseling - Date of Service May 24, 2020 - Scope: Pharmacy has been consulted to provide medication discharge counseling for this patient admitted with retinal artery occlusion as per the Pharmacist Discharge Counseling for Stroke Patients Protocol. - Medications on Discharge: Home Medications Medication Instructions Recorded Confirmed ibuprofen [Advil] 600 mg PO DIRECTED PRN 10/22/18 05/22/20 metoprolol succinate 100 mg PO BID 10/22/18 05/22/20 omeprazole 20 mg PO DAILY 10/22/18 05/22/20 rosuvastatin [Crestor] 40 mg PO HS 10/22/18 05/22/20 levothyroxine 25 mcg PO DAILYBB 02/29/20 05/22/20 aspirin [Aspirin Low-Strength] 81 mg PO DAILY 05/22/20 05/22/20 sertraline 25 mg PO QPM 05/22/20 05/22/20 New Rx's Medication Instructions Recorded clopidogrel 75 mg PO QAM 30 Days #30 tab 05/24/20 pantoprazole 40 mg PO DAILY 30 Days #30 tab 05/24/20 - Action: The above medications have been reviewed in detail with the patient prior to discharge. This includes indication, common adverse reactions, drug interactions, and medication administration. Medication counseling has been employed using the teach-back method to ensure understanding. - Outcome: The patient demonstrated understanding of the medications. Additional comments: - Discharge counseling was completed via telephone due to COVID-19 pandemic - Patient was able to have any/all questions answered - She demonstrated good knowledge of these medications Thank you for allowing pharmacy to be involved in the care of this patient. Please call [phone] with any additional questions
--- NOTE | 2020-05-25 08:03 | Consultation ---
Date of Consultation May 25, 2020 History of Present Illness Attending Physician: Naeem Gonzalez MD History of Present Illness Patient was discharged before being seen Reviewing her chart and studies done, i would recommend urgent CEA for a hemmorhagic plaque of the carotid artery Allergies Allergy/AdvReac Type Severity Reaction Status Date / Time Penicillins Allergy Severe SOB, HIVES Verified 05/22/20 09:55 fentanyl Allergy Intermediate ITCHY HIVES Verified 05/22/20 09:55 morphine Allergy Intermediate ITCHY HIVES Verified 05/22/20 09:55 adhesive Allergy Mild LOCAL Verified 05/22/20 09:55 HIVE/RASH nitroglycerin AdvReac Intermediate profuse Verified 05/23/20 09:58 vomiting increases heart rate Home Medications Home Medications Medication Instructions Recorded Confirmed Type ibuprofen [Advil] 600 mg PO DIRECTED PRN 10/22/18 05/22/20 History metoprolol succinate 100 mg PO BID 10/22/18 05/22/20 History rosuvastatin [Crestor] 40 mg PO HS 10/22/18 05/22/20 History levothyroxine 25 mcg PO DAILYBB 02/29/20 05/22/20 History aspirin 81 mg PO DAILY 05/22/20 05/22/20 History sertraline 25 mg PO QPM 05/22/20 05/22/20 History clopidogrel 75 mg PO QAM 30 Days #30 tab 05/24/20 Rx pantoprazole 40 mg PO DAILY 30 Days #30 tab 05/24/20 Rx Patient History Medical History (Updated 05/23/20 @ 14:18 by Jackson Light MD) Aortic stenosis, moderate CAD (coronary artery disease) GERD (gastroesophageal reflux disease) History of cervical cancer History of uterine cancer HLD (hyperlipidemia) Hodgkin disease IMPRESSION: 1. No consolidation identified. 2. Nonspecific mild reticulonodular interstitial thickening within the lungs Migraine Paroxysmal A-fib Surgical History History of bone marrow biopsy History of hysterectomy History of pneumonectomy History of splenectomy History of tonsillectomy Hx of CABG x 3 2005 Family History Brother Coronary heart disease, Onset Age: 40 Father Coronary heart disease CABG Mother Breast cancer Hypertension Social History Smoking Status: Never smoker Tobacco Type: Cigarettes Second Hand Exposure: No; Hx Alcohol Use: No Hx Substance Use: No Preferred Language: Pry[place]in[place] Communication Ability: Effective Butcher'S Assistant Required: No Beliefs That Will Affect Care: None marital status: Current Living Situation: Spouse Other Information That Helps Us Care for You: No Feels Safe at Home: Yes Assistive Devices: Glasses
== END 2020-05-24 15:09 | disposition home or self-care (01) | DRG 123 ==
LOC: ED 09:35 → 2N 09:35 → SUATTDRO 11:38 → 2N 13:31